=== PATIENT | female | born 1990 | race Caucasian/White ===

== ENCOUNTER 2020-12-31 12:25 | Emergency (ER) | payer MEDICAID, SELFPAY ==
[2020-12-31 12:55] VITALS: BP 130/86; BP 132/86; PULSE 120; PULSE 123; RESP 18; TEMP 36.6; O2SAT 100; O2SAT 99; BMI 26.6
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
== END 2020-12-31 13:52 | disposition home or self-care (01) ==
PROVIDERS: Emergency Provider Emergency Medicine Emergency Medical Services
DX: S01.81XA Laceration without foreign body of other part of head, initial encounter (principal); S06.0X0A Concussion without loss of consciousness, initial encounter; G44.309 Post-traumatic headache, unspecified, not intractable; X99.1XXA Assault by knife, initial encounter; Y93.9 Activity, unspecified; Y92.410 Unspecified street and highway as the place of occurrence of the external cause; Y99.9 Unspecified external cause status
CPT/HCPCS: 12011; 99283

== ENCOUNTER 2021-04-10 15:48 | Emergency (ER) | payer MEDICAID, SELFPAY ==
[2021-04-10 16:52] VITALS: BP 134/80; PULSE 78; RESP 16; TEMP 36.8; O2SAT 98; BMI 26.6
--- NOTE | 2021-04-10 22:21 | ED.SKABFB ---
HPI - Skin/Abscess/Foreign Bdy General Chief complaint: Skin/Abscess/Foreign Body Stated complaint: Right hand cellulitis Time Seen by Provider: 04/10/21 22:16 History of Present Illness HPI narrative: Patient is a 30-year-old female with a drug. Developed redness over her dominant hand and the dorsum. Positive redness positive discharge. Patient vaccinated for COVID no cough no congestion upper respiratory symptoms. No chest pain or shortness of breath no systemic complaints Related Data Previous Rx's Medication Instructions Recorded clindamycin HCl 300 mg capsule 300 mg PO Q6H #40 cap 04/10/21 Allergies Allergy/AdvReac Type Severity Reaction Status Date / Time No Known Allergies Allergy Verified 04/10/21 16:52 [No Known Allergies*] Review of Systems Review of Systems: No fever no chills no chest pain or shortness breath no nausea no vomiting Yes all other systems are reviewed and are negative [facility] Past Medical History Attestation statement: The following information was validated with the patient. Medical History Asthma Hypothyroid Polysubstance (including opioids) dependence with physiol dependence Social History Social History Use of substances other than those prescribed or required for medical reasons: Yes Substance Use Type: Opiates Advance Directives: No Advance Directives Information Provided: No Patient : No Physical Exam Vital Signs: Vital Signs: Last Vital Signs Temp 97.2 F 04/10/21 22:29 Pulse 78 04/10/21 22:29 Resp 19 04/10/21 22:29 BP 116/72 04/10/21 22:29 Pulse Ox 98 04/10/21 22:29 BMI result Body Mass Index 26.6 Appearance: Alert. Oriented X3. No acute distress. Eyes: Pupils equal, round and reactive to light. ENT: Pharynx normal. Neck: Normal inspection. Neck supple. No lymph nodes noted. No crepitus CVS: Normal heart rate and rhythm. Pulses normal. Normal S1 and S2 Respiratory: No respiratory distress. Breath sounds normal. No Wheezing. No rales Abdomen: Soft and nontender. No rigidity. No distention. good BS x4 Skin: Positive abscess noted over the dorsum of right hand. Obvious pus oozing out from the wound. The wound is proximally 5 cm x 5 cm in size. Multiple rings noted in the finger. Extremities: No lower extremity edema. Neurovascular intact to all extremities. No Lacerations. No Rash Neuro: Oriented X 3. No motor deficit. No sensory deficit. Moving all extermities. No slurred speech MDM - Skin/Abscess/Foreign Bdy MDM Narrative Medical decision making narrative: Will have the rings removed. There is a large abscess noted over the dorsum of right hand. Patient's dominant hand. The wound was IND. Large amount of pus was expressed. Antibiotic was started. Explained to patient the need for close follow-up. Patient referred to Hand for further management. Currently in stable condition. Narcan also given. Care team involving giving patient additional tips on rehab. Post I&D patient neurovascularly intact Differential Diagnosis Differential diagnosis: Likely abscess of skin or subcutaneous tissue Medical Records Attestation: I reviewed the patient's medical records. Lab Data Attestation: I reviewed the patient's lab results. Procedures Abscess I/D Site: hand Side (if applicable): right Local Anesthetic: lidocaine 1% Amount of anesthesia used (mL): 5 Technique: incised with blade Amount of fluid expressed (mL): 10 Sent for culture/gram staining?: Yes Irrigation: Yes Packing used?: iodoform Discharge Plan Discharge Clinical Impression: Cellulitis, Abscess Patient Disposition: Home, Self-Care Instructions: Abscess (ED), Abscess Incision and Drainage (DC) Prescriptions: New clindamycin HCl 300 mg capsule 300 mg PO Q6H Qty: 40 0RF Referrals: Ameena Alatorre MD [Physician] - 2 days (Please make sure you go to rehab. Using heroin can kill you. Please go to a hand surgeon for follow-up.)
[2021-04-10] MEDS: Clindamycin HCL 300 MG CAPSULE PO (22:24)
[2021-04-10 22:29] VITALS: BP 116/72; PULSE 78; RESP 19; TEMP 36.2; O2SAT 98
--- NOTE | 2021-04-10 23:11 | MHC.CARE ---
Pt was requesting information about detox so CARE Team provided her with the list of detoxes and their contact information.
[2021-04-10] MEDS: Naloxone HCl Nasal TAKE HOME 4 MG SPRAY NOSTRILALT (23:12)
== END 2021-04-10 23:39 | disposition home or self-care (01) ==
PROVIDERS: Emergency Provider Emergency Medicine Emergency Medical Services; PCP Family Medicine
DX: L02.511 Cutaneous abscess of right hand (principal); L03.113 Cellulitis of right upper limb; F11.20 Opioid dependence, uncomplicated; F19.20 Other psychoactive substance dependence, uncomplicated
CPT/HCPCS: 10060; 87071; 87205; 99284

== ENCOUNTER 2021-07-20 20:55 | Emergency (ER) | payer MEDICAID, SELFPAY ==
[2021-07-20 21:13] VITALS: BP 110/77; BP 118/76; PULSE 104; PULSE 91; RESP 15; TEMP 36.7; O2SAT 98; O2SAT 99; BMI 25.0
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
[2021-07-20 21:29] VITALS: BP 105/75; PULSE 84; RESP 14; O2SAT 97
[2021-07-20 22:16] VITALS: BP 110/74; PULSE 84; RESP 15; O2SAT 96
--- NOTE | 2021-07-20 23:42 | HO.SUDE ---
Pt declined SUDE
[2021-07-20] MEDS: Naloxone HCl Nasal TAKE HOME 4 MG SPRAY NOSTRILALT (23:58)
== END 2021-07-20 23:58 | disposition home or self-care (01) ==
PROVIDERS: Emergency Provider Emergency Medicine Emergency Medical Services
DX: R53.83 Other fatigue (principal); T50.911A Poisoning by multiple unspecified drugs, medicaments and biological substances, accidental (unintentional), initial encounter; F11.20 Opioid dependence, uncomplicated; F19.20 Other psychoactive substance dependence, uncomplicated; Y92.480 Sidewalk as the place of occurrence of the external cause
CPT/HCPCS: 99283

== ENCOUNTER 2021-08-26 21:52 | Emergency (ER) | payer MEDICAID, SELFPAY ==
--- NOTE | ~2021-08-26 | CT_ITS ---
EXAMINATION: NONCONTRAST HEAD CT NONCONTRAST CERVICAL SPINE CT INDICATION INFORMATION: Unresponsive, head trauma COMPARISON: None TECHNIQUE: Separate noncontrast CT examinations of the head and cervical spine were performed. Coronal head CT images and coronal and sagittal cervical spine images were created at the technologist workstation. DLP: 1133 mGy-cm DOSE LOWERING TECHNIQUES: This CT examination was performed using dose optimization techniques as appropriate, variously including the following: - Automated exposure control - Adjustment of mA and/or kV according to patient size (this includes techniques or standardized protocols for targeted exams were dose is matched to indication/reason for exam; i.e. extremities or head) - Use of iterative reconstruction technique FINDINGS: Head: Limited assessment in some regions due to motion artifact. There is no evidence of acute intracranial hemorrhage or territorial infarction. No abnormal mass-effect or midline shift is seen. [place] to white matter differentiation is well preserved. No extra-axial fluid collections are identified. The ventricles are normal in size. There is no abnormal attenuation within the brain parenchyma. No acute fracture is seen. There is anterior inferior frontal scalp soft tissue swelling. Mucous retention cyst noted in the left maxillary sinus. The mastoid air cells are well-aerated. Cervical spine: Limited evaluation in some regions due to motion artifact. There is anatomic alignment of the vertebral bodies and posterior elements. Vertebral body heights are maintained. Intervertebral disc spaces are preserved. No appreciable acute fracture. No prevertebral soft tissue swelling. Visualized portions of the lung apices are unremarkable. The thyroid gland is unremarkable. CT/CT cervical spine wo con IMPRESSION: Limited evaluation of the head and cervical spine due to motion artifact. Grossly, no acute findings identified.
--- NOTE | 2021-08-26 21:54 | ECG_ITS ---
Test Reason : OVERDOSED Blood Pressure : / mmHG Vent. Rate : 046 BPM Atrial Rate : 046 BPM P-R Int : 122 ms QRS Dur : 094 ms QT Int : 434 ms P-R-T Axes : -25 071 065 degrees QTc Int : 379 ms Poor data quality, interpretation may be adversely affected Sinus bradycardia Otherwise normal ECG When compared with ECG of 04-OCT-2018 21:31, Vent. rate has decreased BY 38 BPM Non-specific change in ST segment in Inferior leads Non-specific change in ST segment in Anterior leads T wave inversion no longer evident in Inferior leads T wave inversion less evident in Anterolateral leads QT has shortened Referred By: David Roberts Electronically Signed By:KAMAR ROJAS MD
[2021-08-26 22:14] VITALS: BP 125/83; PULSE 53; RESP 17; TEMP 36.7; O2SAT 99
--- NOTE | 2021-08-26 22:34 | ED_ITS ---
HPI - General Adult General Chief complaint: ETOH/Substance Use Stated complaint: od/ altered mental/fall Time Seen by Provider: 08/26/21 22:13 Source: EMS and old records reviewed Mode of arrival: EMS Limitations: altered mental status History of Present Illness HPI narrative: 31-year-old female found by a bystander unresponsive on the backyard of in- house, reviewing old record of the patient patient had a history of drug abuse, patient was given Narcan by EMS with slight responsiveness, patient was sleeping outside in the rain, patient response to painful stimuli and sternal rub, history is not obtainable from the patient at the moment, patient has a dry blood on her right side of the face. Concern by EMS that the patient was bradycardic. Related Data Previous Rx's Medication Instructions Recorded clindamycin HCl 300 mg capsule 300 mg PO Q6H #40 caps 04/10/21 Allergies Allergy/AdvReac Type Severity Reaction Status Date / Time No Known Allergies Allergy Verified 04/10/21 16:52 [No Known Allergies*] Review of Systems Review of Systems: Yes Unobtainable due to mental status PMFSH Past Medical History Medical History Asthma Hypothyroid Polysubstance (including opioids) dependence with physiol dependence Social History Social History Substance Use Type: Opiates Advance Directives: No Advance Directives Information Provided: No Physical Exam ED Vital Signs: Vital Signs - 24 hr 08/26/21 22:14 08/26/21 23:42 08/27/21 00:25 Temperature 98.0 F 97.9 F 98.2 F Pulse Rate 53 67 59 Respiratory Rate 17 15 18 Blood Pressure 125/83 112/73 124/68 Pulse Oximetry 99 99 98 Oxygen Delivery Method Room Air Room Air 08/27/21 01:39 08/27/21 02:47 08/27/21 04:08 Temperature 98.1 F 98.4 F 97.1 F Pulse Rate 59 82 58 Respiratory Rate 13 11 L 13 Blood Pressure 106/66 107/75 111/73 Pulse Oximetry 97 100 98 Oxygen Delivery Method Room Air Room Air Room Air BMI result Body Mass Index 26.4 Vital signs have been reviewed as appeared to be correct. Blood pressure yareli l. Heart rate normal. Respiration rate normal. Temperature normal. Oxygen saturation normal. Appearance: Unresponsive Head: Normal external exam. Normocephalic. Dry blood on the right eyelid was small superficial laceration on the eyelid about 0.8 cm with no active blee ding.. No Campbell signs noted. No raccoon eyes noted Eyes: PERRLA. EOMI. Conjunctiva and sclera normal. Eyelids normal. ENT: TM's Normal. Pharynx normal. Uvula midline. Moist mucous membranes. No trismus noted. No drooling noted. No muffled voice noted. Neck: Normal inspection. Neck supple. FROM. No adenopathy. Thyroid Normal. No meningeal signs. No neck mass noted. CVS: Normal heart rate and rhythm. Heart sound normal. No murmurs noted. Pulses normal throughout. Respiratory: No respiratory distress. Painless inspiration. Breath sounds normal. No wheezes/rales/rhonchi noted. Chest nontender. No accessory muscle usage noted or decreased air movement noted. Abdomen: Soft and nontender. Bowel sounds normal in all 4 quadrants. No distention noted. No organomegaly noted. No visible injury noted. Back: No CVA tenderness. Full range of motion noted. Skin: Skin warm and dry. Normal skin color. Normal skin turgor. No rashes/lesions/lacerations noted. Extremities: No lower extremity edema. Extremities exhibit normal range of motion. Extremities nontender. Neuro: Fully responsive to painful stimuli and sternal rubbing.. Cranial nerve exam: II-XII are grossly intact No motor deficit. No sensory deficit. Reflexes normal. Course Course Course Narrative: 31 years old female was found last night by bystander on the backyard, patient initially was on conscious, patient was observed overnight in the ED had a negative CT head and C-spine, patient was positive for polysubstance in the urine, patient now is waking up more awake and oriented, patient admitted that she is homeless she live in [facility], patient be discharged after breakfast. Medical Decision Making Lab Data Lab results reviewed: Yes I reviewed the patient's lab results. Result diagrams: 08/26/21 22:45 08/26/21 22:45 Labs: Lab Results 08/26/21 08/26/21 08/26/21 Range/Units 22:45 22:45 22:45 WBC 7.7 (4.8-10.8) X10*3/uL RBC 4.55 (4.20-5.50) X10*6/uL Hgb 13.4 (12.0-16.0) g/dl Hct 39.5 (37.0-47.0) % MCV 86.8 (80.0-98.0) fL MCH 29.5 (27.0-33.0) pg MCHC 33.9 (31.0-35.0) g/dl RDW 13.4 (11.0-16.0) % Plt Count 356 (160-400) X10*3/uL MPV 8.7 L (9.4-12.3) fL Immature Gran % (Auto) 0.1 (0.0-0.4) % Neut % (Auto) 51.7 (45-73) % Lymph % (Auto) 39.0 (20-40) % [place] % (Auto) 6.9 (2-11) % Eos % (Auto) 1.4 (0-4) % Baso % (Auto) 0.9 (0-2) % Lymph # (Auto) 3.0 (1.2-4.9) X10*3/uL [place] # (Auto) 0.5 (0.1-1.2) X10*3/uL Eos # (Auto) 0.1 (0.0-0.4) X10*3/uL Baso # (Auto) 0.1 (0.0-0.2) X10*3/uL Abs Immat Gran (auto) 0.01 (0.00-0.03) X10*3/uL Absolute Neuts (auto) 4.0 (2.0-8.3) x10*3/uL Absolute Nucleated RBC 0.000 (0.0-0.012) X10*3/uL Nucleated RBC % (auto) 0.0 (0.0-0.2) /100WBC Sodium 143 (135-145) mmol/L Potassium 3.7 (3.3-5.1) mmol/L Chloride 109 H (96-108) mmol/L Carbon Dioxide 22 (22-29) mmol/L Anion Gap 16 (12-20) BUN 12 (9-16) mg/dL Creatinine 0.79 (0.5-1.4) mg/dL Estim Creat Clear Calc TNP Estimated GFR > 60 Random Glucose 97 (60-115) mg/dL Calcium 8.9 (8.4-10.2) mg/dL Total Bilirubin 0.5 (0.0-1.0) mg/dL Direct Bilirubin 0.2 (0.0-0.5) mg/dL AST 25 (5-31) U/L ALT 16 (0-31) U/L Alkaline Phosphatase 71 (39-117) U/L Troponin I High Sens < 3.5 (<3.5-17.0) ng/L Total Protein 7.1 (6.5-8.0) g/dL Albumin 4.3 (3.5-5.0) g/dL Lipase 16 (8-78) U/L Urine Color Urine Appearance Urine pH (5.0-8.0) Ur Specific [place] (1.005-1.025) Urine Protein (NEG-TRACE) MG/DL Urine Glucose (UA) (NEG) MG/DL Urine Ketones (NEG) MG/DL Urine Blood (NEG) Urine Nitrite (NEG) Ur Leukocyte Esterase (NEG) Urine Test (NEGATIVE) Salicylates < 5.0 L (15-30) mg/dL Urine Opiates Screen (Not Detect) Urine Fentanyl Screen (Not Detect) Acetaminophen < 1 (<30) mcg/mL Ur Barbiturates Screen (Not Detect) Ur Phencyclidine Scrn (Not Detect) Ur Amphetamines Screen (Not Detect) U Benzodiazepines Scrn (Not Detect) Urine Cocaine Screen (Not Detect) U Marijuana (THC) Screen (Not Detect) Ethyl Alcohol < 10 mg/dL COVID-19 ([facility]) (Negative) COVID-19 Clin Com 08/26/21 08/27/21 08/27/21 Range/Units 22:45 02:15 02:15 WBC (4.8-10.8) X10*3/uL RBC (4.20-5.50) X10*6/uL Hgb (12.0-16.0) g/dl Hct (37.0-47.0) % MCV (80.0-98.0) fL MCH (27.0-33.0) pg MCHC (31.0-35.0) g/dl RDW (11.0-16.0) % Plt Count (160-400) X10*3/uL MPV (9.4-12.3) fL Immature Gran % (Auto) (0.0-0.4) % Neut % (Auto) (45-73) % Lymph % (Auto) (20-40) % [place] % (Auto) (2-11) % Eos % (Auto) (0-4) % Baso % (Auto) (0-2) % Lymph # (Auto) (1.2-4.9) X10*3/uL [place] # (Auto) (0.1-1.2) X10*3/uL Eos # (Auto) (0.0-0.4) X10*3/uL Baso # (Auto) (0.0-0.2) X10*3/uL Abs Immat Gran (auto) (0.00-0.03) X10*3/uL Absolute Neuts (auto) (2.0-8.3) x10*3/uL Absolute Nucleated RBC (0.0-0.012) X10*3/uL Nucleated RBC % (auto) (0.0-0.2) /100WBC Sodium (135-145) mmol/L Potassium (3.3-5.1) mmol/L Chloride (96-108) mmol/L Carbon Dioxide (22-29) mmol/L Anion Gap (12-20) BUN (9-16) mg/dL Creatinine (0.5-1.4) mg/dL Estim Creat Clear Calc Estimated GFR Random Glucose (60-115) mg/dL Calcium (8.4-10.2) mg/dL Total Bilirubin (0.0-1.0) mg/dL Direct Bilirubin (0.0-0.5) mg/dL AST (5-31) U/L ALT (0-31) U/L Alkaline Phosphatase (39-117) U/L Troponin I High Sens (<3.5-17.0) ng/L Total Protein (6.5-8.0) g/dL Albumin (3.5-5.0) g/dL Lipase (8-78) U/L Urine Color YELLOW Urine Appearance CLEAR Urine pH 6.0 (5.0-8.0) Ur Specific [place] 1.025 (1.005-1.025) Urine Protein NEG (NEG-TRACE) MG/DL Urine Glucose (UA) NEG (NEG) MG/DL Urine Ketones 15 (NEG) MG/DL Urine Blood NEG (NEG) Urine Nitrite NEG (NEG) Ur Leukocyte Esterase NEG (NEG) Urine Test NEGATIVE (NEGATIVE) Salicylates (15-30) mg/dL Urine Opiates Screen (Not Detect) Urine Fentanyl Screen (Not Detect) Acetaminophen (<30) mcg/mL Ur Barbiturates Screen (Not Detect) Ur Phencyclidine Scrn (Not Detect) Ur Amphetamines Screen (Not Detect) U Benzodiazepines Scrn (Not Detect) Urine Cocaine Screen (Not Detect) U Marijuana (THC) Screen (Not Detect) Ethyl Alcohol mg/dL COVID-19 ([facility]TE) Negative (Negative) COVID-19 Clin Com See Note 08/27/21 Range/Units 02:15 WBC (4.8-10.8) X10*3/uL RBC (4.20-5.50) X10*6/uL Hgb (12.0-16.0) g/dl Hct (37.0-47.0) % MCV (80.0-98.0) fL MCH (27.0-33.0) pg MCHC (31.0-35.0) g/dl RDW (11.0-16.0) % Plt Count (160-400) X10*3/uL MPV (9.4-12.3) fL Immature Gran % (Auto) (0.0-0.4) % Neut % (Auto) (45-73) % Lymph % (Auto) (20-40) % [place] % (Auto) (2-11) % Eos % (Auto) (0-4) % Baso % (Auto) (0-2) % Lymph # (Auto) (1.2-4.9) X10*3/uL [place] # (Auto) (0.1-1.2) X10*3/uL Eos # (Auto) (0.0-0.4) X10*3/uL Baso # (Auto) (0.0-0.2) X10*3/uL Abs Immat Gran (auto) (0.00-0.03) X10*3/uL Absolute Neuts (auto) (2.0-8.3) x10*3/uL Absolute Nucleated RBC (0.0-0.012) X10*3/uL Nucleated RBC % (auto) (0.0-0.2) /100WBC Sodium (135-145) mmol/L Potassium (3.3-5.1) mmol/L Chloride (96-108) mmol/L Carbon Dioxide (22-29) mmol/L Anion Gap (12-20) BUN (9-16) mg/dL Creatinine (0.5-1.4) mg/dL Estim Creat Clear Calc Estimated GFR Random Glucose (60-115) mg/dL Calcium (8.4-10.2) mg/dL Total Bilirubin (0.0-1.0) mg/dL Direct Bilirubin (0.0-0.5) mg/dL AST (5-31) U/L ALT (0-31) U/L Alkaline Phosphatase (39-117) U/L Troponin I High Sens (<3.5-17.0) ng/L Total Protein (6.5-8.0) g/dL Albumin (3.5-5.0) g/dL Lipase (8-78) U/L Urine Color Urine Appearance Urine pH (5.0-8.0) Ur Specific [place] (1.005-1.025) Urine Protein (NEG-TRACE) MG/DL Urine Glucose (UA) (NEG) MG/DL Urine Ketones (NEG) MG/DL Urine Blood (NEG) Urine Nitrite (NEG) Ur Leukocyte Esterase (NEG) Urine Test (NEGATIVE) Salicylates (15-30) mg/dL Urine Opiates Screen POSITIVE H (Not Detect) Urine Fentanyl Screen POSITIVE H (Not Detect) Acetaminophen (<30) mcg/mL Ur Barbiturates Screen Not Detected (Not Detect) Ur Phencyclidine Scrn Not Detected (Not Detect) Ur Amphetamines Screen Not Detected (Not Detect) U Benzodiazepines Scrn Not Detected (Not Detect) Urine Cocaine Screen POSITIVE H (Not Detect) U Marijuana (THC) Screen Not Detected (Not Detect) Ethyl Alcohol mg/dL COVID-19 ([facility]TE) (Negative) COVID-19 Clin Com Imaging Data Head and cervical spine CT: Attestation: I personally reviewed and interpreted this imaging study as follows: Radiologist's impression: Limited evaluation of the head and cervical spine due to motion artifact. Grossly, no acute findings identified. Discharge Plan Discharge Clinical Impression: Polysubstance abuse Patient Disposition: Home, Self-Care Instructions: Polysubstance Abuse (ED) Prescriptions: No Action clindamycin HCl 300 mg capsule 300 mg PO Q6H Qty: 40 0RF Referrals: Physician,Unknown J [Primary Care Provider] -
[2021-08-26 22:51] LABS: MANUAL DIFF FLAG NO
[2021-08-26 22:58] LABS: Basophils Absolute Auto 0.1 X10*3/uL (0.0-0.2); Basophils Percent Auto 0.9 % (0-2); Eosinophils Absolute Auto 0.1 X10*3/uL (0.0-0.4); Eosinophils Percent Auto 1.4 % (0-4); Hematocrit 39.5 % (37.0-47.0); Hemoglobin 13.4 g/dl (12.0-16.0); Imm Gran Abs Auto 0.01 X10*3/uL (0.00-0.03); Imm Gran Pct Auto 0.1 % (0.0-0.4); Mean Corpuscular HGB Conc 33.9 g/dl (31.0-35.0); Mean Corpuscular Hemoglobin 29.5 pg (27.0-33.0); Mean Corpuscular Volume 86.8 fL (80.0-98.0); Mean Platelet Volume 8.7 fL (9.4-12.3); Monocytes Absolute Auto 0.5 X10*3/uL (0.1-1.2); Monocytes Percent Auto 6.9 % (2-11); Neutrophils Percent Auto 51.7 % (45-73); Platelet Count 356 X10*3/uL (160-400); Red Blood Count 4.55 X10*6/uL (4.20-5.50); Red Cell Distribution Width 13.4 % (11.0-16.0); White Blood Count 7.7 X10*3/uL (4.8-10.8)
[2021-08-26 23:16] LABS: COVID-19 Test Negative (Negative); IDNOW Serial# 16C4AD1C
[2021-08-26 23:20] LABS: Alanine Aminotransferase 16 U/L (0-31); Albumin Level 4.3 g/dL (3.5-5.0); Alkaline Phosphatase 71 U/L (39-117); Anion Gap 16 (12-20); Aspartate Amino Transferase 25 U/L (5-31); Bilirubin Direct 0.2 mg/dL (0.0-0.5); Bilirubin Total 0.5 mg/dL (0.0-1.0); Blood Urea Nitrogen 12 mg/dL (9-16); Calcium 8.9 mg/dL (8.4-10.2); Carbon Dioxide 22 mmol/L (22-29); Chloride 109 mmol/L (96-108); Estimated Glomerular Filt Rate > 60; Ethanol < 10 mg/dL; Glucose Random 97 mg/dL (60-115); Lipase 16 U/L (8-78); Potassium 3.7 mmol/L (3.3-5.1); Sodium 143 mmol/L (135-145); Total Protein 7.1 g/dL (6.5-8.0)
[2021-08-26 23:25] LABS: Troponin-I High Sensitivity < 3.5 ng/L (<3.5-17.0)
[2021-08-26 23:42] VITALS: BP 112/73; PULSE 67; RESP 15; TEMP 36.6; O2SAT 99
[2021-08-27] VITALS (7 sets, daily range): BP systolic 106–154; BP diastolic 66–90; PULSE 50–85; RESP 11–18; TEMP 36.2–36.9; O2SAT 95–100; BMI 26.4
--- NOTE | 2021-08-27 00:21 | PC.NURSE ---
Multiple attempts to insert IV line by multiple staff members-no success-pt is a difficult stick-provider Dr. Roberts notified-no new orders at this time.
[2021-08-27 01:33] LABS: Acetaminophen LAB < 1 mcg/mL (<30); Salicylate < 5.0 mg/dL (15-30)
[2021-08-27 02:26] LABS: Appearance Urine CLEAR; Color Urine YELLOW; Glucose Urine UA NEG (NEG); Leukocyte Esterase Urine NEG (NEG); Nitrite Urine NEG (NEG); Specific Gravity - Urine 1.025 (1.005-1.025); Urine Blood NEG (NEG); Urine Ketones 15 MG/DL (NEG); Urine Protein NEG (NEG-TRACE)
[2021-08-27 02:27] LABS: UPreg QC Valid YES; Urine Pregnancy NEGATIVE (NEGATIVE)
[2021-08-27 02:37] LABS: Amphetamine Screen Urine Not Detected (Not Detect); Barbiturates, Urine Not Detected (Not Detect); Benzodiazepines Screen Urine Not Detected (Not Detect); Cannabinoid Screen Urine Not Detected (Not Detect); Cocaine Screen Urine POSITIVE (Not Detect); Fentanyl, urine POSITIVE (Not Detect); Opiate Screen Urine POSITIVE (Not Detect); Phencyclidine Screen Urine Not Detected (Not Detect)
== END 2021-08-27 07:23 | disposition home or self-care (01) ==
PROVIDERS: Emergency Provider Emergency Medicine
DX: R41.82 Altered mental status, unspecified (principal); R00.1 Bradycardia, unspecified; M54.2 Cervicalgia; Z20.822 Contact with and (suspected) exposure to COVID-19; Z79.899 Other long term (current) drug therapy
CPT/HCPCS: 70450; 72125; 80048; 80076; 80143; 80179; 80307; 81003; 81025; 82077; 83690; 84484; 85025; 87635; 93005; 96360; 99284; 99285

== ENCOUNTER 2021-09-25 18:38 | Emergency (ER) | payer MEDICAID, SELFPAY ==
[2021-09-25 18:46] VITALS: BP 129/88; PULSE 112; RESP 18; TEMP 37.1; O2SAT 98; BMI 23.3
== END 2021-09-26 02:02 | disposition left against medical advice (07) ==
PROVIDERS: Emergency Provider Emergency Medicine
DX: L03.116 Cellulitis of left lower limb (principal); F19.10 Other psychoactive substance abuse, uncomplicated; F11.20 Opioid dependence, uncomplicated
CPT/HCPCS: 99281

== ENCOUNTER 2022-01-06 18:40 | Emergency (ER) | payer OTHER, SELFPAY ==
--- NOTE | ~2022-01-06 | CT_ITS ---
EXAMINATION: CT ABDOMEN AND PELVIS WITH CONTRAST CLINICAL INFORMATION: Bilateral flank pain with question of pyelonephritis COMPARISON: None TECHNIQUE: Multidetector volumetric images were obtained from the superior aspect of the liver through the pubic symphysis following administration 85 mL of Omnipaque 350 intravenous contrast. Sagittal and coronal reformatted images were obtained on the technologist's workstation. Oral contrast: No This CT examination was performed using dose optimization techniques as appropriate, variously including the following: *Automated exposure control *Adjustment of mA and/or kV according to patient size (this includes techniques or standardized protocols for targeted exams where dose is matched to indication/reason for exam; i.e. extremities or head) *Use of iterative reconstruction technique DLP: 737 mGy-cm FINDINGS: LUNG BASES: The visualized lung bases are unremarkable. LIVER, GALLBLADDER, AND BILIARY TREE: The liver is mildly enlarged measuring 18.9 cm in cephalocaudad dimension. No focal hepatic lesion or significant biliary ductal dilatation is present. There is some minimal prominence of central bile ducts. The common bile duct measures 0.5 cm. The gallbladder is unremarkable with no evidence of radiopaque gallstones, gallbladder wall thickening, or obvious pericholecystic inflammatory changes. PANCREAS: Unremarkable. SPLEEN: Unremarkable. ADRENAL GLANDS: Unremarkable. KIDNEYS AND URETERS: The kidneys are normal in size, shape, and attenuation. No striated nephrogram is seen. No focal hypodensities are seen. No hydronephrosis, hydroureter, or calculi seen. No perinephric stranding. BLADDER: Unremarkable. GASTROINTESTINAL TRACT: The small and large bowel are unremarkable. There is a moderate stool burden in the colon The appendix is unremarkable. ABDOMINAL WALL: No significant hernia is appreciated. LYMPH NODES: No retroperitoneal lymphadenopathy. VASCULAR: Unremarkable. PELVIC VISCERA: An anteverted uterus is present with an IUD in good position. An abnormal adnexal mass is not seen. Trace fluid present in the cul-de-sac. OSSEOUS STRUCTURES: Unremarkable. CT/CT abdomen pelvis w IV con IMPRESSION: A cause for the patient's flank pain has not been found. No renal abnormalities are seen and there is no CT evidence to suggest pyelonephritis. Incidental note made of mild hepatomegaly and a moderate stool burden in the colon and other findings described above. Fleischner guidelines were followed.
[2022-01-06 18:57] VITALS: BP 157/87; PULSE 94; RESP 18; TEMP 36.2; O2SAT 97; BMI 27.1
--- NOTE | 2022-01-06 19:12 | ED_ITS ---
HPI - Abdominal Pain General Chief Complaint: Abdominal Pain <Glenn Fields MD - Last Filed: 01/06/22 19:13> Stated Complaint: Kidney Pain <Glenn Fields MD - Last Filed: 01/06/22 19:13> Time Seen by Provider: 01/06/22 21:17 <Glenn Fields MD - Last Filed: 01/06/22 19:13> Source: patient <MARIA ESTHER Walters - Last Filed: 01/07/22 01:09> Mode of arrival: ambulatory <MARIA ESTHER Walters - Last Filed: 01/07/22 01:09> Limitations: no limitations <MARIA ESTHER Walters - Last Filed: 01/07/22 01:09> History of Present Illness HPI narrative: 31 year old female history of polysubstance, hypothyroid, asthma, and pyelonephritis 1 year ago presents today with 3 days history of dysuria and lower right flank pain. Associated symptoms include chills, dysuria, increased frequency of urination. Pain is described as a stabbing right lower flank pain that comes and goes. Rates the pain a 8/10. Did not take any medications at home. Admits to daily drug use including fentanyl and heroin, last usage was this morning, 1 bag. Denies shortness of breath, chest pain, nausea, vomiting, diarrhea, hematuria, abnormal vaginal discharge. Does does not get a menstrual due to having an IUD. Denies chance of or STD. Patient also presents with a with a bump on the posterior aspect of head, associated erythema and pain. Denies any purulent discharge from the area. Denies any trauma to the area, no head trauma. Patient is homeless. <MARIA ESTHER Walters - Last Filed: 01/07/22 01:09> Related Data Home Medications: Previous Rx's Medication Instructions Recorded clindamycin HCl 300 mg capsule 300 mg PO Q6H #40 caps 04/10/21 levofloxacin 750 mg tablet 750 mg PO DAILY 7 days #7 tabs 01/07/22 <Glenn Fields MD - Last Filed: 01/06/22 19:13> Allergies/Adverse Reactions: Allergies Allergy/AdvReac Type Severity Reaction Status Date / Time No Known Allergies Allergy Verified 04/10/21 16:52 [No Known Allergies*] <Glenn Fields MD - Last Filed: 01/06/22 19:13> Review of Systems Review of Systems Constitutional : No Weight loss, No Fever, + Chills, No Fatigue, No Malaise HEENT/Mouth : Bump on head, No sore throat, No Rhinorrhea Eyes: No Eye Pain, No Swelling, No Redness Cardiovascular : No Chest Pain, No SOB, No Dyspnea on Exertion, No Orthopnea, No Edema, No Palpitations Respiratory : No Cough, No Sputum, No Wheezing Gastrointestinal : No Nausea, No Vomiting, No Diarrhea, No Constipation, + abdominal Pain, No Hematochezia, No Melena Genitourinary : + Dysuria, + Urinary Frequency, No Hematuria, + right lower flank pain Musculoskeletal : No joint pain, No Myalgias, No Joint Swelling Skin : No Skin Lesions, No rash Neuro : No Weakness, No Numbness, No Dizziness, No Headache Psych : No Anxiety/Panic, No Depression All other systems reviewed and are negative <MARIA ESTHER Walters - Last Filed: 01/07/22 01:09> Yes all other systems are reviewed and are negative <MARIA ESTHER Walters - Last Filed: 01/07/22 01:09> [facility] Past Medical History Attestation statement: The following information was validated with the patient. <MARIA ESTHER Walters - Last Filed: 01/07/22 01:09> Source: old records reviewed and nursing notes reviewed <MARIA ESTHER Walters - Last Filed: 01/07/22 01:09> Medical History: Medical History Asthma Hypothyroid Polysubstance (including opioids) dependence with physiol dependence <Glenn Fields MD - Last Filed: 01/06/22 19:13> Social History Social History: Social History Alcohol intake: current Alcohol intake frequency: a few times a week Smoked in Last 30 Days: Yes Substance Use Type: Crack/Cocaine, Heroin and Opiates Advance Directives: No Patient : No <Glenn Fields MD - Last Filed: 01/06/22 19:13> Physical Exam ED Vital Signs: Vital Signs - 24 hr 01/06/22 18:57 01/06/22 22:00 Temperature 97.2 F 97.7 F Pulse Rate 94 60 Respiratory Rate 18 Blood Pressure 157/87 H 110/76 Pulse Oximetry 97 95 Oxygen Delivery Method Room Air Room Air BMI result Body Mass Index 27.1 <Glenn Fields MD - Last Filed: 01/06/22 19:13> Vital Signs - 24 hr 01/06/22 18:57 01/06/22 22:00 Temperature 97.2 F 97.7 F Pulse Rate 94 60 Respiratory Rate 18 Blood Pressure 157/87 H 110/76 Pulse Oximetry 97 95 Oxygen Delivery Method Room Air Room Air BMI result Body Mass Index 27.1 vss <MARIA ESTHER Walters - Last Filed: 01/07/22 01:09> Appearance: Alert.? Oriented X3.? No acute distress.? Head: Normocephalic, atraumatic, no step-offs or deformities. Moderate size lump/indurated area to the posterior apex of the head, no fluctuance, or overlying warmth. Eyes: Pupils equal, round and reactive to light.? ENT: Pharynx normal.? Neck: Normal inspection.? Neck supple.? CVS: Normal heart rate and rhythm.? Pulses normal.? Respiratory: No respiratory distress.? Breath sounds normal.? Abdomen: Soft and nontender.?Bladder mildly distended, tender to palpation. Skin: Skin warm and dry.? Normal skin color.? Normal skin turgor.? Extremities: No lower extremity edema.? No calf ttp. 5/5 strength to bilateral upper and lower extremities Back: No midline tenderness, no C-spine tenderness, full range of motion, + CVA tenderness to right flank area Neuro: Oriented X 3.? No motor deficit.? No sensory deficit. CN 2-12 intact . Ambulating with steady gait normal coordination. Normal [id number]. Normal rapid alternating movements. NIH stroke scale 0 <MARIA ESTHER Walters - Last Filed: 01/07/22 01:09> Course Reevaluation(s) Reevaluation #1: 31 yo female presents to the ED with lower abdominal pain, dysuria and foul smelling urine for a few days. No fevers, chills or other complaints. No nausea, vomiting or diarrhea. Urine labs sent. <Glenn Fields MD - Last Filed: 01/06/22 19:13> 31 yo female presents to the ED with lower abdominal pain, dysuria, chills, abd foul smelling urine for a few days. No fevers, nausea, vomiting or diarrhea. Urine labs sent. Will order CT abdomen with contrast to rule out/in pyelo. <MARIA ESTHER Walters - Last Filed: 01/07/22 01:09> Time: 19:12 <Glenn Fields MD - Last Filed: 01/06/22 19:13> Reevaluation #2: UA reveals urine nitrates and urine leukocyte esterase consistent with UTI. . CBC unremarkable. Chem w/o electrolyte abnormalities on exam. Pending lactic, cultures and ct abd and pelvis. <MARIA ESTHER Walters - Last Filed: 01/07/22 01:09> Time: 21:51 <MARIA ESTHER Walters - Last Filed: 01/07/22 01:09> Reevaluation #3: Lactic him normal limits. CT of the abdomen pelvis unable to identify cause for patient's flank pain, no renal abnormalities noted. No signs of pyelo on imaging. However based off patient's physical exam was CVA tenderness and positive urine will treat with Levaquin to cover for pyelonephritis. Will have her follow-up with Urology. Educated to return with any new or worsening symptoms, educated on worrisome signs and symptoms and when to return. Comfortable discharge <MARIA ESTHER Walters - Last Filed: 01/07/22 01:09> Time: 01:06 <MARIA ESTHER Walters - Last Filed: 01/07/22 01:09> Medications Administered Discontinued Medications Generic Name Dose Route Start Last Admin Trade Name Freq PRN Reason Stop Dose Admin Ceftriaxone Sodium 1 gm/ 50 mls @ 100 mls/hr 01/06/22 21:49 01/07/22 00:48 Sodium Chloride IV 01/06/22 22:18 100 mls/hr ONCE ONE Administration Iohexol 85 ml 01/07/22 00:31 01/07/22 00:32 Iohexol 350 Mg/Ml 100 Ml Infus..Btl IV 01/07/22 00:32 85 ml ONCE ONE Administration <Glenn Fields MD - Last Filed: 01/06/22 19:13> Medications Administered Discontinued Medications Generic Name Dose Route Start Last Admin Trade Name Edgar PRN Reason Stop Dose Admin Ceftriaxone Sodium 1 gm/ 50 mls @ 100 mls/hr 01/06/22 21:49 01/07/22 00:48 Sodium Chloride IV 01/06/22 22:18 100 mls/hr ONCE ONE Administration Iohexol 85 ml 01/07/22 00:31 01/07/22 00:32 Iohexol 350 Mg/Ml 100 Ml Infus..Btl IV 01/07/22 00:32 85 ml ONCE ONE Administration <MARIA ESTHER Walters - Last Filed: 01/07/22 01:09> MDM - Abdominal Pain MDM Narrative Medical decision making narrative: 2103 31-year-old female with a past pertinent medical history of substance abuse and pyelonephritis presents today to the emergency department with 3 days of dysuria, foul smelling urine, increased urination, right lower flank pain, and unrelated mass on posterior head. PE remarkable for right lower flank pain as well as a indurated mass on the posterior head with associated erythema. Concers for UTI vs cystitis vs pylo. No sign of acute abdomen. Unlikley appendicitis, diverticulits, kidney stone, obstructive uropathy. Will obtain CT abdomen with contrast to r/o pyelo. Indurated area on head unlikely hematoma or abscess as it is not fluctuant. No head trauma. Unlikely stroke, posterior stroke, cerebellar stroke. Likely nodule as it is hard. Advised to follow-up with PCP to monitor this. Nothing to do about it in an acute setting. Plan- labs, urine, imaging <MARIA ESTHER Walters - Last Filed: 01/07/22 01:09> Medical Records Attestation: I reviewed the patient's medical records. <MARIA ESTHER Walters - Last Filed: 01/07/22 01:09> Lab Data Attestation: I reviewed the patient's lab results. <MARIA ESTHER Walters - Last Filed: 01/07/22 01:09> Result diagrams: : 01/06/22 19:17 01/06/22 19:17 <Glenn Fields MD - Last Filed: 01/06/22 19:13> Labs: Lab Results 01/06/22 01/06/22 01/06/22 Range/Units 19:17 19:17 19:17 WBC 7.3 (4.8-10.8) X10*3/uL RBC 4.44 (4.20-5.50) X10*6/uL Hgb 13.3 (12.0-16.0) g/dl Hct 39.2 (37.0-47.0) % MCV 88.3 (80.0-98.0) fL MCH 30.0 (27.0-33.0) pg MCHC 33.9 (31.0-35.0) g/dl RDW 13.1 (11.0-16.0) % Plt Count 362 (160-400) X10*3/uL MPV 8.6 L (9.4-12.3) fL Absolute Nucleated RBC 0.000 (0.0-0.012) X10*3/uL Nucleated RBC % (auto) 0.0 (0.0-0.2) /100WBC Sodium 141 (135-145) mmol/L Potassium 3.8 (3.3-5.1) mmol/L Chloride 105 (96-108) mmol/L Carbon Dioxide 27 (22-29) mmol/L Anion Gap 13 (12-20) BUN 9 (9-16) mg/dL Creatinine 0.74 (0.5-1.4) mg/dL Estim Creat Clear Calc 108.9 Estimated GFR > 60 Random Glucose 106 (60-115) mg/dL Lactic Acid (0.5-2.0) mmol/L Calcium 9.3 (8.4-10.2) mg/dL Total Bilirubin 0.3 (0.0-1.0) mg/dL AST 19 (5-31) U/L ALT 12 (0-31) U/L Alkaline Phosphatase 73 (39-117) U/L Total Protein 7.1 (6.5-8.0) g/dL Albumin 4.4 (3.5-5.0) g/dL Beta HCG, Quant < 2 mIU/mL Urine Color Dark Yellow Urine Appearance Cloudy Urine pH 6.5 (5.0-9.0) Ur Specific [place] 1.020 (1.005-1.025) Urine Protein 30 (1+) H (Neg-Trace) mg/dL Urine Glucose (UA) Negative (Negative) mg/dL Urine Ketones Trace (Negative) mg/dL Urine Blood Small (1+) H (Negative) Urine Nitrite Positive H (Negative) Ur Leukocyte Esterase Moderate (2+) H (Negative) Urine RBC 3-5 H (0-2) /HPF Urine WBC 11-20 H (0-5) /HPF Ur Squamous Epith Cells 3-5 (0-2) /HPF Urine Bacteria 4+ (None Seen) Hyaline Casts 0-2 (0-2) /LPF 01/06/22 Range/Units 22:48 WBC (4.8-10.8) X10*3/uL RBC (4.20-5.50) X10*6/uL Hgb (12.0-16.0) g/dl Hct (37.0-47.0) % MCV (80.0-98.0) fL MCH (27.0-33.0) pg MCHC (31.0-35.0) g/dl RDW (11.0-16.0) % Plt Count (160-400) X10*3/uL MPV (9.4-12.3) fL Absolute Nucleated RBC (0.0-0.012) X10*3/uL Nucleated RBC % (auto) (0.0-0.2) /100WBC Sodium (135-145) mmol/L Potassium (3.3-5.1) mmol/L Chloride (96-108) mmol/L Carbon Dioxide (22-29) mmol/L Anion Gap (12-20) BUN (9-16) mg/dL Creatinine (0.5-1.4) mg/dL Estim Creat Clear Calc Estimated GFR Random Glucose (60-115) mg/dL Lactic Acid 0.7 (0.5-2.0) mmol/L Calcium (8.4-10.2) mg/dL Total Bilirubin (0.0-1.0) mg/dL AST (5-31) U/L ALT (0-31) U/L Alkaline Phosphatase (39-117) U/L Total Protein (6.5-8.0) g/dL Albumin (3.5-5.0) g/dL Beta HCG, Quant mIU/mL Urine Color Urine Appearance Urine pH (5.0-9.0) Ur Specific [place] (1.005-1.025) Urine Protein (Neg-Trace) mg/dL Urine Glucose (UA) (Negative) mg/dL Urine Ketones (Negative) mg/dL Urine Blood (Negative) Urine Nitrite (Negative) Ur Leukocyte Esterase (Negative) Urine RBC (0-2) /HPF Urine WBC (0-5) /HPF Ur Squamous Epith Cells (0-2) /HPF Urine Bacteria (None Seen) Hyaline Casts (0-2) /LPF <Glenn Fields MD - Last Filed: 01/06/22 19:13> Lab Results 01/06/22 01/06/22 01/06/22 Range/Units 19:17 19:17 19:17 WBC 7.3 (4.8-10.8) X10*3/uL RBC 4.44 (4.20-5.50) X10*6/uL Hgb 13.3 (12.0-16.0) g/dl Hct 39.2 (37.0-47.0) % MCV 88.3 (80.0-98.0) fL MCH 30.0 (27.0-33.0) pg MCHC 33.9 (31.0-35.0) g/dl RDW 13.1 (11.0-16.0) % Plt Count 362 (160-400) X10*3/uL MPV 8.6 L (9.4-12.3) fL Absolute Nucleated RBC 0.000 (0.0-0.012) X10*3/uL Nucleated RBC % (auto) 0.0 (0.0-0.2) /100WBC Sodium 141 (135-145) mmol/L Potassium 3.8 (3.3-5.1) mmol/L Chloride 105 (96-108) mmol/L Carbon Dioxide 27 (22-29) mmol/L Anion Gap 13 (12-20) BUN 9 (9-16) mg/dL Creatinine 0.74 (0.5-1.4) mg/dL Estim Creat Clear Calc 108.9 Estimated GFR > 60 Random Glucose 106 (60-115) mg/dL Lactic Acid (0.5-2.0) mmol/L Calcium 9.3 (8.4-10.2) mg/dL Total Bilirubin 0.3 (0.0-1.0) mg/dL AST 19 (5-31) U/L ALT 12 (0-31) U/L Alkaline Phosphatase 73 (39-117) U/L Total Protein 7.1 (6.5-8.0) g/dL Albumin 4.4 (3.5-5.0) g/dL Beta HCG, Quant < 2 mIU/mL Urine Color Dark Yellow Urine Appearance Cloudy Urine pH 6.5 (5.0-9.0) Ur Specific [place] 1.020 (1.005-1.025) Urine Protein 30 (1+) H (Neg-Trace) mg/dL Urine Glucose (UA) Negative (Negative) mg/dL Urine Ketones Trace (Negative) mg/dL Urine Blood Small (1+) H (Negative) Urine Nitrite Positive H (Negative) Ur Leukocyte Esterase Moderate (2+) H (Negative) Urine RBC 3-5 H (0-2) /HPF Urine WBC 11-20 H (0-5) /HPF Ur Squamous Epith Cells 3-5 (0-2) /HPF Urine Bacteria 4+ (None Seen) Hyaline Casts 0-2 (0-2) /LPF 01/06/22 Range/Units 22:48 WBC (4.8-10.8) X10*3/uL RBC (4.20-5.50) X10*6/uL Hgb (12.0-16.0) g/dl Hct (37.0-47.0) % MCV (80.0-98.0) fL MCH (27.0-33.0) pg MCHC (31.0-35.0) g/dl RDW (11.0-16.0) % Plt Count (160-400) X10*3/uL MPV (9.4-12.3) fL Absolute Nucleated RBC (0.0-0.012) X10*3/uL Nucleated RBC % (auto) (0.0-0.2) /100WBC Sodium (135-145) mmol/L Potassium (3.3-5.1) mmol/L Chloride (96-108) mmol/L Carbon Dioxide (22-29) mmol/L Anion Gap (12-20) BUN (9-16) mg/dL Creatinine (0.5-1.4) mg/dL Estim Creat Clear Calc Estimated GFR Random Glucose (60-115) mg/dL Lactic Acid 0.7 (0.5-2.0) mmol/L Calcium (8.4-10.2) mg/dL Total Bilirubin (0.0-1.0) mg/dL AST (5-31) U/L ALT (0-31) U/L Alkaline Phosphatase (39-117) U/L Total Protein (6.5-8.0) g/dL Albumin (3.5-5.0) g/dL Beta HCG, Quant mIU/mL Urine Color Urine Appearance Urine pH (5.0-9.0) Ur Specific [place] (1.005-1.025) Urine Protein (Neg-Trace) mg/dL Urine Glucose (UA) (Negative) mg/dL Urine Ketones (Negative) mg/dL Urine Blood (Negative) Urine Nitrite (Negative) Ur Leukocyte Esterase (Negative) Urine RBC (0-2) /HPF Urine WBC (0-5) /HPF Ur Squamous Epith Cells (0-2) /HPF Urine Bacteria (None Seen) Hyaline Casts (0-2) /LPF <MARIA ESTHER Walters - Last Filed: 01/07/22 01:09> Critical Care Time Critical Care Time Critical Care Time: No <MARIA ESTHER Walters - Last Filed: 01/07/22 01:09> Discharge Plan Discharge Clinical Impression: UTI (urinary tract infection), Acute flank pain, Head lump <Glenn Fields MD - Last Filed: 01/06/22 19:13> Patient Disposition: Home, Self-Care <Glenn Fields MD - Last Filed: 01/06/22 19:13> Instructions: Urinary Tract Infection in Women (ED), Flank Pain (ED) <Glenn Fields MD - Last Filed: 01/06/22 19:13> Additional Instructions: Take your medications as prescribed. If you were prescribed antibiotics today, it is important that you take your medication to their entirety, do not skip any doses, do not finish them early. Follow-up with your primary care provider this week. Follow-up with Nephrology a pain worsens. Return to the emergency department with new or worsening symptoms. Such as fevers, chills, chest pain, shortness of breath, nausea, vomiting, dizziness, headache, vision changes, lethargy In case of emergency call 911 Levofloxacin has been sent to her pharmacy, this antibiotic belongs to the fluoroquinolone family 1 of the warnings on this antibiotic is tendon rupture abuse experience any joint pain or pain around any tendons please seek medical attention. Please to not participate in any physical activity for 2-3 weeks or until medically cleared. If lump on head changes in size, it starts hurting or you notice it is squishy, please return to the emergency department CT/CT abdomen pelvis w IV con IMPRESSION: A cause for the patient's flank pain has not been found. No renal abnormalities are seen and there is no CT evidence to suggest pyelonephritis. Incidental note made of mild hepatomegaly and a moderate stool burden in the colon and other findings described above. ? Fleischner guidelines were followed. <Glenn Fields MD - Last Filed: 01/06/22 19:13> Prescriptions: New levofloxacin 750 mg tablet 750 mg PO DAILY 7 Days Qty: 7 0RF No Action clindamycin HCl 300 mg capsule 300 mg PO Q6H Qty: 40 0RF <Glenn Fields MD - Last Filed: 01/06/22 19:13> Referrals: Physician,Nonstaff [Primary Care Provider] - [address] [facility] [Provider Group] - 2 days <Glenn Fields MD - Last Filed: 01/06/22 19:13> Stand Alone Forms: Work/School Release <Glenn Fields MD - Last Filed: 01/06/22 19:13>
[2022-01-06 19:23] LABS: Appearance Urine Cloudy; Color Urine Dark Yellow; Glucose Urine UA Negative (Negative); Leukocyte Esterase Urine Moderate (2+) (Negative); Nitrite Urine Positive (Negative); PH 6.5 (5.0-9.0); UMIC TRIGGER UA YES; Urine Blood Small (1+) (Negative); Urine Ketones Trace mg/dL (Negative); Urine Protein 30 (1+) mg/dL (Neg-Trace)
[2022-01-06 19:27] LABS: Hematocrit 39.2 % (37.0-47.0); Hemoglobin 13.3 g/dl (12.0-16.0); Mean Corpuscular HGB Conc 33.9 g/dl (31.0-35.0); Mean Corpuscular Volume 88.3 fL (80.0-98.0); Mean Platelet Volume 8.6 fL (9.4-12.3); Platelet Count 362 X10*3/uL (160-400); Red Blood Count 4.44 X10*6/uL (4.20-5.50); Red Cell Distribution Width 13.1 % (11.0-16.0); White Blood Count 7.3 X10*3/uL (4.8-10.8)
[2022-01-06 19:40] LABS: Bacteria Urine 4+ (None Seen); Hyaline Casts Urine 0-2 /LPF (0-2)
[2022-01-06 19:47] LABS: Alanine Aminotransferase 12 U/L (0-31); Albumin Level 4.4 g/dL (3.5-5.0); Alkaline Phosphatase 73 U/L (39-117); Anion Gap 13 (12-20); Aspartate Amino Transferase 19 U/L (5-31); Bilirubin Total 0.3 mg/dL (0.0-1.0); Blood Urea Nitrogen 9 mg/dL (9-16); Calcium 9.3 mg/dL (8.4-10.2); Carbon Dioxide 27 mmol/L (22-29); Chloride 105 mmol/L (96-108); Creatinine Clr Calc Pharmacy 108.9; Estimated Glomerular Filt Rate > 60; Glucose Random 106 mg/dL (60-115); Potassium 3.8 mmol/L (3.3-5.1); Sodium 141 mmol/L (135-145); Total Protein 7.1 g/dL (6.5-8.0)
[2022-01-06 21:45] LABS: HCG Quantitative < 2 mIU/mL
[2022-01-06 22:00] VITALS: BP 110/76; PULSE 60; TEMP 36.5; O2SAT 95
--- NOTE | 2022-01-06 22:55 | PC.NURSE ---
Pt stated to staff, I am usually a hard stick . This RN attempt to feel for a vein but did not attempt IV. This RN then attempted to gain IV access with US guidance. Able to draw labs from the line inserted with US guidance but the IV infiltrated after flushing the line. This RN will ask charge nurse to attempt an IV and then refer to provider if necessary.
[2022-01-06 23:03] LABS: Lactic Acid 0.7 mmol/L (0.5-2.0)
[2022-01-07] MEDS: iohexoL 350 MG/ML 100 ML INFUS..BTL 85 ML IV (00:32)
[2022-01-07] MEDS: cefTRIAXone sodium 1 GM in 0.9 % Sodium Chloride 50 ML IV (00:48)
== END 2022-01-07 02:35 | disposition home or self-care (01) ==
PROVIDERS: Physician Assistant; Emergency Provider Emergency Medicine
DX: R10.31 Right lower quadrant pain (principal); R30.0 Dysuria; Z79.899 Other long term (current) drug therapy
CPT/HCPCS: 36415; 74177; 80053; 81001; 83605; 84702; 85027; 87040; 96374; 99284; J0696; Q9967

== ENCOUNTER 2022-03-09 11:15 | Emergency (ER) | payer OTHER, SELFPAY ==
[2022-03-09 11:21] VITALS: BP 129/97; PULSE 125; RESP 16; TEMP 37.1; O2SAT 98; BMI 25.8
--- NOTE | 2022-03-09 11:24 | ED_ITS ---
HPI - General Adult General Chief complaint: Skin/Abscess/Foreign Body Stated complaint: Abscess on neck Time Seen by Provider: 03/09/22 11:36 Related Data Previous Rx's Medication Instructions Recorded clindamycin HCl 300 mg capsule 300 mg PO Q6H #40 caps 04/10/21 levofloxacin 750 mg tablet 750 mg PO DAILY 7 days #7 tabs 01/07/22 Allergies Allergy/AdvReac Type Severity Reaction Status Date / Time No Known Allergies Allergy Verified 04/10/21 16:52 [No Known Allergies*] [facility] Past Medical History Medical History Asthma Hypothyroid Polysubstance (including opioids) dependence with physiol dependence Social History Social History Alcohol intake: current Alcohol intake frequency: a few times a week Substance Use Type: Crack/Cocaine, Heroin and Opiates Advance Directives: No Advance Directives Information Provided: Yes Physical Exam ED Vital Signs: Vital Signs - 24 hr 03/09/22 11:21 Temperature 98.7 F Pulse Rate 125 H Respiratory Rate 16 Blood Pressure 129/97 H Pulse Oximetry 98 Oxygen Delivery Method Room Air BMI result Body Mass Index 25.8 Course Course Course Narrative: Rapid medical exam - 31 yo female with history of IVDA (currently using 2-3 bundles per day) presenting with a large abscess on the front midline area of her neck that 1st started 2 weeks ago but acutely got worse about 3 days ago. Swollen to the point she feels SOB and has a hard time swallowing. Needs to go to main ER now - Labs and CT with contrast ordered. Last used intranasal heroin this morning. Stopped injecting 3 weeks ago but did inject in the neck. Reevaluation(s) Reevaluation #1: Patient went outside to smoke a cigarette and said she would come right back. She was seen by security walking off hospital campus. I called the patient directly on her cell phone and explained the importance that she come back for further evaluation and treatment of a potentially life threatening infection in her neck. She said she is taking care of some things and then will be back as soon as she can. Discharge Plan Discharge Clinical Impression: Abscess of neck Patient Disposition: Elopement Prescriptions: No Action levofloxacin 750 mg tablet 750 mg PO DAILY 7 Days Qty: 7 0RF clindamycin HCl 300 mg capsule 300 mg PO Q6H Qty: 40 0RF Interventions: ED Discharge Assessment Last Done: 03/09/22 12:08 Discharge Date/Time: 03/09/22 12:08
== END 2022-03-09 12:08 | disposition left against medical advice (07) ==
PROVIDERS: Emergency Provider Emergency Medicine; PCP Family Medicine
DX: L02.11 Cutaneous abscess of neck (principal); F11.20 Opioid dependence, uncomplicated; F19.20 Other psychoactive substance dependence, uncomplicated; F17.210 Nicotine dependence, cigarettes, uncomplicated
CPT/HCPCS: 99282

== ENCOUNTER 2022-03-10 11:25 | Emergency (ER) | payer OTHER, SELFPAY ==
--- NOTE | ~2022-03-10 | XR_ITS ---
EXAMINATION: XR CHEST CLINICAL INFORMATION: Cough. COMPARISON: None TECHNIQUE: Frontal view of the chest was obtained. FINDINGS: No significant abnormality is noted involving the heart, lungs, mediastinum, bony thorax or soft tissues. XR/XR chest 1V IMPRESSION: No acute cardiopulmonary process.
--- NOTE | ~2022-03-10 | CT_ITS ---
CT SOFT TISSUE NECK WITH IV CONTRAST CLINICAL INFORMATION: Central neck abscess COMPARISON: Cervical spine CT 08/27/2021. TECHNIQUE: Following the intravenous administration of 60 mL of Omnipaque 350 intravenous contrast, helical imaging was performed in the axial plane with generation of coronal and sagittal reformatted images. This CT examination was performed using dose optimization techniques as appropriate, variously including the following: *Automated exposure control *Adjustment of mA and/or kV according to patient size (this includes techniques or standardized protocols for targeted exams where dose is matched to indication/reason for exam; i.e. extremities or head) *Use of iterative reconstruction technique FINDINGS: There is a large peripherally enhancing fluid collection within the central infrahyoid neck measuring up to 7.5 cm AP by 5.3 cm TV by 6 cm CC that is most suggestive of an abscess with surrounding cellulitis. The abscess extends from the ventral midline subcutaneous soft tissues deep to the thyroid strap musculature along the anterior margin of the lower right and left thyroid lobe extending inferiorly towards the thoracic inlet. There is stranding and edema within the upper mediastinum concerning for adjacent mediastinitis. Orbital soft tissues, the parotid glands, and the submandibular glands are unremarkable. There are some enlarged lymph nodes along the right jugular chain, most likely reactive. No retropharyngeal fluid collections. Cervical arterial vasculature remains patent and the internal jugular veins remain patent. No acute nor suspicious osseous findings are appreciated. No bony erosive changes. There is mild mucosal thickening within the maxillary sinuses bilaterally. Mastoid air cells remain well-aerated. TMJs are unremarkable. Imaged upper lungs are clear. Partially imaged intracranial compartment is unremarkable. CT/CT soft tissue neck w IV con IMPRESSION: - There is a large peripherally enhancing fluid collection within the central infrahyoid neck measuring up to 7.5 cm AP by 5.3 cm TV by 6 cm CC that is most suggestive of an abscess with surrounding cellulitis. The abscess extends from the ventral midline subcutaneous soft tissues deep to the thyroid strap musculature along the anterior margin of the lower right and left thyroid lobe extending inferiorly towards the thoracic inlet. The abscess results in dorsal mass effect on the trachea within the infrahyoid neck. - There is stranding and edema within the upper mediastinum concerning for adjacent mediastinitis.
[2022-03-10 11:38] VITALS: BP 155/96; PULSE 118; RESP 14; TEMP 36.8; O2SAT 96; BMI 25.6
--- NOTE | 2022-03-10 11:45 | ED_ITS ---
HPI - General Adult General Chief complaint: Skin/Abscess/Foreign Body <MARIA ESTHER Tenorio - Last Filed: 03/10/22 16:56> Stated complaint: Throat abscess <MARIA ESTHER Tenorio - Last Filed: 03/10/22 16:56> Time Seen by Provider: 03/10/22 12:03 <MARIA ESTHER Tenorio - Last Filed: 03/10/22 16:56> Source: patient <Karoaristeo Garcia CARLOZ Ruiz - Last Filed: 03/10/22 18:38> Mode of arrival: ambulatory <Karo Radha Ruiz CNP - Last Filed: 03/10/22 18:38> Limitations: no limitations <Karo Ruiz CNP - Last Filed: 03/10/22 18:38> History of Present Illness HPI narrative: Patient is a 31-year-old female who presents to emergency department for evaluation of an abscess to the front of her neck. She states about 2 weeks ago she was having stiffness to this area of the neck. Five days ago she began developing redness and swelling. Has associated shortness of breath, difficulty swallowing. She came to the emergency department yesterday for evaluation, but ultimately eloped from triage. She does state that approximately 3 weeks ago she injected cocaine into this area of her neck. She states she has not used IV fentanyl for approximately 1 month. Denies any IV drug usage over the past couple of weeks. Intranasal heroin earlier today. <Karo Lovee CARLOZ Ruiz - Last Filed: 03/10/22 18:38> Related Data Home medications: Previous Rx's Medication Instructions Recorded clindamycin HCl 300 mg capsule 300 mg PO Q6H #40 caps 04/10/21 levofloxacin 750 mg tablet 750 mg PO DAILY 7 days #7 tabs 01/07/22 <MARIA ESTHER Tenorio - Last Filed: 03/10/22 16:56> Allergies/adverse reactions: Allergies Allergy/AdvReac Type Severity Reaction Status Date / Time No Known Allergies Allergy Verified 04/10/21 16:52 [No Known Allergies*] <MARIA ESTHER Tenorio Last Filed: 03/10/22 16:56> Review of Systems Review of Systems: Constitutional: No weight loss. No fever. Positive chills. No weakness. No fatigue. Eye: No swelling. No redness. ENT: Positive sore throat. No rhinorrhea. No nasal congestion. No sore throat. Positive difficulty swallowing. Skin: No rash. No itching. Cardiovascular: No chest pain. No chest pressure. No palpitations. No pedal edema. Respiratory: Positive shortness of breath. No cough. No sputum production. Gastrointestinal: No anorexia. No nausea. No vomiting. No diarrhea. No abdominal pain. No blood in stool. Genitourinary: No burning micturition. No urinary frequency. No incontinence. Neurologic: No headache. No dizziness. No pre-syncope/ syncope. No unilateral w eakness. Musculoskeletal: No muscle pain. No back pain. No joint pain. No stiffness. Hematologic: No bleeding. No bruising. Lymphatics: No enlarged lymph nodes. Psychiatric:No depression. No anxiety. <Karo Ruiz CNP - Last Filed: 03/10/22 18:38> Yes all other systems are reviewed and are negative <Karo Ruiz CNP - Last Filed: 03/10/22 18:38> [facility] Past Medical History Attestation statement: The following information was validated with the patient. <Karo Ruiz CNP - Last Filed: 03/10/22 18:38> Source: old records reviewed <Karo Ruiz CNP - Last Filed: 03/10/22 18:38> Medical History: Medical History Asthma Hypothyroid Polysubstance (including opioids) dependence with physiol dependence <MARIA ESTHER Tenorio - Last Filed: 03/10/22 16:56> Social History Social History: Social History Alcohol intake: current Alcohol intake frequency: a few times a week Smoked in Last 30 Days: Yes Use of substances other than those prescribed or required for medical reasons: Yes Substance Use Type: Crack/Cocaine, Heroin and Opiates Advance Directives: No Advance Directives Information Provided: Yes <MARIA ESTHER Tenorio - Last Filed: 03/10/22 16:56> Physical Exam ED Vital Signs: Vital Signs - 24 hr 03/10/22 11:38 03/10/22 14:38 Temperature 98.2 F 98.4 F Pulse Rate 118 H 86 Respiratory Rate 14 12 Blood Pressure 155/96 H 104/73 Pulse Oximetry 96 98 Oxygen Delivery Method Room Air Room Air BMI result Body Mass Index 25.6 <MARIA ESTHER Tenorio - Last Filed: 03/10/22 16:56> Vital Signs - 24 hr 03/10/22 11:38 03/10/22 14:38 Temperature 98.2 F 98.4 F Pulse Rate 118 H 86 Respiratory Rate 14 12 Blood Pressure 155/96 H 104/73 Pulse Oximetry 96 98 Oxygen Delivery Method Room Air Room Air BMI result Body Mass Index 25.6 <Karo Ruiz CNP - Last Filed: 03/10/22 18:38> Vital Signs - 24 hr 03/10/22 11:38 03/10/22 14:38 Temperature 98.2 F 98.4 F Pulse Rate 118 H 86 Respiratory Rate 14 12 Blood Pressure 155/96 H 104/73 Pulse Oximetry 96 98 Oxygen Delivery Method Room Air Room Air BMI result Body Mass Index 25.6 <MARIA ESTHER Alexander - Last Filed: 03/11/22 14:54> Appearance: Alert.?Oriented to person, place and time. No acute distress.?Normal affect. Eyes: Pupils equal, round and reactive to light.? ENT: Pharynx normal.?? Neck: ?? CVS: Heart sounds normal. Normal heart rate and rhythm.? Pulses normal.?? Respiratory: No respiratory distress.? Lung sounds clear to auscultation bilaterally?? Abdomen: Soft and non-tender. Normoactive bowel sounds. Skin: Skin warm and dry.? Normal skin color.? Extremities: No lower extremity edema.? Neuro: Moves all extremities spontaneously. Sensation intact bilaterally. CN II- XII intact. No focal neuro deficits. Ambulates with normal steady gait. <Karo Ruiz CNP - Last Filed: 03/10/22 18:38> Course Course Course Narrative: RME - 31 yo female with history of polystustance abuse, using 2-3 bundles per day and injecting into the neck presents with worsening midline neck abscess for the last several days. Seen here yesterday and ended up leaving AMA. Exam today with worsening central abscess, limited ROM of the neck. Airway patent at this time. Brought back to treatment room - labs, CT, IV abx ordered. aware <MARIA ESTHER Tenorio - Last Filed: 03/10/22 16:56> Reevaluation(s) Reevaluation #1: CBC reveals leukocytosis 13.7 with left shift, no anemia. CMP is unremarkable. CRP elevated 6.38/ ESR elevated at 49. Toxicology is positive for opiates, fentanyl, benzodiazepines, and cocaine. Urinalysis with 1+ leukocyte esterase, wbc's, 4+ urine bacteria, there is also squamous epithelial cells present. <Karo Ruiz CNP - Last Filed: 03/10/22 18:38> Time: 13:57 <Karo Ruiz CNP - Last Filed: 03/10/22 18:38> Reevaluation #2: Received call from Radiology regarding 8 cm abscess with surrounding cellulitis, extends deep into the soft tissues and thyroid musculature, stranding edema within the upper mediastinum concerning for adjacent mediastinitis. Will consult with thoracic surgery <Karo Ruiz CNP - Last Filed: 03/10/22 18:38> Time: 14:45 <Karo Ruiz CNP - Last Filed: 03/10/22 18:38> Reevaluation #3: Consult of with thoracic surgery transformation lead; Franklin De La Garza/ Dr. Snow, recommendation for transfer to [facility] for further management and treatment were ENT coverage is available. At this time [facility] is closed to non-emergent transfer. <Karo Ruiz CNP - Last Filed: 03/10/22 18:38> Time: 15:29 <Karo Ruiz CNP - Last Filed: 03/10/22 18:38> Additional Reevaluation(s): 16:15 - patient was accepted for transfer to [place]. I had at length discussion with patient about this. At first she was agreeable. However at this time she states that she cannot be transferred to [place]. Patient with multiple reasons as to why she declines transfer. We discussed that this is lif e-threatening, highly encouraged transfer to have IV antibiotics/ appropriate drainage she continues to decline transfer in a advised that she would be leaving against medical advice, she is conscious alert and oriented x4, able to make decisions, new distress at this time. The she states that she will return when she is able. <Karo Ruiz CNP - Last Filed: 03/10/22 18:38> 16:15 - patient was accepted for transfer to [place]. I had at length discussion with patient about this. At first she was agreeable. However at this time she states that she cannot be transferred to [place]. Patient with multiple reasons as to why she declines transfer. We discussed that this is life-threatening, highly encouraged transfer to have IV antibiotics/ appropriate drainage she continues to decline transfer in a advised that she would be leaving against medical advice, she is conscious alert and oriented x4, able to make decisions, new distress at this time. The she states that she will return when she is able. 03/11/22--1451-- blood cultures 1 of 2 sets grew Gram-positive cocci in clusters. Urine culture grew Gram-negative rods greater than 100,000. Called and spoke with patient, states she is currently at [facility] about to be admitted to their facility. Made aware of results, recommended they have [facility] request our records. Results were discussed with patient including severity and need for IV antibiotics <MARIA ESTHER Alexander - Last Filed: 03/11/22 14:54> Medications Administered Discontinued Medications Generic Name Dose Route Start Last Admin Trade Name Freq PRN Reason Stop Dose Admin Piperacillin Sod/Tazobactam 100 mls @ 200 mls/hr 03/10/22 11:41 03/10/22 14:11 Sod 4.5 gm/ Sodium Chloride IV 03/10/22 12:10 Infused ONCE ONE Infusion Vancomycin HCl 1,000 mg/ 535 mls @ 267.5 mls/hr 03/10/22 11:50 03/10/22 14:10 Vancomycin HCl 750 mg/ Sodium IV 03/10/22 13:49 267.5 mls/hr Chloride ONCE ONE Administration Iohexol 100 ml 03/10/22 14:07 03/10/22 14:08 Iohexol 350 Mg/Ml 100 Ml Infus..Btl IV 03/10/22 14:08 60 ml ONCE ONE Administration <MARIA ESTHER Tenorio - Last Filed: 03/10/22 16:56> Medications Administered Discontinued Medications Generic Name Dose Route Start Last Admin Trade Name Freq PRN Reason Stop Dose Admin Piperacillin Sod/Tazobactam 100 mls @ 200 mls/hr 03/10/22 11:41 03/10/22 14:11 Sod 4.5 gm/ Sodium Chloride IV 03/10/22 12:10 Infused ONCE ONE Infusion Vancomycin HCl 1,000 mg/ 535 mls @ 267.5 mls/hr 03/10/22 11:50 03/10/22 14:10 Vancomycin HCl 750 mg/ Sodium IV 03/10/22 13:49 267.5 mls/hr Chloride ONCE ONE Administration Iohexol 100 ml 03/10/22 14:07 03/10/22 14:08 Iohexol 350 Mg/Ml 100 Ml Infus..Btl IV 03/10/22 14:08 60 ml ONCE ONE Administration <Karo Ruiz CNP - Last Filed: 03/10/22 18:38> Medications Administered Discontinued Medications Generic Name Dose Route Start Last Admin Trade Name Freq PRN Reason Stop Dose Admin Piperacillin Sod/Tazobactam 100 mls @ 200 mls/hr 03/10/22 11:41 03/10/22 14:11 Sod 4.5 gm/ Sodium Chloride IV 03/10/22 12:10 Infused ONCE ONE Infusion Vancomycin HCl 1,000 mg/ 535 mls @ 267.5 mls/hr 03/10/22 11:50 03/10/22 14:10 Vancomycin HCl 750 mg/ Sodium IV 03/10/22 13:49 267.5 mls/hr Chloride ONCE ONE Administration Iohexol 100 ml 03/10/22 14:07 03/10/22 14:08 Iohexol 350 Mg/Ml 100 Ml Infus..Btl IV 03/10/22 14:08 60 ml ONCE ONE Administration <MARIA ESTHER Alexander - Last Filed: 03/11/22 14:54> Medical Decision Making Medical Decision Making MDM Narrative: Patient is a 31-year-old female with past medical history of asthma, hypothyroidism, polysubstance abuse who presents emergency department for evaluation of an abscess to the left anterior neck. She presents afebrile, without tachypnea or hypoxia, no apparent respiratory distress. She is tachycardic and hypertensive. With history of IV drug usage, concern at this time for bacteremia/sepsis. Will obtain CBC, see, drug abuse screen, ethanol level, ESR, CRP, lactic acid, blood cultures. Ordered IV vancomycin and Zosyn. Will obtain CT imaging of soft tissue neck for further evaluation. <Karo Garcia CARLOZ Ruiz - Last Filed: 03/10/22 18:38> Differential Diagnosis Differential Diagnoses: The differential diagnosis associated with the presentation includes <Karo Loveenrique Ruiz CNP - Last Filed: 03/10/22 18:38> Lab Data MDM Lab Attestation statement: I reviewed the patient's lab results. <Karoaristeo Ruiz CNP - Last Filed: 03/10/22 18:38> Result Diagrams: 03/10/22 12:52 03/10/22 12:52 <MARIA ESTHER Tenorio - Last Filed: 03/10/22 16:56> Labs: Lab Results 03/10/22 03/10/22 03/10/22 Range/Units 12:52 12:52 12:52 WBC 13.7 H (4.8-10.8) X10*3/uL RBC 4.41 (4.20-5.50) X10*6/uL Hgb 13.0 (12.0-16.0) g/dl Hct 39.4 (37.0-47.0) % MCV 89.3 (80.0-98.0) fL MCH 29.5 (27.0-33.0) pg MCHC 33.0 (31.0-35.0) g/dl RDW 13.2 (11.0-16.0) % Plt Count 448 H (160-400) X10*3/uL MPV 8.4 L (9.4-12.3) fL Immature Gran % (Auto) 0.4 (0.0-0.4) % Neut % (Auto) 81.0 H (45-73) % Lymph % (Auto) 14.0 L (20-40) % [place] % (Auto) 2.9 (2-11) % Eos % (Auto) 1.3 (0-4) % Baso % (Auto) 0.4 (0-2) % Lymph # (Auto) 1.9 (1.2-4.9) X10*3/uL [place] # (Auto) 0.4 (0.1-1.2) X10*3/uL Eos # (Auto) 0.2 (0.0-0.4) X10*3/uL Baso # (Auto) 0.1 (0.0-0.2) X10*3/uL Abs Immat Gran (auto) 0.06 H (0.00-0.03) X10*3/uL Absolute Neuts (auto) 11.1 H (2.0-8.3) x10*3/uL Absolute Nucleated RBC 0.000 (0.0-0.012) X10*3/uL Nucleated RBC % (auto) 0.0 (0.0-0.2) /100WBC ESR (0-20) MM/HR PT 13.2 H (10.0-13.1) SEC INR 1.1 (0.9-1.1) APTT 39.4 H (26.0-36.4) SEC Sodium 141 (135-145) mmol/L Potassium 3.9 (3.3-5.1) mmol/L Chloride 102 (96-108) mmol/L Carbon Dioxide 28 (22-29) mmol/L Anion Gap 15 (12-20) BUN 10 (9-16) mg/dL Creatinine 0.79 (0.5-1.4) mg/dL Estim Creat Clear Calc 99.3 Estimated GFR > 60 Random Glucose 94 (60-115) mg/dL Lactic Acid (0.5-2.0) mmol/L Calcium 9.0 (8.4-10.2) mg/dL Magnesium 1.9 (1.6-2.6) mg/dL Total Bilirubin 0.3 (0.0-1.0) mg/dL Direct Bilirubin < 0.2 (0.0-0.5) mg/dL AST 12 (5-31) U/L ALT 9 (0-31) U/L Alkaline Phosphatase 84 (39-117) U/L C-Reactive Protein 6.38 H (< or = 0.50) mg/dL Total Protein 6.8 (6.5-8.0) g/dL Albumin 3.7 (3.5-5.0) g/dL Urine Color Urine Appearance Urine pH (5.0-9.0) Ur Specific [place] (1.005-1.025) Urine Protein (Neg-Trace) mg/dL Urine Glucose (UA) (Negative) mg/dL Urine Ketones (Negative) mg/dL Urine Blood (Negative) Urine Nitrite (Negative) Ur Leukocyte Esterase (Negative) Urine RBC (0-2) /HPF Urine WBC (0-5) /HPF Ur Squamous Epith Cells (0-2) /HPF Urine Bacteria (None Seen) Hyaline Casts (0-2) /LPF Urine Test (NEGATIVE) Urine Opiates Screen (Not Detect) Urine Fentanyl Screen (Not Detect) Ur Barbiturates Screen (Not Detect) Ur Phencyclidine Scrn (Not Detect) Ur Amphetamines Screen (Not Detect) U Benzodiazepines Scrn (Not Detect) Urine Cocaine Screen (Not Detect) U Marijuana (THC) Screen (Not Detect) Ethyl Alcohol mg/dL COVID-19 ([facility]TE) (Negative) COVID-19 Clin Com 03/10/22 03/10/22 03/10/22 Range/Units 12:52 12:52 12:52 WBC (4.8-10.8) X10*3/uL RBC (4.20-5.50) X10*6/uL Hgb (12.0-16.0) g/dl Hct (37.0-47.0) % MCV (80.0-98.0) fL MCH (27.0-33.0) pg MCHC (31.0-35.0) g/dl RDW (11.0-16.0) % Plt Count (160-400) X10*3/uL MPV (9.4-12.3) fL Immature Gran % (Auto) (0.0-0.4) % Neut % (Auto) (45-73) % Lymph % (Auto) (20-40) % [place] % (Auto) (2-11) % Eos % (Auto) (0-4) % Baso % (Auto) (0-2) % Lymph # (Auto) (1.2-4.9) X10*3/uL [place] # (Auto) (0.1-1.2) X10*3/uL Eos # (Auto) (0.0-0.4) X10*3/uL Baso # (Auto) (0.0-0.2) X10*3/uL Abs Immat Gran (auto) (0.00-0.03) X10*3/uL Absolute Neuts (auto) (2.0-8.3) x10*3/uL Absolute Nucleated RBC (0.0-0.012) X10*3/uL Nucleated RBC % (auto) (0.0-0.2) /100WBC ESR 49 H (0-20) MM/HR PT (10.0-13.1) SEC INR (0.9-1.1) APTT (26.0-36.4) SEC Sodium (135-145) mmol/L Potassium (3.3-5.1) mmol/L Chloride (96-108) mmol/L Carbon Dioxide (22-29) mmol/L Anion Gap (12-20) BUN (9-16) mg/dL Creatinine (0.5-1.4) mg/dL Estim Creat Clear Calc Estimated GFR Random Glucose (60-115) mg/dL Lactic Acid 0.8 (0.5-2.0) mmol/L Calcium (8.4-10.2) mg/dL Magnesium (1.6-2.6) mg/dL Total Bilirubin (0.0-1.0) mg/dL Direct Bilirubin (0.0-0.5) mg/dL AST (5-31) U/L ALT (0-31) U/L Alkaline Phosphatase (39-117) U/L C-Reactive Protein (< or = 0.50) mg/dL Total Protein (6.5-8.0) g/dL Albumin (3.5-5.0) g/dL Urine Color Urine Appearance Urine pH (5.0-9.0) Ur Specific [place] (1.005-1.025) Urine Protein (Neg-Trace) mg/dL Urine Glucose (UA) (Negative) mg/dL Urine Ketones (Negative) mg/dL Urine Blood (Negative) Urine Nitrite (Negative) Ur Leukocyte Esterase (Negative) Urine RBC (0-2) /HPF Urine WBC (0-5) /HPF Ur Squamous Epith Cells (0-2) /HPF Urine Bacteria (None Seen) Hyaline Casts (0-2) /LPF Urine Test (NEGATIVE) Urine Opiates Screen (Not Detect) Urine Fentanyl Screen (Not Detect) Ur Barbiturates Screen (Not Detect) Ur Phencyclidine Scrn (Not Detect) Ur Amphetamines Screen (Not Detect) U Benzodiazepines Scrn (Not Detect) Urine Cocaine Screen (Not Detect) U Marijuana (THC) Screen (Not Detect) Ethyl Alcohol mg/dL COVID-19 ([facility]) Negative (Negative) COVID-19 Clin Com See Note 03/10/22 03/10/22 03/10/22 Range/Units 12:55 13:00 13:00 WBC (4.8-10.8) X10*3/uL RBC (4.20-5.50) X10*6/uL Hgb (12.0-16.0) g/dl Hct (37.0-47.0) % MCV (80.0-98.0) fL MCH (27.0-33.0) pg MCHC (31.0-35.0) g/dl RDW (11.0-16.0) % Plt Count (160-400) X10*3/uL MPV (9.4-12.3) fL Immature Gran % (Auto) (0.0-0.4) % Neut % (Auto) (45-73) % Lymph % (Auto) (20-40) % [place] % (Auto) (2-11) % Eos % (Auto) (0-4) % Baso % (Auto) (0-2) % Lymph # (Auto) (1.2-4.9) X10*3/uL [place] # (Auto) (0.1-1.2) X10*3/uL Eos # (Auto) (0.0-0.4) X10*3/uL Baso # (Auto) (0.0-0.2) X10*3/uL Abs Immat Gran (auto) (0.00-0.03) X10*3/uL Absolute Neuts (auto) (2.0-8.3) x10*3/uL Absolute Nucleated RBC (0.0-0.012) X10*3/uL Nucleated RBC % (auto) (0.0-0.2) /100WBC ESR (0-20) MM/HR PT (10.0-13.1) SEC INR (0.9-1.1) APTT (26.0-36.4) SEC Sodium (135-145) mmol/L Potassium (3.3-5.1) mmol/L Chloride (96-108) mmol/L Carbon Dioxide (22-29) mmol/L Anion Gap (12-20) BUN (9-16) mg/dL Creatinine (0.5-1.4) mg/dL Estim Creat Clear Calc Estimated GFR Random Glucose (60-115) mg/dL Lactic Acid (0.5-2.0) mmol/L Calcium (8.4-10.2) mg/dL Magnesium (1.6-2.6) mg/dL Total Bilirubin (0.0-1.0) mg/dL Direct Bilirubin (0.0-0.5) mg/dL AST (5-31) U/L ALT (0-31) U/L Alkaline Phosphatase (39-117) U/L C-Reactive Protein (< or = 0.50) mg/dL Total Protein (6.5-8.0) g/dL Albumin (3.5-5.0) g/dL Urine Color Yellow Urine Appearance Cloudy Urine pH 7.0 (5.0-9.0) Ur Specific [place] 1.020 (1.005-1.025) Urine Protein Negative (Neg-Trace) mg/dL Urine Glucose (UA) Negative (Negative) mg/dL Urine Ketones Negative (Negative) mg/dL Urine Blood Negative (Negative) Urine Nitrite Negative (Negative) Ur Leukocyte Esterase Small (1+) H (Negative) Urine RBC 0-2 (0-2) /HPF Urine WBC 6-10 H (0-5) /HPF Ur Squamous Epith Cells 3-5 (0-2) /HPF Urine Bacteria 4+ (None Seen) Hyaline Casts 0-2 (0-2) /LPF Urine Test NEGATIVE (NEGATIVE) Urine Opiates Screen (Not Detect) Urine Fentanyl Screen (Not Detect) Ur Barbiturates Screen (Not Detect) Ur Phencyclidine Scrn (Not Detect) Ur Amphetamines Screen (Not Detect) U Benzodiazepines Scrn (Not Detect) Urine Cocaine Screen (Not Detect) U Marijuana (THC) Screen (Not Detect) Ethyl Alcohol < 10 mg/dL COVID-19 ([facility]TE) (Negative) COVID-19 Clin Com 03/10/22 Range/Units 13:00 WBC (4.8-10.8) X10*3/uL RBC (4.20-5.50) X10*6/uL Hgb (12.0-16.0) g/dl Hct (37.0-47.0) % MCV (80.0-98.0) fL MCH (27.0-33.0) pg MCHC (31.0-35.0) g/dl RDW (11.0-16.0) % Plt Count (160-400) X10*3/uL MPV (9.4-12.3) fL Immature Gran % (Auto) (0.0-0.4) % Neut % (Auto) (45-73) % Lymph % (Auto) (20-40) % [place] % (Auto) (2-11) % Eos % (Auto) (0-4) % Baso % (Auto) (0-2) % Lymph # (Auto) (1.2-4.9) X10*3/uL [place] # (Auto) (0.1-1.2) X10*3/uL Eos # (Auto) (0.0-0.4) X10*3/uL Baso # (Auto) (0.0-0.2) X10*3/uL Abs Immat Gran (auto) (0.00-0.03) X10*3/uL Absolute Neuts (auto) (2.0-8.3) x10*3/uL Absolute Nucleated RBC (0.0-0.012) X10*3/uL Nucleated RBC % (auto) (0.0-0.2) /100WBC ESR (0-20) MM/HR PT (10.0-13.1) SEC INR (0.9-1.1) APTT (26.0-36.4) SEC Sodium (135-145) mmol/L Potassium (3.3-5.1) mmol/L Chloride (96-108) mmol/L Carbon Dioxide (22-29) mmol/L Anion Gap (12-20) BUN (9-16) mg/dL Creatinine (0.5-1.4) mg/dL Estim Creat Clear Calc Estimated GFR Random Glucose (60-115) mg/dL Lactic Acid (0.5-2.0) mmol/L Calcium (8.4-10.2) mg/dL Magnesium (1.6-2.6) mg/dL Total Bilirubin (0.0-1.0) mg/dL Direct Bilirubin (0.0-0.5) mg/dL AST (5-31) U/L ALT (0-31) U/L Alkaline Phosphatase (39-117) U/L C-Reactive Protein (< or = 0.50) mg/dL Total Protein (6.5-8.0) g/dL Albumin (3.5-5.0) g/dL Urine Color Urine Appearance Urine pH (5.0-9.0) Ur Specific [place] (1.005-1.025) Urine Protein (Neg-Trace) mg/dL Urine Glucose (UA) (Negative) mg/dL Urine Ketones (Negative) mg/dL Urine Blood (Negative) Urine Nitrite (Negative) Ur Leukocyte Esterase (Negative) Urine RBC (0-2) /HPF Urine WBC (0-5) /HPF Ur Squamous Epith Cells (0-2) /HPF Urine Bacteria (None Seen) Hyaline Casts (0-2) /LPF Urine Test (NEGATIVE) Urine Opiates Screen POSITIVE H (Not Detect) Urine Fentanyl Screen POSITIVE H (Not Detect) Ur Barbiturates Screen Not Detected (Not Detect) Ur Phencyclidine Scrn Not Detected (Not Detect) Ur Amphetamines Screen Not Detected (Not Detect) U Benzodiazepines Scrn POSITIVE H (Not Detect) Urine Cocaine Screen POSITIVE H (Not Detect) U Marijuana (THC) Screen Not Detected (Not Detect) Ethyl Alcohol mg/dL COVID-19 ([facility]TE) (Negative) COVID-19 Clin Com <MARIA ESTHER Tenorio - Last Filed: 03/10/22 16:56> Lab Results 03/10/22 03/10/22 03/10/22 Range/Units 12:52 12:52 12:52 WBC 13.7 H (4.8-10.8) X10*3/uL RBC 4.41 (4.20-5.50) X10*6/uL Hgb 13.0 (12.0-16.0) g/dl Hct 39.4 (37.0-47.0) % MCV 89.3 (80.0-98.0) fL MCH 29.5 (27.0-33.0) pg MCHC 33.0 (31.0-35.0) g/dl RDW 13.2 (11.0-16.0) % Plt Count 448 H (160-400) X10*3/uL MPV 8.4 L (9.4-12.3) fL Immature Gran % (Auto) 0.4 (0.0-0.4) % Neut % (Auto) 81.0 H (45-73) % Lymph % (Auto) 14.0 L (20-40) % [place] % (Auto) 2.9 (2-11) % Eos % (Auto) 1.3 (0-4) % Baso % (Auto) 0.4 (0-2) % Lymph # (Auto) 1.9 (1.2-4.9) X10*3/uL [place] # (Auto) 0.4 (0.1-1.2) X10*3/uL Eos # (Auto) 0.2 (0.0-0.4) X10*3/uL Baso # (Auto) 0.1 (0.0-0.2) X10*3/uL Abs Immat Gran (auto) 0.06 H (0.00-0.03) X10*3/uL Absolute Neuts (auto) 11.1 H (2.0-8.3) x10*3/uL Absolute Nucleated RBC 0.000 (0.0-0.012) X10*3/uL Nucleated RBC % (auto) 0.0 (0.0-0.2) /100WBC ESR (0-20) MM/HR PT 13.2 H (10.0-13.1) SEC INR 1.1 (0.9-1.1) APTT 39.4 H (26.0-36.4) SEC Sodium 141 (135-145) mmol/L Potassium 3.9 (3.3-5.1) mmol/L Chloride 102 (96-108) mmol/L Carbon Dioxide 28 (22-29) mmol/L Anion Gap 15 (12-20) BUN 10 (9-16) mg/dL Creatinine 0.79 (0.5-1.4) mg/dL Estim Creat Clear Calc 99.3 Estimated GFR > 60 Random Glucose 94 (60-115) mg/dL Lactic Acid (0.5-2.0) mmol/L Calcium 9.0 (8.4-10.2) mg/dL Magnesium 1.9 (1.6-2.6) mg/dL Total Bilirubin 0.3 (0.0-1.0) mg/dL Direct Bilirubin < 0.2 (0.0-0.5) mg/dL AST 12 (5-31) U/L ALT 9 (0-31) U/L Alkaline Phosphatase 84 (39-117) U/L C-Reactive Protein 6.38 H (< or = 0.50) mg/dL Total Protein 6.8 (6.5-8.0) g/dL Albumin 3.7 (3.5-5.0) g/dL Urine Color Urine Appearance Urine pH (5.0-9.0) Ur Specific [place] (1.005-1.025) Urine Protein (Neg-Trace) mg/dL Urine Glucose (UA) (Negative) mg/dL Urine Ketones (Negative) mg/dL Urine Blood (Negative) Urine Nitrite (Negative) Ur Leukocyte Esterase (Negative) Urine RBC (0-2) /HPF Urine WBC (0-5) /HPF Ur Squamous Epith Cells (0-2) /HPF Urine Bacteria (None Seen) Hyaline Casts (0-2) /LPF Urine Test (NEGATIVE) Urine Opiates Screen (Not Detect) Urine Fentanyl Screen (Not Detect) Ur Barbiturates Screen (Not Detect) Ur Phencyclidine Scrn (Not Detect) Ur Amphetamines Screen (Not Detect) U Benzodiazepines Scrn (Not Detect) Urine Cocaine Screen (Not Detect) U Marijuana (THC) Screen (Not Detect) Ethyl Alcohol mg/dL COVID-19 ([facility]TE) (Negative) COVID-19 Clin Com 03/10/22 03/10/22 03/10/22 Range/Units 12:52 12:52 12:52 WBC (4.8-10.8) X10*3/uL RBC (4.20-5.50) X10*6/uL Hgb (12.0-16.0) g/dl Hct (37.0-47.0) % MCV (80.0-98.0) fL MCH (27.0-33.0) pg MCHC (31.0-35.0) g/dl RDW (11.0-16.0) % Plt Count (160-400) X10*3/uL MPV (9.4-12.3) fL Immature Gran % (Auto) (0.0-0.4) % Neut % (Auto) (45-73) % Lymph % (Auto) (20-40) % [place] % (Auto) (2-11) % Eos % (Auto) (0-4) % Baso % (Auto) (0-2) % Lymph # (Auto) (1.2-4.9) X10*3/uL [place] # (Auto) (0.1-1.2) X10*3/uL Eos # (Auto) (0.0-0.4) X10*3/uL Baso # (Auto) (0.0-0.2) X10*3/uL Abs Immat Gran (auto) (0.00-0.03) X10*3/uL Absolute Neuts (auto) (2.0-8.3) x10*3/uL Absolute Nucleated RBC (0.0-0.012) X10*3/uL Nucleated RBC % (auto) (0.0-0.2) /100WBC ESR 49 H (0-20) MM/HR PT (10.0-13.1) SEC INR (0.9-1.1) APTT (26.0-36.4) SEC Sodium (135-145) mmol/L Potassium (3.3-5.1) mmol/L Chloride (96-108) mmol/L Carbon Dioxide (22-29) mmol/L Anion Gap (12-20) BUN (9-16) mg/dL Creatinine (0.5-1.4) mg/dL Estim Creat Clear Calc Estimated GFR Random Glucose (60-115) mg/dL Lactic Acid 0.8 (0.5-2.0) mmol/L Calcium (8.4-10.2) mg/dL Magnesium (1.6-2.6) mg/dL Total Bilirubin (0.0-1.0) mg/dL Direct Bilirubin (0.0-0.5) mg/dL AST (5-31) U/L ALT (0-31) U/L Alkaline Phosphatase (39-117) U/L C-Reactive Protein (< or = 0.50) mg/dL Total Protein (6.5-8.0) g/dL Albumin (3.5-5.0) g/dL Urine Color Urine Appearance Urine pH (5.0-9.0) Ur Specific [place] (1.005-1.025) Urine Protein (Neg-Trace) mg/dL Urine Glucose (UA) (Negative) mg/dL Urine Ketones (Negative) mg/dL Urine Blood (Negative) Urine Nitrite (Negative) Ur Leukocyte Esterase (Negative) Urine RBC (0-2) /HPF Urine WBC (0-5) /HPF Ur Squamous Epith Cells (0-2) /HPF Urine Bacteria (None Seen) Hyaline Casts (0-2) /LPF Urine Test (NEGATIVE) Urine Opiates Screen (Not Detect) Urine Fentanyl Screen (Not Detect) Ur Barbiturates Screen (Not Detect) Ur Phencyclidine Scrn (Not Detect) Ur Amphetamines Screen (Not Detect) U Benzodiazepines Scrn (Not Detect) Urine Cocaine Screen (Not Detect) U Marijuana (THC) Screen (Not Detect) Ethyl Alcohol mg/dL COVID-19 ([facility]) Negative (Negative) COVID-19 Clin Com See Note 03/10/22 03/10/22 03/10/22 Range/Units 12:55 13:00 13:00 WBC (4.8-10.8) X10*3/uL RBC (4.20-5.50) X10*6/uL Hgb (12.0-16.0) g/dl Hct (37.0-47.0) % MCV (80.0-98.0) fL MCH (27.0-33.0) pg MCHC (31.0-35.0) g/dl RDW (11.0-16.0) % Plt Count (160-400) X10*3/uL MPV (9.4-12.3) fL Immature Gran % (Auto) (0.0-0.4) % Neut % (Auto) (45-73) % Lymph % (Auto) (20-40) % [place] % (Auto) (2-11) % Eos % (Auto) (0-4) % Baso % (Auto) (0-2) % Lymph # (Auto) (1.2-4.9) X10*3/uL [place] # (Auto) (0.1-1.2) X10*3/uL Eos # (Auto) (0.0-0.4) X10*3/uL Baso # (Auto) (0.0-0.2) X10*3/uL Abs Immat Gran (auto) (0.00-0.03) X10*3/uL Absolute Neuts (auto) (2.0-8.3) x10*3/uL Absolute Nucleated RBC (0.0-0.012) X10*3/uL Nucleated RBC % (auto) (0.0-0.2) /100WBC ESR (0-20) MM/HR PT (10.0-13.1) SEC INR (0.9-1.1) APTT (26.0-36.4) SEC Sodium (135-145) mmol/L Potassium (3.3-5.1) mmol/L Chloride (96-108) mmol/L Carbon Dioxide (22-29) mmol/L Anion Gap (12-20) BUN (9-16) mg/dL Creatinine (0.5-1.4) mg/dL Estim Creat Clear Calc Estimated GFR Random Glucose (60-115) mg/dL Lactic Acid (0.5-2.0) mmol/L Calcium (8.4-10.2) mg/dL Magnesium (1.6-2.6) mg/dL Total Bilirubin (0.0-1.0) mg/dL Direct Bilirubin (0.0-0.5) mg/dL AST (5-31) U/L ALT (0-31) U/L Alkaline Phosphatase (39-117) U/L C-Reactive Protein (< or = 0.50) mg/dL Total Protein (6.5-8.0) g/dL Albumin (3.5-5.0) g/dL Urine Color Yellow Urine Appearance Cloudy Urine pH 7.0 (5.0-9.0) Ur Specific [place] 1.020 (1.005-1.025) Urine Protein Negative (Neg-Trace) mg/dL Urine Glucose (UA) Negative (Negative) mg/dL Urine Ketones Negative (Negative) mg/dL Urine Blood Negative (Negative) Urine Nitrite Negative (Negative) Ur Leukocyte Esterase Small (1+) H (Negative) Urine RBC 0-2 (0-2) /HPF Urine WBC 6-10 H (0-5) /HPF Ur Squamous Epith Cells 3-5 (0-2) /HPF Urine Bacteria 4+ (None Seen) Hyaline Casts 0-2 (0-2) /LPF Urine Test NEGATIVE (NEGATIVE) Urine Opiates Screen (Not Detect) Urine Fentanyl Screen (Not Detect) Ur Barbiturates Screen (Not Detect) Ur Phencyclidine Scrn (Not Detect) Ur Amphetamines Screen (Not Detect) U Benzodiazepines Scrn (Not Detect) Urine Cocaine Screen (Not Detect) U Marijuana (THC) Screen (Not Detect) Ethyl Alcohol < 10 mg/dL COVID-19 ([facility]) (Negative) COVID-19 Clin Com 03/10/22 Range/Units 13:00 WBC (4.8-10.8) X10*3/uL RBC (4.20-5.50) X10*6/uL Hgb (12.0-16.0) g/dl Hct (37.0-47.0) % MCV (80.0-98.0) fL MCH (27.0-33.0) pg MCHC (31.0-35.0) g/dl RDW (11.0-16.0) % Plt Count (160-400) X10*3/uL MPV (9.4-12.3) fL Immature Gran % (Auto) (0.0-0.4) % Neut % (Auto) (45-73) % Lymph % (Auto) (20-40) % [place] % (Auto) (2-11) % Eos % (Auto) (0-4) % Baso % (Auto) (0-2) % Lymph # (Auto) (1.2-4.9) X10*3/uL [place] # (Auto) (0.1-1.2) X10*3/uL Eos # (Auto) (0.0-0.4) X10*3/uL Baso # (Auto) (0.0-0.2) X10*3/uL Abs Immat Gran (auto) (0.00-0.03) X10*3/uL Absolute Neuts (auto) (2.0-8.3) x10*3/uL Absolute Nucleated RBC (0.0-0.012) X10*3/uL Nucleated RBC % (auto) (0.0-0.2) /100WBC ESR (0-20) MM/HR PT (10.0-13.1) SEC INR (0.9-1.1) APTT (26.0-36.4) SEC Sodium (135-145) mmol/L Potassium (3.3-5.1) mmol/L Chloride (96-108) mmol/L Carbon Dioxide (22-29) mmol/L Anion Gap (12-20) BUN (9-16) mg/dL Creatinine (0.5-1.4) mg/dL Estim Creat Clear Calc Estimated GFR Random Glucose (60-115) mg/dL Lactic Acid (0.5-2.0) mmol/L Calcium (8.4-10.2) mg/dL Magnesium (1.6-2.6) mg/dL Total Bilirubin (0.0-1.0) mg/dL Direct Bilirubin (0.0-0.5) mg/dL AST (5-31) U/L ALT (0-31) U/L Alkaline Phosphatase (39-117) U/L C-Reactive Protein (< or = 0.50) mg/dL Total Protein (6.5-8.0) g/dL Albumin (3.5-5.0) g/dL Urine Color Urine Appearance Urine pH (5.0-9.0) Ur Specific [place] (1.005-1.025) Urine Protein (Neg-Trace) mg/dL Urine Glucose (UA) (Negative) mg/dL Urine Ketones (Negative) mg/dL Urine Blood (Negative) Urine Nitrite (Negative) Ur Leukocyte Esterase (Negative) Urine RBC (0-2) /HPF Urine WBC (0-5) /HPF Ur Squamous Epith Cells (0-2) /HPF Urine Bacteria (None Seen) Hyaline Casts (0-2) /LPF Urine Test (NEGATIVE) Urine Opiates Screen POSITIVE H (Not Detect) Urine Fentanyl Screen POSITIVE H (Not Detect) Ur Barbiturates Screen Not Detected (Not Detect) Ur Phencyclidine Scrn Not Detected (Not Detect) Ur Amphetamines Screen Not Detected (Not Detect) U Benzodiazepines Scrn POSITIVE H (Not Detect) Urine Cocaine Screen POSITIVE H (Not Detect) U Marijuana (THC) Screen Not Detected (Not Detect) Ethyl Alcohol mg/dL COVID-19 ([facility]) (Negative) COVID-19 Clin Com <Karo Ruiz, FISCAL ACCOUNTANT - Last Filed: 03/10/22 18:38> Lab Results 03/10/22 03/10/22 03/10/22 Range/Units 12:52 12:52 12:52 WBC 13.7 H (4.8-10.8) X10*3/uL RBC 4.41 (4.20-5.50) X10*6/uL Hgb 13.0 (12.0-16.0) g/dl Hct 39.4 (37.0-47.0) % MCV 89.3 (80.0-98.0) fL MCH 29.5 (27.0-33.0) pg MCHC 33.0 (31.0-35.0) g/dl RDW 13.2 (11.0-16.0) % Plt Count 448 H (160-400) X10*3/uL MPV 8.4 L (9.4-12.3) fL Immature Gran % (Auto) 0.4 (0.0-0.4) % Neut % (Auto) 81.0 H (45-73) % Lymph % (Auto) 14.0 L (20-40) % [place] % (Auto) 2.9 (2-11) % Eos % (Auto) 1.3 (0-4) % Baso % (Auto) 0.4 (0-2) % Lymph # (Auto) 1.9 (1.2-4.9) X10*3/uL [place] # (Auto) 0.4 (0.1-1.2) X10*3/uL Eos # (Auto) 0.2 (0.0-0.4) X10*3/uL Baso # (Auto) 0.1 (0.0-0.2) X10*3/uL Abs Immat Gran (auto) 0.06 H (0.00-0.03) X10*3/uL Absolute Neuts (auto) 11.1 H (2.0-8.3) x10*3/uL Absolute Nucleated RBC 0.000 (0.0-0.012) X10*3/uL Nucleated RBC % (auto) 0.0 (0.0-0.2) /100WBC ESR (0-20) MM/HR PT 13.2 H (10.0-13.1) SEC INR 1.1 (0.9-1.1) APTT 39.4 H (26.0-36.4) SEC Sodium 141 (135-145) mmol/L Potassium 3.9 (3.3-5.1) mmol/L Chloride 102 (96-108) mmol/L Carbon Dioxide 28 (22-29) mmol/L Anion Gap 15 (12-20) BUN 10 (9-16) mg/dL Creatinine 0.79 (0.5-1.4) mg/dL Estim Creat Clear Calc 99.3 Estimated GFR > 60 Random Glucose 94 (60-115) mg/dL Lactic Acid (0.5-2.0) mmol/L Calcium 9.0 (8.4-10.2) mg/dL Magnesium 1.9 (1.6-2.6) mg/dL Total Bilirubin 0.3 (0.0-1.0) mg/dL Direct Bilirubin < 0.2 (0.0-0.5) mg/dL AST 12 (5-31) U/L ALT 9 (0-31) U/L Alkaline Phosphatase 84 (39-117) U/L C-Reactive Protein 6.38 H (< or = 0.50) mg/dL Total Protein 6.8 (6.5-8.0) g/dL Albumin 3.7 (3.5-5.0) g/dL Urine Color Urine Appearance Urine pH (5.0-9.0) Ur Specific [place] (1.005-1.025) Urine Protein (Neg-Trace) mg/dL Urine Glucose (UA) (Negative) mg/dL Urine Ketones (Negative) mg/dL Urine Blood (Negative) Urine Nitrite (Negative) Ur Leukocyte Esterase (Negative) Urine RBC (0-2) /HPF Urine WBC (0-5) /HPF Ur Squamous Epith Cells (0-2) /HPF Urine Bacteria (None Seen) Hyaline Casts (0-2) /LPF Urine Test (NEGATIVE) Urine Opiates Screen (Not Detect) Urine Fentanyl Screen (Not Detect) Ur Barbiturates Screen (Not Detect) Ur Phencyclidine Scrn (Not Detect) Ur Amphetamines Screen (Not Detect) U Benzodiazepines Scrn (Not Detect) Urine Cocaine Screen (Not Detect) U Marijuana (THC) Screen (Not Detect) Ethyl Alcohol mg/dL COVID-19 ([facility]) (Negative) COVID-19 Clin Com 03/10/22 03/10/22 03/10/22 Range/Units 12:52 12:52 12:52 WBC (4.8-10.8) X10*3/uL RBC (4.20-5.50) X10*6/uL Hgb (12.0-16.0) g/dl Hct (37.0-47.0) % MCV (80.0-98.0) fL MCH (27.0-33.0) pg MCHC (31.0-35.0) g/dl RDW (11.0-16.0) % Plt Count (160-400) X10*3/uL MPV (9.4-12.3) fL Immature Gran % (Auto) (0.0-0.4) % Neut % (Auto) (45-73) % Lymph % (Auto) (20-40) % [place] % (Auto) (2-11) % Eos % (Auto) (0-4) % Baso % (Auto) (0-2) % Lymph # (Auto) (1.2-4.9) X10*3/uL [place] # (Auto) (0.1-1.2) X10*3/uL Eos # (Auto) (0.0-0.4) X10*3/uL Baso # (Auto) (0.0-0.2) X10*3/uL Abs Immat Gran (auto) (0.00-0.03) X10*3/uL Absolute Neuts (auto) (2.0-8.3) x10*3/uL Absolute Nucleated RBC (0.0-0.012) X10*3/uL Nucleated RBC % (auto) (0.0-0.2) /100WBC ESR 49 H (0-20) MM/HR PT (10.0-13.1) SEC INR (0.9-1.1) APTT (26.0-36.4) SEC Sodium (135-145) mmol/L Potassium (3.3-5.1) mmol/L Chloride (96-108) mmol/L Carbon Dioxide (22-29) mmol/L Anion Gap (12-20) BUN (9-16) mg/dL Creatinine (0.5-1.4) mg/dL Estim Creat Clear Calc Estimated GFR Random Glucose (60-115) mg/dL Lactic Acid 0.8 (0.5-2.0) mmol/L Calcium (8.4-10.2) mg/dL Magnesium (1.6-2.6) mg/dL Total Bilirubin (0.0-1.0) mg/dL Direct Bilirubin (0.0-0.5) mg/dL AST (5-31) U/L ALT (0-31) U/L Alkaline Phosphatase (39-117) U/L C-Reactive Protein (< or = 0.50) mg/dL Total Protein (6.5-8.0) g/dL Albumin (3.5-5.0) g/dL Urine Color Urine Appearance Urine pH (5.0-9.0) Ur Specific [place] (1.005-1.025) Urine Protein (Neg-Trace) mg/dL Urine Glucose (UA) (Negative) mg/dL Urine Ketones (Negative) mg/dL Urine Blood (Negative) Urine Nitrite (Negative) Ur Leukocyte Esterase (Negative) Urine RBC (0-2) /HPF Urine WBC (0-5) /HPF Ur Squamous Epith Cells (0-2) /HPF Urine Bacteria (None Seen) Hyaline Casts (0-2) /LPF Urine Test (NEGATIVE) Urine Opiates Screen (Not Detect) Urine Fentanyl Screen (Not Detect) Ur Barbiturates Screen (Not Detect) Ur Phencyclidine Scrn (Not Detect) Ur Amphetamines Screen (Not Detect) U Benzodiazepines Scrn (Not Detect) Urine Cocaine Screen (Not Detect) U Marijuana (THC) Screen (Not Detect) Ethyl Alcohol mg/dL COVID-19 ([facility]) Negative (Negative) COVID-19 Clin Com See Note 03/10/22 03/10/22 03/10/22 Range/Units 12:55 13:00 13:00 WBC (4.8-10.8) X10*3/uL RBC (4.20-5.50) X10*6/uL Hgb (12.0-16.0) g/dl Hct (37.0-47.0) % MCV (80.0-98.0) fL MCH (27.0-33.0) pg MCHC (31.0-35.0) g/dl RDW (11.0-16.0) % Plt Count (160-400) X10*3/uL MPV (9.4-12.3) fL Immature Gran % (Auto) (0.0-0.4) % Neut % (Auto) (45-73) % Lymph % (Auto) (20-40) % [place] % (Auto) (2-11) % Eos % (Auto) (0-4) % Baso % (Auto) (0-2) % Lymph # (Auto) (1.2-4.9) X10*3/uL [place] # (Auto) (0.1-1.2) X10*3/uL Eos # (Auto) (0.0-0.4) X10*3/uL Baso # (Auto) (0.0-0.2) X10*3/uL Abs Immat Gran (auto) (0.00-0.03) X10*3/uL Absolute Neuts (auto) (2.0-8.3) x10*3/uL Absolute Nucleated RBC (0.0-0.012) X10*3/uL Nucleated RBC % (auto) (0.0-0.2) /100WBC ESR (0-20) MM/HR PT (10.0-13.1) SEC INR (0.9-1.1) APTT (26.0-36.4) SEC Sodium (135-145) mmol/L Potassium (3.3-5.1) mmol/L Chloride (96-108) mmol/L Carbon Dioxide (22-29) mmol/L Anion Gap (12-20) BUN (9-16) mg/dL Creatinine (0.5-1.4) mg/dL Estim Creat Clear Calc Estimated GFR Random Glucose (60-115) mg/dL Lactic Acid (0.5-2.0) mmol/L Calcium (8.4-10.2) mg/dL Magnesium (1.6-2.6) mg/dL Total Bilirubin (0.0-1.0) mg/dL Direct Bilirubin (0.0-0.5) mg/dL AST (5-31) U/L ALT (0-31) U/L Alkaline Phosphatase (39-117) U/L C-Reactive Protein (< or = 0.50) mg/dL Total Protein (6.5-8.0) g/dL Albumin (3.5-5.0) g/dL Urine Color Yellow Urine Appearance Cloudy Urine pH 7.0 (5.0-9.0) Ur Specific [place] 1.020 (1.005-1.025) Urine Protein Negative (Neg-Trace) mg/dL Urine Glucose (UA) Negative (Negative) mg/dL Urine Ketones Negative (Negative) mg/dL Urine Blood Negative (Negative) Urine Nitrite Negative (Negative) Ur Leukocyte Esterase Small (1+) H (Negative) Urine RBC 0-2 (0-2) /HPF Urine WBC 6-10 H (0-5) /HPF Ur Squamous Epith Cells 3-5 (0-2) /HPF Urine Bacteria 4+ (None Seen) Hyaline Casts 0-2 (0-2) /LPF Urine Test NEGATIVE (NEGATIVE) Urine Opiates Screen (Not Detect) Urine Fentanyl Screen (Not Detect) Ur Barbiturates Screen (Not Detect) Ur Phencyclidine Scrn (Not Detect) Ur Amphetamines Screen (Not Detect) U Benzodiazepines Scrn (Not Detect) Urine Cocaine Screen (Not Detect) U Marijuana (THC) Screen (Not Detect) Ethyl Alcohol < 10 mg/dL COVID-19 ([facility]) (Negative) COVID-19 Clin Com 03/10/22 Range/Units 13:00 WBC (4.8-10.8) X10*3/uL RBC (4.20-5.50) X10*6/uL Hgb (12.0-16.0) g/dl Hct (37.0-47.0) % MCV (80.0-98.0) fL MCH (27.0-33.0) pg MCHC (31.0-35.0) g/dl RDW (11.0-16.0) % Plt Count (160-400) X10*3/uL MPV (9.4-12.3) fL Immature Gran % (Auto) (0.0-0.4) % Neut % (Auto) (45-73) % Lymph % (Auto) (20-40) % [place] % (Auto) (2-11) % Eos % (Auto) (0-4) % Baso % (Auto) (0-2) % Lymph # (Auto) (1.2-4.9) X10*3/uL [place] # (Auto) (0.1-1.2) X10*3/uL Eos # (Auto) (0.0-0.4) X10*3/uL Baso # (Auto) (0.0-0.2) X10*3/uL Abs Immat Gran (auto) (0.00-0.03) X10*3/uL Absolute Neuts (auto) (2.0-8.3) x10*3/uL Absolute Nucleated RBC (0.0-0.012) X10*3/uL Nucleated RBC % (auto) (0.0-0.2) /100WBC ESR (0-20) MM/HR PT (10.0-13.1) SEC INR (0.9-1.1) APTT (26.0-36.4) SEC Sodium (135-145) mmol/L Potassium (3.3-5.1) mmol/L Chloride (96-108) mmol/L Carbon Dioxide (22-29) mmol/L Anion Gap (12-20) BUN (9-16) mg/dL Creatinine (0.5-1.4) mg/dL Estim Creat Clear Calc Estimated GFR Random Glucose (60-115) mg/dL Lactic Acid (0.5-2.0) mmol/L Calcium (8.4-10.2) mg/dL Magnesium (1.6-2.6) mg/dL Total Bilirubin (0.0-1.0) mg/dL Direct Bilirubin (0.0-0.5) mg/dL AST (5-31) U/L ALT (0-31) U/L Alkaline Phosphatase (39-117) U/L C-Reactive Protein (< or = 0.50) mg/dL Total Protein (6.5-8.0) g/dL Albumin (3.5-5.0) g/dL Urine Color Urine Appearance Urine pH (5.0-9.0) Ur Specific [place] (1.005-1.025) Urine Protein (Neg-Trace) mg/dL Urine Glucose (UA) (Negative) mg/dL Urine Ketones (Negative) mg/dL Urine Blood (Negative) Urine Nitrite (Negative) Ur Leukocyte Esterase (Negative) Urine RBC (0-2) /HPF Urine WBC (0-5) /HPF Ur Squamous Epith Cells (0-2) /HPF Urine Bacteria (None Seen) Hyaline Casts (0-2) /LPF Urine Test (NEGATIVE) Urine Opiates Screen POSITIVE H (Not Detect) Urine Fentanyl Screen POSITIVE H (Not Detect) Ur Barbiturates Screen Not Detected (Not Detect) Ur Phencyclidine Scrn Not Detected (Not Detect) Ur Amphetamines Screen Not Detected (Not Detect) U Benzodiazepines Scrn POSITIVE H (Not Detect) Urine Cocaine Screen POSITIVE H (Not Detect) U Marijuana (THC) Screen Not Detected (Not Detect) Ethyl Alcohol mg/dL COVID-19 ([facility]) (Negative) COVID-19 Clin Com <MARIA ESTHER Alexander - Last Filed: 03/11/22 14:54> Independent Interpretation I performed an independent interpretation of an: Plain X-Ray (Personally interpreted chest x-ray and agree with radiologist impression) <Karo Ruiz CNP - Last Filed: 03/10/22 18:38> Radiology Impression Discussion of test interpretation with radiology: I have reviewed the radiologist's reading. <Karo Ruiz CNP - Last Filed: 03/10/22 18:38> Radiologist Impression: XR/XR chest 1V IMPRESSION: No acute cardiopulmonary process. CT/CT soft tissue neck w IV con IMPRESSION: - There is a large peripherally enhancing fluid collection within the central infrahyoid neck measuring up to 7.5 cm AP by 5.3 cm TV by 6 cm CC that is most suggestive of an abscess with surrounding cellulitis. The abscess extends from the ventral midline subcutaneous soft tissues deep to the thyroid strap musculature along the anterior margin of the lower right and left thyroid lobe extending inferiorly towards the thoracic inlet. The abscess results in dorsal mass effect on the trachea within the infrahyoid neck. ? - There is stranding and edema within the upper mediastinum concerning for adjacent mediastinitis. <Karo Ruiz CNP - Last Filed: 03/10/22 18:38> Prescription Management I considered prescription management with: Antibiotic <Karo Radhaenrique Ruiz CNP - Last Filed: 03/10/22 18:38> Critical Care Time Critical Care Time Critical Care Time: Yes <Karo Radhaenrique Ruiz CNP - Last Filed: 03/10/22 18:38> Total Critical Care Time: 45 <Karo Radhaenrique Ruiz CNP - Last Filed: 03/10/22 18:38> Attestation: I personally attest to this critical care time spent taking care of the patient exclusive of all other billable procedures was approximately 45 minutes including initial evaluation of patient, ordering tests, x-ray interpretation, EKG interpretation, medical consultation, documentation, re-evaluation. <Karo Ruiz CNP - Last Filed: 03/10/22 18:38> Discharge Plan Discharge Clinical Impression: Abscess of skin or subcutaneous tissue, Acute mediastinitis <MARIA ESTHER Tenorio - Last Filed: 03/10/22 16:56> Patient Disposition: Left Against Medical Advice <MARIA ESTHER Tenorio - Last Filed: 03/10/22 16:56> Instructions: Abscess (ED) <MARIA ESTHER Tenorio - Last Filed: 03/10/22 16:56> Prescriptions: No Action levofloxacin 750 mg tablet 750 mg PO DAILY 7 Days Qty: 7 0RF clindamycin HCl 300 mg capsule 300 mg PO Q6H Qty: 40 0RF <MARIA ESTHER Tenorio - Last Filed: 03/10/22 16:56> Stand Alone Forms: Against Medical Advice <MARIA ESTHER Tenorio - Last Filed: 03/10/22 16:56> Interventions: ED Discharge Assessment Last Done: 03/10/22 17:09 <MARIA ESTHER Tenorio Last Filed: 03/10/22 16:56> Discharge Date/Time: 03/10/22 17:12 <MARIA ESTHER Tenorio - Last Filed: 03/10/22 16:56>
[2022-03-10 13:07] LABS: MANUAL DIFF FLAG NO
[2022-03-10 13:09] LABS: Basophils Absolute Auto 0.1 X10*3/uL (0.0-0.2); Basophils Percent Auto 0.4 % (0-2); Eosinophils Absolute Auto 0.2 X10*3/uL (0.0-0.4); Eosinophils Percent Auto 1.3 % (0-4); Hematocrit 39.4 % (37.0-47.0); Imm Gran Abs Auto 0.06 X10*3/uL (0.00-0.03); Imm Gran Pct Auto 0.4 % (0.0-0.4); Lymphocytes Absolute Auto 1.9 X10*3/uL (1.2-4.9); Mean Corpuscular Hemoglobin 29.5 pg (27.0-33.0); Mean Corpuscular Volume 89.3 fL (80.0-98.0); Mean Platelet Volume 8.4 fL (9.4-12.3); Monocytes Absolute Auto 0.4 X10*3/uL (0.1-1.2); Monocytes Percent Auto 2.9 % (2-11); Neutrophils Absolute Auto 11.1 x10*3/uL (2.0-8.3); Platelet Count 448 X10*3/uL (160-400); Red Blood Count 4.41 X10*6/uL (4.20-5.50); Red Cell Distribution Width 13.2 % (11.0-16.0); White Blood Count 13.7 X10*3/uL (4.8-10.8)
[2022-03-10 13:16] LABS: Appearance Urine Cloudy; Color Urine Yellow; Glucose Urine UA Negative (Negative); Leukocyte Esterase Urine Small (1+) (Negative); Nitrite Urine Negative (Negative); UMIC TRIGGER UACC YES; Urine Blood Negative (Negative); Urine Ketones Negative (Negative); Urine Protein Negative (Neg-Trace)
[2022-03-10 13:17] LABS: UPreg QC Valid YES; Urine Pregnancy NEGATIVE (NEGATIVE)
[2022-03-10 13:20] LABS: INTERNATIONAL NORM RATIO 1.1 (0.9-1.1); Prothrombin Time 13.2 SEC (10.0-13.1)
[2022-03-10] MEDS: Piperacillin Sodium/Tazobactam 4.5 GM in 0.9 % Sodium Chloride 100 ML IV (13:20)
[2022-03-10 13:21] LABS: Bacteria Urine 4+ (None Seen); Hyaline Casts Urine 0-2 /LPF (0-2); RBC Urine 0-2 /HPF (0-2); UACC Culture Trigger YES
[2022-03-10 13:22] LABS: Amphetamine Screen Urine Not Detected (Not Detect); Barbiturates, Urine Not Detected (Not Detect); Benzodiazepines Screen Urine POSITIVE (Not Detect); Cannabinoid Screen Urine Not Detected (Not Detect); Cocaine Screen Urine POSITIVE (Not Detect); Fentanyl, urine POSITIVE (Not Detect); Opiate Screen Urine POSITIVE (Not Detect); Phencyclidine Screen Urine Not Detected (Not Detect)
[2022-03-10 13:23] LABS: Partial Thromboplastin Time 39.4 SEC (26.0-36.4)
[2022-03-10 13:24] LABS: Lactic Acid 0.8 mmol/L (0.5-2.0)
[2022-03-10 13:29] LABS: Alanine Aminotransferase 9 U/L (0-31); Albumin Level 3.7 g/dL (3.5-5.0); Alkaline Phosphatase 84 U/L (39-117); Anion Gap 15 (12-20); Aspartate Amino Transferase 12 U/L (5-31); Bilirubin Direct < 0.2 mg/dL (0.0-0.5); Bilirubin Total 0.3 mg/dL (0.0-1.0); Blood Urea Nitrogen 10 mg/dL (9-16); C Reactive Protein 6.38 mg/dL (< or = 0.50); Carbon Dioxide 28 mmol/L (22-29); Chloride 102 mmol/L (96-108); Creatinine Clr Calc Pharmacy 99.3; Estimated Glomerular Filt Rate > 60; Glucose Random 94 mg/dL (60-115); Magnesium 1.9 mg/dL (1.6-2.6); Potassium 3.9 mmol/L (3.3-5.1); Sodium 141 mmol/L (135-145); Total Protein 6.8 g/dL (6.5-8.0)
[2022-03-10 13:32] LABS: Ethanol < 10 mg/dL
[2022-03-10 13:53] LABS: COVID-19 Test Negative (Negative); IDNOW Serial# 16C4AD1C
[2022-03-10 13:55] LABS: Erythrocyte Sedimentation Rate 49 MM/HR (0-20)
[2022-03-10] MEDS: iohexoL 350 MG/ML 100 ML INFUS..BTL IV (14:08)
[2022-03-10] MEDS: vancomycin HCL 1,000 MG, vancomycin HCL 750 MG in 0.9 % Sodium Chloride 500 ML 267.5 MG IV (14:10)
[2022-03-10 14:38] VITALS: BP 104/73; PULSE 86; RESP 12; TEMP 36.9; O2SAT 98
--- NOTE | 2022-03-10 15:23 | MHC.EDTECH ---
@ [phone] CALL PLACED TO [facility] PT TX LINE @ THE REQUEST OF MERE WALSH FOR POSSIBLE TX OF THIS PT MARIAN ANSWERS AND STATES THEY ARE OPEN FOR TRANSFERS OF STEMI, STROKE, OB, TRAUMA AND PEDI ONLY FLAKO MADE AWARE
--- NOTE | 2022-03-10 15:47 | MHC.EDTECH ---
@[phone] CALL PLACED TO [facility] @ [employer] ATTENDANT JULISSA WALSH REQUEST FOR POSSIBLE TX OF THIS PT MAURI ANSWERS AND ASKS IF ANY [facility] WERE CALLED FIRST, MADE HER AWARE THAT [facility] WAS. SHE SAID TO TRY A COUPLE OTHER [facility] TO SEE IF THEY WILL TAKE THIS PT, IF NO ONE IN [facility] WILL,TO PLEASE CALL THEM BACK FOR THIS PT. @[phone] CALL PLACED TO [facility] @ [employer] ATTENDANT JULISSA REQUEST FOR THIS PT RAYMON ANSWERS AND ASKS TO SPEAK WITH JULISSA COSTA TAKES OVER CALL RIGHT AWAY.
--- NOTE | 2022-03-10 15:59 | MHC.EDTECH ---
@[phone] CALL PLACED TO [facility] @ SERVER ASSISTANT FLAKO WALSH REQUEST AFTER BOTH [facility] AND [facility] DECLINED TRANSFER DUE TO [employer] ANSWERS, TAKES PT INFO THEN ASKS TO SPEAK WITH JULISSA COSTA TAKES OVER CALL RIGHT AWAY
--- NOTE | 2022-03-10 16:14 | MHC.EDTECH ---
@[phone] CALL RECEIVED FROM [place] OF THE [facility] LINE ASKING TO SPEAK WITH RADIATOR SPECIALIST FLAKO ARRIOLA TAKES OVER CALL RIGHT AWAY
--- NOTE | 2022-03-10 16:39 | P.CONGS_ITS ---
History of Present Illness Consult details Consult date: 03/10/22 Narrative: 31-year-old female here in the ER because of a painful mass on the anterior neck. She has a known IV drug abuse history. She apparently has had this swelling on her anterior neck for about 2 weeks but this has been worsening for the past few days. She was in the ER yesterday because of the same problem but had eloped. She came back today for the same complaints. She denies any fever or chills. She does admit to having used this area for IV drug abuse although I am uncertain if this is for skin popping. She denies any respiratory distress. She does state that she seems to have a little bit of discomfort with swallowing. Review of Systems Constitutional: Constitutional: Denies chills and Denies fever(s) Cardiovascular: Cardiovascular: Denies chest pain Respiratory: Respiratory: Denies no additional respiratory complaints and Denies cough Gastrointestinal: Gastrointestinal: Denies abdominal pain Genitourinary: Genitourinary: Reports no additional female genitourinary com plaints PMFSH Past Medical History Medical History Asthma Hypothyroid Polysubstance (including opioids) dependence with physiol dependence Social History Social History Alcohol intake: current Alcohol intake frequency: a few times a week Smoked in Last 30 Days: Yes Use of substances other than those prescribed or required for medical reasons: Yes Substance Use Type: Crack/Cocaine, Heroin and Opiates Advance Directives: No Advance Directives Information Provided: Yes Meds Allergies Allergy/AdvReac Type Severity Reaction Status Date / Time No Known Allergies Allergy Verified 04/10/21 16:52 [No Known Allergies*] Active Medications: Current Medications Pharmacy Consult (Consult Rx Vancomycin Dosing) 1 each MISCELLANE DAILY PRN PRN Reason: Consult order Physical Exam Vital Signs: Vital Signs: Last Vital Signs Temp 98.4 F 03/10/22 14:38 Pulse 86 03/10/22 14:38 Resp 12 03/10/22 14:38 BP 104/73 03/10/22 14:38 Pulse Ox 98 03/10/22 14:38 O2 Del Method 03/10/22 14:38 BMI result Body Mass Index 25.6 Const: Other: Drowsy after getting medications earlier General: no acute distress Neck: Other: Large tender mass on the anterior neck, with central fluctuance, some redness over there overlying skin, no discharge Resp: Effort & Inspection: normal respiratory effort Cardio: Rate: regular rate GI: Palpation (GI): Soft to palpation Results Labs 03/10/22 12:52 03/10/22 12:52 Labs: Abnormal lab results 03/10/22 03/10/22 03/10/22 Range/Units 12:52 12:52 12:52 WBC 13.7 H (4.8-10.8) X10*3/uL Plt Count 448 H (160-400) X10*3/uL MPV 8.4 L (9.4-12.3) fL Neut % (Auto) 81.0 H (45-73) % Lymph % (Auto) 14.0 L (20-40) % Abs Immat Gran (auto) 0.06 H (0.00-0.03) X10*3/uL Absolute Neuts (auto) 11.1 H (2.0-8.3) x10*3/uL ESR (0-20) MM/HR PT 13.2 H (10.0-13.1) SEC APTT 39.4 H (26.0-36.4) SEC C-Reactive Protein 6.38 H (< or = 0.50) mg/dL Ur Leukocyte Esterase (Negative) Urine WBC (0-5) /HPF Urine Opiates Screen (Not Detect) Urine Fentanyl Screen (Not Detect) U Benzodiazepines Scrn (Not Detect) Urine Cocaine Screen (Not Detect) 03/10/22 03/10/22 03/10/22 Range/Units 12:52 13:00 13:00 WBC (4.8-10.8) X10*3/uL Plt Count (160-400) X10*3/uL MPV (9.4-12.3) fL Neut % (Auto) (45-73) % Lymph % (Auto) (20-40) % Abs Immat Gran (auto) (0.00-0.03) X10*3/uL Absolute Neuts (auto) (2.0-8.3) x10*3/uL ESR 49 H (0-20) MM/HR PT (10.0-13.1) SEC APTT (26.0-36.4) SEC C-Reactive Protein (< or = 0.50) mg/dL Ur Leukocyte Esterase Small (1+) H (Negative) Urine WBC 6-10 H (0-5) /HPF Urine Opiates Screen POSITIVE H (Not Detect) Urine Fentanyl Screen POSITIVE H (Not Detect) U Benzodiazepines Scrn POSITIVE H (Not Detect) Urine Cocaine Screen POSITIVE H (Not Detect) Short CBC 03/10/22 Range/Units 12:52 WBC 13.7 H (4.8-10.8) X10*3/uL Hgb 13.0 (12.0-16.0) g/dl Hct 39.4 (37.0-47.0) % Plt Count 448 H (160-400) X10*3/uL BMP 03/10/22 12:52 Sodium 141 Potassium 3.9 Chloride 102 Carbon Dioxide 28 BUN 10 Creatinine 0.79 Calcium 9.0 Liver Function 03/10/22 Range/Units 12:52 Total Bilirubin 0.3 (0.0-1.0) mg/dL Direct Bilirubin < 0.2 (0.0-0.5) mg/dL AST 12 (5-31) U/L ALT 9 (0-31) U/L Alkaline Phosphatase 84 (39-117) U/L Albumin 3.7 (3.5-5.0) g/dL Urine 03/10/22 03/10/22 Range/Units 13:00 13:00 Urine Color Yellow Urine Appearance Cloudy Urine pH 7.0 (5.0-9.0) Ur Specific [place] 1.020 (1.005-1.025) Urine Protein Negative (Neg-Trace) mg/dL Urine Glucose (UA) Negative (Negative) mg/dL Urine Test NEGATIVE (NEGATIVE) All other labs normal. Imaging Additional studies: Laboratory Results WBC 13.7 X10*3/uL (4.8-10.8) H 03/10/22 12:52 RBC 4.41 X10*6/uL (4.20-5.50) 03/10/22 12:52 Hgb 13.0 g/dl (12.0-16.0) 03/10/22 12:52 Hct 39.4 % (37.0-47.0) 03/10/22 12:52 MCV 89.3 fL (80.0-98.0) 03/10/22 12:52 MCH 29.5 pg (27.0-33.0) 03/10/22 12:52 MCHC 33.0 g/dl (31.0-35.0) 03/10/22 12:52 RDW 13.2 % (11.0-16.0) 03/10/22 12:52 Plt Count 448 X10*3/uL (160-400) H 03/10/22 12:52 MPV 8.4 fL (9.4-12.3) L 03/10/22 12:52 Immature Gran % (Auto) 0.4 % (0.0-0.4) 03/10/22 12:52 Neut % (Auto) 81.0 % (45-73) H 03/10/22 12:52 Lymph % (Auto) 14.0 % (20-40) L 03/10/22 12:52 [place] % (Auto) 2.9 % (2-11) 03/10/22 12:52 Eos % (Auto) 1.3 % (0-4) 03/10/22 12:52 Baso % (Auto) 0.4 % (0-2) 03/10/22 12:52 Lymph # (Auto) 1.9 X10*3/uL (1.2-4.9) 03/10/22 12:52 [place] # (Auto) 0.4 X10*3/uL (0.1-1.2) 03/10/22 12:52 Eos # (Auto) 0.2 X10*3/uL (0.0-0.4) 03/10/22 12:52 Baso # (Auto) 0.1 X10*3/uL (0.0-0.2) 03/10/22 12:52 Abs Immat Gran (auto) 0.06 X10*3/uL (0.00-0.03) H 03/10/22 12:52 Absolute Neuts (auto) 11.1 x10*3/uL (2.0-8.3) H 03/10/22 12:52 Absolute Nucleated RBC 0.000 X10*3/uL (0.0-0.012) 03/10/22 12:52 Nucleated RBC % (auto) 0.0 /100WBC (0.0-0.2) 03/10/22 12:52 ESR 49 MM/HR (0-20) H 03/10/22 12:52 PT 13.2 SEC (10.0-13.1) H 03/10/22 12:52 INR 1.1 (0.9-1.1) 03/10/22 12:52 APTT 39.4 SEC (26.0-36.4) H 03/10/22 12:52 Sodium 141 mmol/L (135-145) 03/10/22 12:52 Potassium 3.9 mmol/L (3.3-5.1) 03/10/22 12:52 Chloride 102 mmol/L (96-108) 03/10/22 12:52 Carbon Dioxide 28 mmol/L (22-29) 03/10/22 12:52 Anion Gap 15 (12-20) 03/10/22 12:52 BUN 10 mg/dL (9-16) 03/10/22 12:52 Creatinine 0.79 mg/dL (0.5-1.4) 03/10/22 12:52 Estim Creat Clear Calc 99.3 03/10/22 12:52 Estimated GFR > 60 03/10/22 12:52 Random Glucose 94 mg/dL (60-115) 03/10/22 12:52 Lactic Acid 0.8 mmol/L (0.5-2.0) 03/10/22 12:52 Calcium 9.0 mg/dL (8.4-10.2) 03/10/22 12:52 Magnesium 1.9 mg/dL (1.6-2.6) 03/10/22 12:52 Total Bilirubin 0.3 mg/dL (0.0-1.0) 03/10/22 12:52 Direct Bilirubin < 0.2 mg/dL (0.0-0.5) 03/10/22 12:52 AST 12 U/L (5-31) 03/10/22 12:52 ALT 9 U/L (0-31) 03/10/22 12:52 Alkaline Phosphatase 84 U/L (39-117) 03/10/22 12:52 C-Reactive Protein 6.38 mg/dL (< or = 0.50) H 03/10/22 12:52 Total Protein 6.8 g/dL (6.5-8.0) 03/10/22 12:52 Albumin 3.7 g/dL (3.5-5.0) 03/10/22 12:52 Urine Color Yellow 03/10/22 13:00 Urine Appearance Cloudy 03/10/22 13:00 Urine pH 7.0 (5.0-9.0) 03/10/22 13:00 Ur Specific [place] 1.020 (1.005-1.025) 03/10/22 13:00 Urine Protein Negative mg/dL (Neg-Trace) 03/10/22 13:00 Urine Glucose (UA) Negative mg/dL (Negative) 03/10/22 13:00 Urine Ketones Negative mg/dL (Negative) 03/10/22 13:00 Urine Blood Negative (Negative) 03/10/22 13:00 Urine Nitrite Negative (Negative) 03/10/22 13:00 Ur Leukocyte Esterase Small (1+) (Negative) H 03/10/22 13:00 Urine RBC 0-2 /HPF (0-2) 03/10/22 13:00 Urine WBC 6-10 /HPF (0-5) H 03/10/22 13:00 Ur Squamous Epith Cells 3-5 /HPF (0-2) 03/10/22 13:00 Urine Bacteria 4+ (None Seen) 03/10/22 13:00 Hyaline Casts 0-2 /LPF (0-2) 03/10/22 13:00 Urine Test NEGATIVE (NEGATIVE) 03/10/22 13:00 Urine Opiates Screen POSITIVE (Not Detect) H 03/10/22 13:00 Urine Fentanyl Screen POSITIVE (Not Detect) H 03/10/22 13:00 Ur Barbiturates Screen Not Detected (Not Detect) 03/10/22 13:00 Ur Phencyclidine Scrn Not Detected (Not Detect) 03/10/22 13:00 Ur Amphetamines Screen Not Detected (Not Detect) 03/10/22 13:00 U Benzodiazepines Scrn POSITIVE (Not Detect) H 03/10/22 13:00 Urine Cocaine Screen POSITIVE (Not Detect) H 03/10/22 13:00 U Marijuana (THC) Screen Not Detected (Not Detect) 03/10/22 13:00 Ethyl Alcohol < 10 mg/dL 03/10/22 12:55 COVID-19 ([facility]) Negative (Negative) 03/10/22 12:52 COVID-19 Clin Com See Note 03/10/22 12:52 Impressions Chest X-Ray 03/10/22 12:10 IMPRESSION: No acute cardiopulmonary process. Soft Tissue Neck CT 03/10/22 14:06 IMPRESSION: - There is a large peripherally enhancing fluid collection within the central infrahyoid neck measuring up to 7.5 cm AP by 5.3 cm TV by 6 cm CC that is most suggestive of an abscess with surrounding cellulitis. The abscess extends from the ventral midline subcutaneous soft tissues deep to the thyroid strap musculature along the anterior margin of the lower right and left thyroid lobe extending inferiorly towards the thoracic inlet. The abscess results in dorsal mass effect on the trachea within the infrahyoid neck. - There is stranding and edema within the upper mediastinum concerning for adjacent mediastinitis. Assessment and Plan (1) Abscess of skin or subcutaneous tissue: Status: Inactive I have reviewed her CAT scan and this does show a large abscess on the anterior neck that extends towards the thoracic inlet with noted inflammatory changes suggestive of mediastinitis. The abscess fluid seems to also extend towards the lateral aspect of the trachea. Although the abscess itself appears to be superficial, it will appear that she will require more than just an I and D and may need to have a drains placed as well because of the inflammatory changes. If she did have acute respiratory compromise at this time from pressure effect, I can do of make I&D to drain some of the fluid as this appears to be superficial. However, the this may not be ad equate as treatment because of the corresponding inflammatory changes in the mediastinum. I have discussed the above with the thoracic surgery service and they have recommended transferring the patient to the tertiary care center for definitive treatment. She is otherwise hemodynamically stable. (2) Acute mediastinitis: Status: Inactive Time Spent With Patient Time: Total time managing care of this patient today ____ minutes. Procedures Date of Service Date of Service: 03/10/22
== END 2022-03-10 17:12 | disposition left against medical advice (07) ==
PROVIDERS: Physician Assistant; Emergency Provider Emergency Medicine; PCP Family Medicine
DX: L02.11 Cutaneous abscess of neck (principal); J98.51 Mediastinitis; F14.90 Cocaine use, unspecified, uncomplicated; F11.90 Opioid use, unspecified, uncomplicated; Z20.822 Contact with and (suspected) exposure to COVID-19; Z20.828 Contact with and (suspected) exposure to other viral communicable diseases; Z79.899 Other long term (current) drug therapy
CPT/HCPCS: 36415; 70491; 71045; 80048; 80076; 80307; 81001; 81025; 82077; 83605; 83735; 85025; 85610; 85652; 85730; 86140; 87040; 87077; 87086; 87088; 87147; 87186; 87205; 87635; 96365; 96374; 96375; 99284; J2543; J3370; Q9967

== ENCOUNTER 2022-04-30 14:46 | Emergency (ER) | payer OTHER, SELFPAY ==
--- NOTE | 2022-04-30 15:13 | ED_ITS ---
HPI - Dental/Oral General Chief complaint: Dental/Oral <MARIA ESTHER Alexander - Last Filed: 04/30/22 15:18> Stated complaint: Facial swelling <MARIA ESTHER Alexander - Last Filed: 04/30/22 15:18> Time Seen by Provider: 04/30/22 15:29 <MARIA ESTHER Alexander - Last Filed: 04/30/22 15:18> Source: patient and old records reviewed <MARIA ESTHER Tenorio - Last Filed: 04/30/22 17:25> Mode of arrival: ambulatory <MARIA ESTHER Tenorio - Last Filed: 04/30/22 17:25> Limitations: no limitations <MARIA ESTHER Tenorio Last Filed: 04/30/22 17:25> History of Present Illness HPI Narrative: 32-year-old female with history of IVDA, recent neck abscess with Staph bacteremia requiring operative intervention and washout at [facility] in February 2022 presents to the ER for evaluation left-sided upper dental pain for the last several days. She states she has several broken teeth and was referred to an oral surgeon for extraction a long time ago now but never went. She states this pain and swelling started after she was flossing one of her upper molars. She has been taking motrin at home with minimal improvement. No fevers with the motrin on board. She denies any ongoing IVDA, has been snorting heroin/fentayl. Not interested in any detox. <MARIA ESTHER Tenorio - Last Filed: 04/30/22 17:25> MD Complaint: tooth pain and tooth injury <MARIA ESTHER Tenorio Last Filed: 04/30/22 17:25> Location: Tooth # (12) <MARIA ESTHER Tenorio Last Filed: 04/30/22 17:25> Onset (ago): day(s) (12) <MARIA ESTHER Tenorio Last Filed: 04/30/22 17:25> Duration: constant <MARIA ESTHER Tenorio Last Filed: 04/30/22 17:25> Severity: severe <MARIA ESTHER Tenorio Last Filed: 04/30/22 17:25> Severity scale (1-10): 9 <MARIA ESTHER Tenorio Last Filed: 04/30/22 17:25> Relieving factors: NSAIDs <MARIA ESTHER Tenorio - Last Filed: 04/30/22 17:25> Exacerbating factors: chewing <MARIA ESTHER Tenorio - Last Filed: 04/30/22 17:25> Context: history of dental caries and poor dental care <MARIA ESTHER Tenorio - Last Filed: 04/30/22 17:25> Associated symptoms: gum swelling <MARIA ESTHER Tenorio - Last Filed: 04/30/22 17:25> Treatment prior to arrival: oral analgesic <MARIA ESTHER Tenorio Last Filed: 04/30/22 17:25> Related Data Home medications: Previous Rx's Medication Instructions Recorded clindamycin HCl 300 mg capsule 300 mg PO Q6H #40 caps 04/10/21 levofloxacin 750 mg tablet 750 mg PO DAILY 7 days #7 tabs 01/07/22 chlorhexidine gluconate 0.12 % 15 ml buccal BID #473 mL 04/30/22 mouthwash (Peridex) clindamycin HCl 300 mg capsule 300 mg PO Q6H 7 days #28 caps 04/30/22 ibuprofen 600 mg tablet 600 mg PO Q8H PRN fever or pain 04/30/22 #30 tabs valacyclovir 1 gram tablet 1,000 mg PO BID #14 tabs 04/30/22 (Valtrex) <MARIA ESTHER Alexander - Last Filed: 04/30/22 15:18> Allergies/adverse reactions: Allergies Allergy/AdvReac Type Severity Reaction Status Date / Time No Known Allergies Allergy Verified 04/10/21 16:52 [No Known Allergies*] <MARIA ESTHER Alexander - Last Filed: 04/30/22 15:18> Review of Systems Review of Systems: Yes all other systems are reviewed and are negative <MARIA ESTHER Tenorio - Last Filed: 04/30/22 17:25> PMFSH Past Medical History Medical History: Medical History Asthma Hypothyroid Polysubstance (including opioids) dependence with physiol dependence <MARIA ESTHER Alexander Last Filed: 04/30/22 15:18> Social History Social History: Social History Alcohol intake: current Alcohol intake frequency: a few times a week Substance Use Type: Crack/Cocaine, Heroin and Opiates Advance Directives: No Advance Directives Information Provided: No <MARIA ESTHER Alexander - Last Filed: 04/30/22 15:18> Physical Exam Vital Signs: Vital Signs: Last Vital Signs Temp 97.9 F 04/30/22 15:14 Pulse 109 H 04/30/22 15:14 Resp 18 04/30/22 15:14 BP 172/114 H 04/30/22 15:14 Pulse Ox 98 04/30/22 15:14 O2 Del Method 04/30/22 15:14 BMI result Body Mass Index 25.7 <MARIA ESTHER Alexander - Last Filed: 04/30/22 15:18> Vital Signs: Last Vital Signs Temp 97.9 F 04/30/22 15:14 Pulse 109 H 04/30/22 15:14 Resp 18 04/30/22 15:14 BP 172/114 H 04/30/22 15:14 Pulse Ox 98 04/30/22 15:14 O2 Del Method 04/30/22 15:14 BMI result Body Mass Index 25.7 <MARIA ESTHER Tenorio - Last Filed: 04/30/22 17:25> Appearance: Alert. Oriented X3. No acute distress. HEENT: swelling of the left maxiallary area. no trismus. moist mucus membranes. poor dentition. several broken and rotting teeth. tooth #12 broken to the root with associated gingival swelling and fluctuance. CVS: Normal heart rate and rhythm. Pulses normal. No murmur. Respiratory: No respiratory distress. Lungs CTAB Skin: Skin warm and dry. Normal skin color. Normal skin turgor. No rashes. Extremities: no evidence of new track gonsales on her UP Neuro: Oriented X 3. No motor deficit. No sensory deficit. <MARIA ESTHER Tenorio - Last Filed: 04/30/22 17:25> Course Course Course Narrative: RME--32yo F w/PMHx substance abuse, neck abscess s/p surgery at [facility] c/o L sided dental pain and facial swelling x few days. HTNsive & tachycardic in triage likely from pain. +L facial swelling noted with Upper incisor area of fluctuance and ttp Low suspicion for sepsis at this time <MARIA ESTHER Alexander - Last Filed: 04/30/22 15:18> Medical Decision Making Medical Decision Making [facility] Narrative: 32-year-old female with history of drug use, recent neck infection requiring surgical intervention, washout, drainage and ICU level of care at [facility] all month and a half ago presenting to the ER with left upper dental pain and facial swelling for the last 4 days. She has no trismus on exa mination. No drainage from the area. There was an area with some fluctuance, attempted drainage made however no purulent material was able to be expressed. Lab work showing no leukocytosis which is reassuring. Will start her on clindamycin for dental abscess, have her follow up with the [facility] dentist where she was just recently seen. She will also call the oral surgeons in [place] to see if she can get her referral read deemed and seen by an oral surgeon. She needs several extractions. She was given strict return precautions. <MARIA ESTHER Tenorio - Last Filed: 04/30/22 17:25> Differential Diagnosis Differential Diagnoses: The differential diagnosis associated with the presentation includes <MARIA ESTHER Tenorio Last Filed: 04/30/22 17:25> Dental abscess, dental caries, no evidence of sepsis, no Lj's angina <MARIA ESTHER Tenorio - Last Filed: 04/30/22 17:25> Lab Data [facility] Lab Attestation statement: I reviewed the patient's lab results. <MARIA ESTHER Tenorio - Last Filed: 04/30/22 17:25> Result Diagrams: 04/30/22 16:37 04/30/22 16:37 <MARIA ESTHER Alexander - Last Filed: 04/30/22 15:18> Labs: Lab Results 04/30/22 Range/Units 16:37 WBC 8.9 (4.8-10.8) X10*3/uL RBC 4.61 (4.20-5.50) X10*6/uL Hgb 13.9 (12.0-16.0) g/dl Hct 42.0 (37.0-47.0) % MCV 91.1 (80.0-98.0) fL MCH 30.2 (27.0-33.0) pg MCHC 33.1 (31.0-35.0) g/dl RDW 13.8 (11.0-16.0) % Plt Count 357 (160-400) X10*3/uL MPV 8.7 L (9.4-12.3) fL Immature Gran % (Auto) 0.2 (0.0-0.4) % Neut % (Auto) 71.9 (45-73) % Lymph % (Auto) 20.7 (20-40) % [place] % (Auto) 5.7 (2-11) % Eos % (Auto) 0.8 (0-4) % Baso % (Auto) 0.7 (0-2) % Lymph # (Auto) 1.8 (1.2-4.9) X10*3/uL [place] # (Auto) 0.5 (0.1-1.2) X10*3/uL Eos # (Auto) 0.1 (0.0-0.4) X10*3/uL Baso # (Auto) 0.1 (0.0-0.2) X10*3/uL Abs Immat Gran (auto) 0.02 (0.00-0.03) X10*3/uL Absolute Neuts (auto) 6.4 (2.0-8.3) x10*3/uL Absolute Nucleated RBC 0.000 (0.0-0.012) X10*3/uL Nucleated RBC % (auto) 0.0 (0.0-0.2) /100WBC <MARIA ESTHER Alexander - Last Filed: 04/30/22 15:18> Lab Results 04/30/22 Range/Units 16:37 WBC 8.9 (4.8-10.8) X10*3/uL RBC 4.61 (4.20-5.50) X10*6/uL Hgb 13.9 (12.0-16.0) g/dl Hct 42.0 (37.0-47.0) % MCV 91.1 (80.0-98.0) fL MCH 30.2 (27.0-33.0) pg MCHC 33.1 (31.0-35.0) g/dl RDW 13.8 (11.0-16.0) % Plt Count 357 (160-400) X10*3/uL MPV 8.7 L (9.4-12.3) fL Immature Gran % (Auto) 0.2 (0.0-0.4) % Neut % (Auto) 71.9 (45-73) % Lymph % (Auto) 20.7 (20-40) % [place] % (Auto) 5.7 (2-11) % Eos % (Auto) 0.8 (0-4) % Baso % (Auto) 0.7 (0-2) % Lymph # (Auto) 1.8 (1.2-4.9) X10*3/uL [place] # (Auto) 0.5 (0.1-1.2) X10*3/uL Eos # (Auto) 0.1 (0.0-0.4) X10*3/uL Baso # (Auto) 0.1 (0.0-0.2) X10*3/uL Abs Immat Gran (auto) 0.02 (0.00-0.03) X10*3/uL Absolute Neuts (auto) 6.4 (2.0-8.3) x10*3/uL Absolute Nucleated RBC 0.000 (0.0-0.012) X10*3/uL Nucleated RBC % (auto) 0.0 (0.0-0.2) /100WBC <MARIA ESTHER Tenorio - Last Filed: 04/30/22 17:25> External Record Review External record reviewed: Prior outpatient labs and Prior outpatient radiology <MARIA ESTHER Tenorio - Last Filed: 04/30/22 17:25> Tests considered The following testing was considered but not selected: CT scan of the facial bones was considered <MARIA ESTHER Tenorio Last Filed: 04/30/22 17:25> Prescription Management I considered prescription management with: Pain Medication and Antibiotic <MARIA ESTHER Tenorio Last Filed: 04/30/22 17:25> Chronic Conditions Patient?s care impacted by: Other (Ongoing chronic drug use) <MARIA ESTHER Tenorio Last Filed: 04/30/22 17:25> Procedures Abscess I/D Site: oral (Dental) <MARIA ESTHER Tenorio - Last Filed: 04/30/22 17:25> Side (if applicable): left <MARIA ESTHER Tenorio - Last Filed: 04/30/22 17:25> Local Anesthetic: other anesthetic (Topical lidocaine) <MARIA ESTHER Tenorio - Last Filed: 04/30/22 17:25> Technique: incised with blade <MARIA ESTHER Tenorio - Last Filed: 04/30/22 17:25> Sent for culture/gram staining?: No <MARIA ESTHER Tenorio - Last Filed: 04/30/22 17:25> Irrigation: Yes <MARIA ESTHER Tenorio - Last Filed: 04/30/22 17:25> Packing used?: none <MARIA ESTHER Tenorio - Last Filed: 04/30/22 17:25> Complications: pain and bleeding <MARIA ESTHER Tenorio - Last Filed: 04/30/22 17:25> Critical Care Time Critical Care Time Critical Care Time: No <MARIA ESTHER Tenorio - Last Filed: 04/30/22 17:25> Discharge Plan Discharge Clinical Impression: Dental abscess <MARIA ESTHER Alexander - Last Filed: 04/30/22 15:18> Patient Disposition: Home, Self-Care <MARIA ESTHER Alexander - Last Filed: 04/30/22 15:18> Instructions: Dental Abscess (ED) <MARIA ESTHER Alexander - Last Filed: 04/30/22 15:18> Additional Instructions: Take the prescribed antibiotic as directed. Complete the entire course. Use the prescribed antiseptic mouthwash 2 times per day Follow up with a dentist and oral surgeon as soon as possible. If you develop new or worsening symptoms call 911 or come back to the ER for further evaluation. <MARIA ESTHER Alexander - Last Filed: 04/30/22 15:18> Prescriptions: New clindamycin HCl 300 mg capsule 300 mg PO Q6H 7 Days Qty: 28 0RF chlorhexidine gluconate [Peridex] 0.12 % mouthwash 15 ml buccal BID Qty: 473 0RF valacyclovir [Valtrex] 1 gram tablet 1,000 mg PO BID Qty: 14 0RF ibuprofen 600 mg tablet 600 mg PO Q8H PRN (Reason: fever or pain) Qty: 30 0RF No Action levofloxacin 750 mg tablet 750 mg PO DAILY 7 Days Qty: 7 0RF clindamycin HCl 300 mg capsule 300 mg PO Q6H Qty: 40 0RF <MARIA ESTHER Alexander - Last Filed: 04/30/22 15:18> Referrals: Cathy Tavera MD [Primary Care Provider] - <MARIA ESTHER Alexander - Last Filed: 04/30/22 15:18>
[2022-04-30 15:14] VITALS: BP 172/114; PULSE 109; RESP 18; TEMP 36.6; O2SAT 98; BMI 25.7
[2022-04-30 16:43] LABS: MANUAL DIFF FLAG NO
[2022-04-30 16:49] LABS: Basophils Absolute Auto 0.1 X10*3/uL (0.0-0.2); Basophils Percent Auto 0.7 % (0-2); Eosinophils Absolute Auto 0.1 X10*3/uL (0.0-0.4); Eosinophils Percent Auto 0.8 % (0-4); Hemoglobin 13.9 g/dl (12.0-16.0); Imm Gran Abs Auto 0.02 X10*3/uL (0.00-0.03); Imm Gran Pct Auto 0.2 % (0.0-0.4); Lymphocytes Absolute Auto 1.8 X10*3/uL (1.2-4.9); Lymphocytes Percent Auto 20.7 % (20-40); Mean Corpuscular HGB Conc 33.1 g/dl (31.0-35.0); Mean Corpuscular Hemoglobin 30.2 pg (27.0-33.0); Mean Corpuscular Volume 91.1 fL (80.0-98.0); Mean Platelet Volume 8.7 fL (9.4-12.3); Monocytes Absolute Auto 0.5 X10*3/uL (0.1-1.2); Monocytes Percent Auto 5.7 % (2-11); Neutrophils Absolute Auto 6.4 x10*3/uL (2.0-8.3); Neutrophils Percent Auto 71.9 % (45-73); Platelet Count 357 X10*3/uL (160-400); Red Blood Count 4.61 X10*6/uL (4.20-5.50); Red Cell Distribution Width 13.8 % (11.0-16.0); White Blood Count 8.9 X10*3/uL (4.8-10.8)
== END 2022-04-30 17:27 | disposition home or self-care (01) ==
PROVIDERS: Physician Assistant; Emergency Provider Emergency Medicine; PCP Family Medicine
DX: K04.7 Periapical abscess without sinus (principal); R00.0 Tachycardia, unspecified; I10 Essential (primary) hypertension; K08.89 Other specified disorders of teeth and supporting structures; F11.20 Opioid dependence, uncomplicated; F19.20 Other psychoactive substance dependence, uncomplicated
CPT/HCPCS: 36415; 41800; 80048; 85025; 86140; 99282; 99283

== ENCOUNTER 2022-05-13 22:21 | Emergency (ER) | payer OTHER, SELFPAY ==
[2022-05-13 22:22] VITALS: BP 191/126; PULSE 119; RESP 20; TEMP 36.8; O2SAT 98; BMI 26.6
--- NOTE | 2022-05-13 22:52 | PC.NURSE ---
pt fully alert, an ambulatory to exam room. nurse did not visualize lacerations, as left arm is wrapped with super fluff and omid to control bleeding. pt sts that she was doing laundry and cut her arm on a razor. pt sts it was not self inflicted. pt calm and cooperative, resting with arm elevated, call collier within reach.
--- NOTE | 2022-05-14 00:42 | ED_ITS ---
HPI - General Adult General Chief complaint: Wound/Laceration Stated complaint: pick on arm, wont stop bleeding Time Seen by Provider: 05/13/22 23:17 Source: patient, RN notes reviewed and old records reviewed Mode of arrival: ambulatory Limitations: no limitations History of Present Illness HPI narrative: 32-year-old female presents for evaluation of multiple lacerations to her left arm. 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 She sustained several lacerations to left forearm This happened about 30 minutes prior to arrival She states the pain is minimal and she is able to move her wrist and all of her fingers on her left arm/hand She reports her tetanus is up-to-date from 5 years ago She is adamant that there was no foul play or self-inflicted wounds Related Data Previous Rx's Medication Instructions Recorded clindamycin HCl 300 mg capsule 300 mg PO Q6H #40 caps 04/10/21 levofloxacin 750 mg tablet 750 mg PO DAILY 7 days #7 tabs 01/07/22 chlorhexidine gluconate 0.12 % 15 ml buccal BID #473 mL 04/30/22 mouthwash (Peridex) clindamycin HCl 300 mg capsule 300 mg PO Q6H 7 days #28 caps 04/30/22 ibuprofen 600 mg tablet 600 mg PO Q8H PRN fever or pain 04/30/22 #30 tabs valacyclovir 1 gram tablet 1,000 mg PO BID #14 tabs 04/30/22 (Valtrex) Allergies Allergy/AdvReac Type Severity Reaction Status Date / Time No Known Allergies Allergy Verified 05/13/22 22:33 [No Known Allergies*] Review of Systems Constitutional: Constitutional: Denies fever(s) Integumentary/Breasts: Skin/Breast: Reports wounds (Lacerations to left forearm) PMFSH Past Medical History Medical History Asthma Hypothyroid Polysubstance (including opioids) dependence with physiol dependence Social History Social History Alcohol intake: current Alcohol intake frequency: a few times a week Substance Use Type: Crack/Cocaine, Heroin and Opiates Advance Directives: No Advance Directives Information Provided: Yes Physical Exam ED Vital Signs: Vital Signs - 24 hr 05/13/22 22:22 Temperature 98.3 F Pulse Rate 119 H Respiratory Rate 20 Blood Pressure 191/126 H Pulse Oximetry 98 Oxygen Delivery Method Room Air BMI result Body Mass Index 26.6 Const General: healthy appearing, comfortable, no acute distress, alert and awake Nutritional Appearance: well nourished Orientation/consciousness: patient oriented x3 Eyes Eyelids: Yes eyelids normal Conjunctivae: conjunctivae normal Sclerae: sclerae normal Corneas: corneas normal Pupils: Equal, round and reactive pupils present EOM: EOMs intact bilaterally Resp Effort & Inspection: normal respiratory effort, able to speak in complete sentences, no audible wheezes and not labored Cardio Other: Radial pulses 2+ and equal. Capillary refill intact to all digits to the left and Skin Other: Patient has 3 separate, parallel, linear lacerations to the left ventral forearm. The most proximal is approximately 6 cm. The more central wound is approximately 8 cm in the distal wound is 5 cm. There is visible subcutaneous fat in all the wounds. No evident tendons, vasculature underneath. Neuro Other: Distal sensation grossly intact to all digits of the left hand General: patient oriented x3 Cranial nerves: Yes Equal, round and reactive pupils present Extrem Other: Patient is able to flex and extend the left wrist without any difficulty. Full range of motion. She is able to flex and extend all digits the left hand with full range of motion. General: Yes full ROM Medications Administered Discontinued Medications Generic Name Dose Route Start Last Admin Trade Name Freq PRN Reason Stop Dose Admin Lidocaine/Epinephrine 10 ml 05/13/22 23:17 05/13/22 23:28 Lidocaine Hcl 2% Pf/Epi 1:200 10 Ml Vial INFILTRATI 05/13/22 23:18 10 ml ONCE ONE Administration Procedures Laceration Laceration 1: Site: upper extremity (Left forearm, proximal wound) Side (If applicable): left Size (cm): 6 Description: linear and clean Depth: simple, single layer Local Anesthetic: lidocaine 2% (With epinephrine) Amount of anesthesia used (mL): 3 Pre-repair: wound explored and irrigated extensively Skin layer closed with: nylon Size (cm): 4-0 Number of sutures: 7 Technique: simple, interrupted Laceration 2: Site: upper extremity (Left forearm, central wound) Side (If applicable): left Size (cm): 8 Description: linear and clean Depth: simple, single layer Local Anesthetic: lidocaine 2% (With epinephrine) Amount of anesthesia used (mL): 4 Pre-repair: wound explored and irrigated extensively Skin layer closed with: nylon Size (cm): 4-0 Number of sutures: 9 Technique: simple, interrupted Laceration 3: Site: upper extremity (Left forearm, distal wound) Side (If applicable): left Size (cm): 5 Description: linear and clean Depth: simple, single layer Local Anesthetic: lidocaine 2% (With epinephrine) Amount of anesthesia used (mL): 3 Pre-repair: wound explored and irrigated extensively Skin layer closed with: nylon Size (cm): 4-0 Number of sutures: 6 Medical Decision Making Medical Decision Making MDM Narrative: Multiple lacerations repaired with sutures. See procedure notes. No evident of tender, neurovascular involvement. Tetanus up-to-date. Patient reports that it was clean, previously on open box of razor blades. No indication for antibiotic coverage Differential Diagnosis Laceration Puncture wound Skin tear Tendon laceration Discharge Plan Discharge Clinical Impression: Laceration Patient Disposition: Home, Self-Care Instructions: Laceration (ED) Additional Instructions: Keep the area clean and dry. You had a total of 22 sutures placed to her left forearm in 3 different wounds. These can be removed in 10 days He can have it removed at your primary doctor's office or return to the emergency department Prescriptions: No Action levofloxacin 750 mg tablet 750 mg PO DAILY 7 Days Qty: 7 0RF clindamycin HCl 300 mg capsule 300 mg PO Q6H 7 Days Qty: 28 0RF chlorhexidine gluconate [Peridex] 0.12 % mouthwash 15 ml buccal BID Qty: 473 0RF valacyclovir [Valtrex] 1 gram tablet 1,000 mg PO BID Qty: 14 0RF ibuprofen 600 mg tablet 600 mg PO Q8H PRN (Reason: fever or pain) Qty: 30 0RF clindamycin HCl 300 mg capsule 300 mg PO Q6H Qty: 40 0RF
--- NOTE | 2022-05-14 01:11 | PC.NURSE ---
Pt. received sutures to her lacerations and was then cleaned and bandaged by this RN.
== END 2022-05-14 01:12 | disposition home or self-care (01) ==
PROVIDERS: Emergency Provider Emergency Medicine Emergency Medical Services
DX: S41.112A Laceration without foreign body of left upper arm, initial encounter (principal); W26.9XXA Contact with unspecified sharp object(s), initial encounter; Y93.9 Activity, unspecified; Y92.009 Unspecified place in unspecified non-institutional (private) residence as the place of occurrence of the external cause; Y99.9 Unspecified external cause status; Z79.899 Other long term (current) drug therapy
CPT/HCPCS: 12035; 99282; 99284

== ENCOUNTER 2022-06-12 11:46 | Emergency (ER) | payer MEDICAID, SELFPAY ==
[2022-06-12 11:57] VITALS: BP 139/82; PULSE 90; O2SAT 98
[2022-06-12 12:08] VITALS: BP 117/80; PULSE 80; RESP 12; TEMP 36.4; O2SAT 100; BMI 26.9
--- NOTE | 2022-06-12 12:33 | ED_ITS ---
HPI - Overdose General Chief Complaint: ETOH/Substance Use Stated Complaint: overdose Time Seen by Provider: 06/12/22 12:29 Source: EMS Mode of arrival: EMS History of Present Illness HPI Narrative: This is a 32 years old the female with history of substance abuse she was found lethargic in the motel a transported the in the emergency department she is lethargic but easily arousable, she took 4 oxycodone and 4 ativan,she is not SI. Pt has long hx of substance abuse she was seen here 08/26/21 unresponsive after OD. complaint: accidental overdose Onset (ago): hour(s) (1) Intent: wanted to escape Context: Accidental Overdose: wanted to get high Related Data Previous Rx's Medication Instructions Recorded clindamycin HCl 300 mg capsule 300 mg PO Q6H #40 caps 04/10/21 levofloxacin 750 mg tablet 750 mg PO DAILY 7 days #7 tabs 01/07/22 chlorhexidine gluconate 0.12 % 15 ml buccal BID #473 mL 04/30/22 mouthwash (Peridex) clindamycin HCl 300 mg capsule 300 mg PO Q6H 7 days #28 caps 04/30/22 ibuprofen 600 mg tablet 600 mg PO Q8H PRN fever or pain 04/30/22 #30 tabs valacyclovir 1 gram tablet 1,000 mg PO BID #14 tabs 04/30/22 (Valtrex) Allergies Allergy/AdvReac Type Severity Reaction Status Date / Time No Known Allergies Allergy Verified 06/12/22 12:10 [No Known Allergies*] Review of Systems Review of Systems: Yes Unobtainable due to mental condition PMFSH Past Medical History [facility] Narrative: Polysubstance abuse Medical History Asthma Hypothyroid Polysubstance (including opioids) dependence with physiol dependence Social History Social History Alcohol intake: current Alcohol intake frequency: a few times a week Use of substances other than those prescribed or required for medical reasons: Yes Substance Use Type: Opiates and Other Advance Directives: No Advance Directives Information Provided: No Physical Exam Vital Signs: Vital Signs: Last Vital Signs Temp 97.6 F 06/12/22 12:08 Pulse 80 06/12/22 12:08 Resp 12 04/28/23 12:08 BP 117/80 06/12/22 12:08 Pulse Ox 100 06/12/22 12:08 O2 Del Method Room Air 06/12/22 12:08 BMI result Body Mass Index 26.9 Const: General: no acute distress and well developed Nutritional Appearance: well nourished HEENT: Head: Yes normal to inspection Face and sinus: Yes normal facial exam Mouth: Normal oral and palatal mucosa present Throat: Yes posterior oropharynx normal Neck: Neck: Yes normal visual inspection and Yes full ROM Chest: Chest palpation & inspection: normal inspection of the chest Resp: Effort & Inspection: normal respiratory effort Auscultation: clear to auscultation bilaterally Cardio: Jugular venous distension: no JVD Rate: regular rate Rhythm: regular rhythm GI: Inspection: Yes normal to inspection Palpation (GI): Soft to palpation, not firm and nontender Skin: General skin exam: no rashes or lesions noted Neuro: Other: Patient is lethargic but arousable to voice no focal deficit Course Reevaluation(s) Reevaluation #1: Signed off to DR Singh need to be reexamined when more awake,at this time she is easily arousable to verbal stimuli Time: 16:36 Medical Decision Making Medical Decision Making MDM Narrative: Patient presented under the influence of drugs, will monitor with end-tidal CO2 O2 sat monitor cardiac nurse specialist will reassess when sober Differential Diagnosis Differential Diagnoses: The differential diagnosis associated with the presentation includes Heroin overdose the/alcohol intoxication/ Percocet Ativan he overdose Discharge Plan Discharge Clinical Impression: Polysubstance abuse Patient Disposition: Still a Patient Prescriptions: No Action levofloxacin 750 mg tablet 750 mg PO DAILY 7 Days Qty: 7 0RF clindamycin HCl 300 mg capsule 300 mg PO Q6H 7 Days Qty: 28 0RF chlorhexidine gluconate [Peridex] 0.12 % mouthwash 15 ml buccal BID Qty: 473 0RF valacyclovir [Valtrex] 1 gram tablet 1,000 mg PO BID Qty: 14 0RF ibuprofen 600 mg tablet 600 mg PO Q8H PRN (Reason: fever or pain) Qty: 30 0RF clindamycin HCl 300 mg capsule 300 mg PO Q6H Qty: 40 0RF
--- NOTE | 2022-06-12 14:32 | PC.NURSE ---
multiple attempts from multiple staff for blood draw. phleb contacted. pt able to be woken up with loud verbal stimuli. vss.
--- NOTE | 2022-06-12 16:25 | PC.NURSE ---
pct to attempt finger stick
[2022-06-12 16:37] VITALS: BP 104/73; PULSE 78; RESP 17; TEMP 36.8; O2SAT 98
[2022-06-12 17:15] LABS: Basophils Absolute Auto 0.1 X10*3/uL (0.0-0.2); Basophils Percent Auto 0.8 % (0-2); Eosinophils Absolute Auto 0.2 X10*3/uL (0.0-0.4); Eosinophils Percent Auto 3.1 % (0-4); Hematocrit 41.3 % (37.0-47.0); Hemoglobin 13.5 g/dl (12.0-16.0); Imm Gran Abs Auto 0.02 X10*3/uL (0.00-0.03); Imm Gran Pct Auto 0.3 % (0.0-0.4); Lymphocytes Percent Auto 42.3 % (20-40); MANUAL DIFF FLAG SCAN; Mean Corpuscular HGB Conc 32.7 g/dl (31.0-35.0); Mean Corpuscular Hemoglobin 30.2 pg (27.0-33.0); Mean Corpuscular Volume 92.4 fL (80.0-98.0); Mean Platelet Volume 8.8 fL (9.4-12.3); Monocytes Absolute Auto 0.5 X10*3/uL (0.1-1.2); Monocytes Percent Auto 6.7 % (2-11); Neutrophils Absolute Auto 3.4 x10*3/uL (2.0-8.3); Neutrophils Percent Auto 46.8 % (45-73); PLT CLUMP 1; Red Blood Count 4.47 X10*6/uL (4.20-5.50); Red Cell Distribution Width 13.6 % (11.0-16.0); SCAN SMEAR FLAG 1
[2022-06-12 17:22] LABS: Alanine Aminotransferase 15 U/L (0-31); Alkaline Phosphatase 72 U/L (39-117); Anion Gap 13 (12-20); Aspartate Amino Transferase 22 U/L (5-31); Bilirubin Total 0.2 mg/dL (0.0-1.0); Blood Urea Nitrogen 12 mg/dL (9-16); Calcium 8.7 mg/dL (8.4-10.2); Carbon Dioxide 22 mmol/L (22-29); Chloride 109 mmol/L (96-108); Creatinine Clr Calc Pharmacy 123.4; Estimated Glomerular Filt Rate > 60; Ethanol < 10 mg/dL; Glucose Random 90 mg/dL (60-115); Potassium 4.5 mmol/L (3.3-5.1); Sodium 139 mmol/L (135-145); Total Protein 6.9 g/dL (6.5-8.0)
[2022-06-12 17:25] LABS: White Blood Count 7.2 X10*3/uL (4.8-10.8)
[2022-06-12 17:26] LABS: Platelet Count 346 X10*3/uL (160-400); SLIDE REVIEW VERIFIED
[2022-06-12 17:56] LABS: HCG Quantitative < 2 mIU/mL
[2022-06-12 19:36] VITALS: BP 107/68; PULSE 72; RESP 14; O2SAT 99
--- NOTE | 2022-06-12 19:37 | PC.NURSE ---
report received from FERNANDO Thornton pt sleeping at this time, respirations even and unlabored, skin pwd, bed dry at this time. All VSS at this time
--- NOTE | 2022-06-12 20:27 | PC.NURSE ---
pt awake now, speaking with this RN, asking why she is in the hospital. This RN explained to patient that she was found unresponsive at a motel and was brought here, patient requesting phone to call friend, phone provided
--- NOTE | 2022-06-12 20:57 | MHC.RECOVSUP ---
? Reason for consult:OPI o? Current location:ED20? o? Identified substance use concern:? -? Overdose ? Intervention: o? Community resources provided ? Plan: o? Follow up tomorrow? ?? Additional information:[facility] met with this pt and discussed treatment with her, pt declined any services. RC provided pt with recovery resources.
[2022-06-12 22:10] VITALS: BP 121/66; PULSE 75; RESP 13; TEMP 36.8; O2SAT 98
--- NOTE | 2022-06-12 22:33 | MHC.EDTECH ---
PATIENT WAS AMBULATED.PATIENT ABLE TO AMBULATE WITH [facility] .
== END 2022-06-12 23:13 | disposition home or self-care (01) ==
PROVIDERS: Emergency Provider Emergency Medicine
DX: F19.10 Other psychoactive substance abuse, uncomplicated (principal)
CPT/HCPCS: 36415; 80053; 82077; 84702; 85025; 99284

== ENCOUNTER 2023-11-19 15:25 | Emergency (ER) | payer MEDICAID, SELFPAY ==
[2023-11-19 15:38] VITALS: BP 160/114; PULSE 110; RESP 18; TEMP 36.8; O2SAT 99; BMI 24.6
--- NOTE | 2023-11-19 15:41 | ED_ITS ---
HPI - General Adult General Chief complaint: Skin/Abscess/Foreign Body Stated complaint: abscess L arm Time Seen by Provider: 11/19/23 22:20 Source: patient Mode of arrival: ambulatory Limitations: no limitations History of Present Illness HPI narrative: Patient is a 33-year-old female who presents emergency department for evaluation of an abscess to her left axilla. Reports that has been there for approximately 3 weeks was very small with scant amount of clear drainage. A few days ago she noticed a increased in size became more painful and was having pus-like drainage. She attempted to drain it on her, reports that she removed a large amount of pus still feels swollen. She has a history of IV drug usage , denies injecting into this area. Denies associated fevers, chills, chest pain, shortness of breath, difficulty breathing, numbness or tingling of the extremity. Related Data Previous Rx's ?Medication ?Instructions ?Recorded clindamycin HCl 300 mg capsule 300 mg PO Q6H #40 caps 04/10/21 levofloxacin 750 mg tablet 750 mg PO DAILY 7 days #7 tabs 01/07/22 chlorhexidine gluconate 0.12 % 15 ml buccal BID #473 mL 04/30/22 mouthwash (Peridex) clindamycin HCl 300 mg capsule 300 mg PO Q6H 7 days #28 caps 04/30/22 ibuprofen 600 mg tablet 600 mg PO Q8H PRN fever or pain 04/30/22 #30 tabs valacyclovir 1 gram tablet 1,000 mg PO BID #14 tabs 04/30/22 (Valtrex) cephalexin 500 mg capsule 500 mg PO QID #27 caps 11/20/23 doxycycline hyclate 100 mg capsule 100 mg PO BID #13 caps 11/20/23 ibuprofen 600 mg tablet 600 mg PO Q8H PRN pain #30 tabs 11/20/23 Allergies Allergy/AdvReac Type Severity Reaction Status Date / Time No Known Allergies Allergy Verified 11/19/23 15:41 [No Known Allergies*] Review of Systems 2 Review of Systems: Yes all other systems are reviewed and are negative PMFSH Past Medical History Attestation statement: The following information was validated with the patient. Source: old records reviewed Medical History Polysubstance (including opioids) dependence with physiol dependence Asthma Hypothyroid Social History Social History Alcohol intake: current Alcohol intake frequency: a few times a week Smoked in Last 30 Days: Yes Substance Use Type: Crack/Cocaine and Other Last Used Substance: Hours (ago) Any prior treatment program specific to substance use: Yes Advance Directives: No Advance Directives Information Provided: No Do you have a plan to hurt others: No Plan Patient : No Physical Exam ED Vital Signs: Vital Signs - 24 hr 11/19/23 15:38 11/19/23 21:52 11/19/23 22:09 Temperature 98.3 F 97.6 F 97.5 F Pulse Rate 110 H 77 72 Respiratory Rate 18 15 17 Blood Pressure 160/114 H 107/71 97/62 Pulse Oximetry 99 95 95 Oxygen Delivery Method Room Air Room Air Room Air 11/20/23 01:17 Temperature 97.4 F Pulse Rate 83 Respiratory Rate 16 Blood Pressure 120/86 Pulse Oximetry 97 Oxygen Delivery Method Room Air BMI result Body Mass Index 24.6 Appearance: Alert.?Oriented to person, place and time. No acute distress.?Normal affect. Eyes: Pupils equal, round and reactive to light.? ENT: Pharynx normal.?? Neck: Normal inspection.? Neck supple.?? CVS: Heart sounds normal. Normal heart rate and rhythm.? Pulses normal.?? Respiratory: No respiratory distress.? Lung sounds clear to auscultation bilaterally?? Abdomen: Soft and non-tender. Normoactive bowel sounds. Skin: Skin warm and dry.? Normal skin color.?L axillary abscess 5cm X 2cm since surrounding erythema and axillary adenopathy Extremities: No lower extremity edema.? Neuro: Moves all extremities spontaneously. Sensation intact bilaterally. No focal neuro deficits. Ambulates with normal steady gait. Course Course Course Narrative: This is a Rapid Medical Examination (RME) performed by Lissett Vera PA-C in triage. Full HPI, ROS, assessment and treatment plan per primary provider in the Main ED. 33 yo female hx of IVDU here for eval of multiple abscess to left axilla x3 weeks with assoc subjective fevers. reports popping it last week. admits to regular IVDU, injects fentanyl. last used today. denies injecting into axilla. + afebrile, tachycardic in triage. one visible abscess w/ pointing and drainage. other abscess covered w/ bandage. Plan: labs, lactic, BC, further physical exam in main ED Medications Administered Discontinued Medications Generic Name Dose Route Start Last Admin Trade Name Edgar PRN Reason Stop Dose Admin Cephalexin HCl 500 mg 11/19/23 22:43 11/19/23 23:19 Cephalexin 500 Mg Capsule PO 11/19/23 22:44 500 mg ONCE ONE Administration Doxycycline Monohydrate 100 mg 11/19/23 22:43 11/19/23 23:19 Doxycycline Monohydrate 100 Mg Capsule PO 11/19/23 22:44 100 mg ONCE ONE Administration Lidocaine HCl 5 ml 11/19/23 22:43 11/19/23 23:20 Lidocaine Hcl 1 % Mpf 5 Ml Vial SUBCUT 11/19/23 22:44 5 ml ONCE ONE Administration Morphine Sulfate 2 mg 11/20/23 00:51 11/20/23 00:57 Morphine Sulfate 2 Mg/Ml Cartridge IM 11/20/23 00:52 2 mg ONCE ONE Administration Protocol Procedures Abscess I/D Site: other (Axillary) Side (if applicable): left Local Anesthetic: lidocaine 1% Amount of anesthesia used (mL): 5 Technique: incised with blade Irrigation: Yes Packing used?: none Complications: pain Medical Decision Making Medical Decision Making [facility] Narrative: Patient is a 33-year-old female to the emergency department for evaluation of a left axillary abscess, exam findings as per PE portion of this note, as associated lymphadenopathy and surrounding cellulitis. Incision and drainage as per procedural portion of this note. CBC is without leukocytosis, has a mild normocytic anemia that does not meet transfusion criteria, mild thrombocytosis. No lactic acidosis, blood cultures were obtained. Not consistent with sepsis at this time. HCG is negative. Incision and drainage as per procedural portion of this note, did have pain associated with this for which she received morphine 2 mg IM procedure. Instructed for return in 3 days for re-evaluation. All questions answered. Stable for discharge Differential Diagnosis Differential Diagnoses: The differential diagnosis associated with the presentation includes (See narrative above) Admission/Observation Consideration of admission/observation: Escalation of care including admission/observation considered (See narrative above) Lab Data [facility] Lab Attestation statement: I reviewed the patient's lab results. (Narrative above) 11/19/23 16:32 11/19/23 16:33 Labs: Lab Results 11/19/23 11/19/23 Range/Units 16:32 16:33 WBC 8.5 (4.8-10.8) X10*3/uL RBC 3.83 L (4.20-5.50) X10*6/uL Hgb 11.8 L (12.0-16.0) g/dl Hct 35.0 L (37.0-47.0) % MCV 91.4 (80.0-98.0) fL MCH 30.8 (27.0-33.0) pg MCHC 33.7 (31.0-35.0) g/dl RDW 13.6 (11.0-16.0) % Plt Count 430 H (160-400) X10*3/uL MPV 8.7 L (9.4-12.3) fL Immature Gran % (Auto) 0.2 (0.0-0.4) % Neut % (Auto) 77.6 H (45-73) % Lymph % (Auto) 15.1 L (20-40) % [place] % (Auto) 6.1 (2-11) % Eos % (Auto) 0.4 (0-4) % Baso % (Auto) 0.6 (0-2) % Lymph # (Auto) 1.3 (1.2-4.9) X10*3/uL [place] # (Auto) 0.5 (0.1-1.2) X10*3/uL Eos # (Auto) 0.0 (0.0-0.4) X10*3/uL Baso # (Auto) 0.1 (0.0-0.2) X10*3/uL Abs Immat Gran (auto) 0.02 (0.00-0.03) X10*3/uL Absolute Neuts (auto) 6.6 (2.0-8.3) x10*3/uL Absolute Nucleated RBC 0.000 (0.0-0.012) X10*3/uL Nucleated RBC % (auto) 0.0 (0.0-0.2) /100WBC Sodium 140 (135-145) mmol/L Potassium 3.1 L (3.3-5.1) mmol/L Chloride 103 (96-108) mmol/L Carbon Dioxide 27 (22-29) mmol/L Anion Gap 13 (12-20) BUN 8 L (9-16) mg/dL Creatinine 0.77 (0.5-1.4) mg/dL Estim Creat Clear Calc 91.7 Estimated GFR > 60 Random Glucose 116 H (60-115) mg/dL Lactic Acid 1.4 (0.5-2.0) mmol/L Calcium 8.9 (8.4-10.2) mg/dL Magnesium 2.1 (1.6-2.6) mg/dL Total Bilirubin 0.3 (0.0-1.0) mg/dL AST 16 (5-31) U/L ALT 11 (0-31) U/L Alkaline Phosphatase 80 (39-117) U/L Total Protein 7.3 (6.5-8.0) g/dL Albumin 3.9 (3.5-5.0) g/dL Beta HCG, Quant < 2 mIU/mL Independent Historian Clinical information obtained from an independent historian. History obtained from or confirmed by: Spouse External Record Review External record reviewed: Outpatient record Prescription Management I considered prescription management with: Pain Medication and Antibiotic Discharge Plan Discharge Clinical Impression: Abscess of axilla, left Patient Disposition: Home, Self-Care Instructions: Abscess Follow-up (ED), Abscess Incision and Drainage (DC) Additional Instructions: Apply warm moist compresses to the area for 10-15 minutes 3-4 times daily. Gently massage around the area to help facilitate any additional drainage Complete the entire course of antibiotics as prescribed, do not stop taking them earlier skipped any doses. There are 2 antibiotics has been sent to your pharmacy Keflex and doxycycline. On doxycycline, do not take pills immediately before going to bed and swallow pills with plenty of water. Avoid direct sunlight, iron, antacids, and Pepto Bismol. Call your provider if you develop new ringing in your ears, new problems hearing, dizziness, difficulty swallowing, rash, abdominal discomfort, nausea, or diarrhea.? Return in 3 days to have the abscess re-evaluated, you may return sooner if you develop new or worsening symptoms or concerns such as fevers, shaking chills, increase swelling pain redness. Prescriptions: New doxycycline hyclate 100 mg capsule 100 mg PO BID Qty: 13 0RF cephalexin 500 mg capsule 500 mg PO QID Qty: 27 0RF ibuprofen 600 mg tablet 600 mg PO Q8H PRN (Reason: pain) Qty: 30 0RF No Action levofloxacin 750 mg tablet 750 mg PO DAILY 7 Days Qty: 7 0RF clindamycin HCl 300 mg capsule 300 mg PO Q6H 7 Days Qty: 28 0RF chlorhexidine gluconate [Peridex] 0.12 % mouthwash 15 ml buccal BID Qty: 473 0RF valacyclovir [Valtrex] 1 gram tablet 1,000 mg PO BID Qty: 14 0RF ibuprofen 600 mg tablet 600 mg PO Q8H PRN (Reason: fever or pain) Qty: 30 0RF clindamycin HCl 300 mg capsule 300 mg PO Q6H Qty: 40 0RF Referrals: Cathy Tavera MD [Primary Care Provider] - Interventions: ED Discharge Assessment Last Done: 11/20/23 01:17 Discharge Date/Time: 11/20/23 01:20 Print Language: Malawian
[2023-11-19 16:41] LABS: MANUAL DIFF FLAG NO
[2023-11-19 16:43] LABS: Basophils Absolute Auto 0.1 X10*3/uL (0.0-0.2); Basophils Percent Auto 0.6 % (0-2); Eosinophils Percent Auto 0.4 % (0-4); Hemoglobin 11.8 g/dl (12.0-16.0); Imm Gran Abs Auto 0.02 X10*3/uL (0.00-0.03); Imm Gran Pct Auto 0.2 % (0.0-0.4); Lymphocytes Absolute Auto 1.3 X10*3/uL (1.2-4.9); Lymphocytes Percent Auto 15.1 % (20-40); Mean Corpuscular HGB Conc 33.7 g/dl (31.0-35.0); Mean Corpuscular Hemoglobin 30.8 pg (27.0-33.0); Mean Corpuscular Volume 91.4 fL (80.0-98.0); Mean Platelet Volume 8.7 fL (9.4-12.3); Monocytes Absolute Auto 0.5 X10*3/uL (0.1-1.2); Monocytes Percent Auto 6.1 % (2-11); Neutrophils Absolute Auto 6.6 x10*3/uL (2.0-8.3); Neutrophils Percent Auto 77.6 % (45-73); Platelet Count 430 X10*3/uL (160-400); Red Blood Count 3.83 X10*6/uL (4.20-5.50); Red Cell Distribution Width 13.6 % (11.0-16.0); White Blood Count 8.5 X10*3/uL (4.8-10.8)
[2023-11-19 16:59] LABS: Lactic Acid 1.4 mmol/L (0.5-2.0)
[2023-11-19 17:08] LABS: HCG Quantitative < 2 mIU/mL
[2023-11-19 17:22] LABS: Alanine Aminotransferase 11 U/L (0-31); Albumin Level 3.9 g/dL (3.5-5.0); Alkaline Phosphatase 80 U/L (39-117); Anion Gap 13 (12-20); Aspartate Amino Transferase 16 U/L (5-31); Bilirubin Total 0.3 mg/dL (0.0-1.0); Blood Urea Nitrogen 8 mg/dL (9-16); Calcium 8.9 mg/dL (8.4-10.2); Carbon Dioxide 27 mmol/L (22-29); Chloride 103 mmol/L (96-108); Creatinine Clr Calc Pharmacy 91.7; Estimated Glomerular Filt Rate > 60; Glucose Random 116 mg/dL (60-115); Magnesium 2.1 mg/dL (1.6-2.6); Potassium 3.1 mmol/L (3.3-5.1); Sodium 140 mmol/L (135-145); Total Protein 7.3 g/dL (6.5-8.0)
[2023-11-19 21:52] VITALS: BP 107/71; PULSE 77; RESP 15; TEMP 36.4; O2SAT 95
--- NOTE | 2023-11-19 21:57 | PC.NURSE ---
bandage changed in left axilla region with green purulent drainage present.
[2023-11-19 22:09] VITALS: BP 97/62; PULSE 72; RESP 17; TEMP 36.4; O2SAT 95
[2023-11-19] MEDS: cephALEXin 500 MG CAPSULE PO (23:19)
[2023-11-19] MEDS: Doxycycline Monohydrate 100 MG CAPSULE PO (23:19)
[2023-11-19] MEDS: Lidocaine HCl 1 % MPF 5 ML VIAL SUBCUT (23:20)
[2023-11-20] MEDS: Morphine Sulfate 2 MG/ML CARTRIDGE IM (00:57)
--- NOTE | 2023-11-20 01:11 | PC.NURSE ---
patient cleansed and bandages applied to open areas that are draining. Extra bandages given to patient and instructed to keep clean and dry and apply new bandage as necessary
[2023-11-20 01:17] VITALS: BP 120/86; PULSE 83; RESP 16; TEMP 36.3; O2SAT 97
== END 2023-11-20 01:20 | disposition home or self-care (01) ==
PROVIDERS: Physician Assistant Medical; Emergency Provider Emergency Medicine; PCP Family Medicine
DX: L02.412 Cutaneous abscess of left axilla (principal); R00.0 Tachycardia, unspecified; F19.20 Other psychoactive substance dependence, uncomplicated; Z79.899 Other long term (current) drug therapy
CPT/HCPCS: 10060; 36415; 80053; 83605; 83735; 84702; 85025; 87040; 96372; 99284; J2003; J2270

== ENCOUNTER 2023-11-24 20:40 | Emergency (ER) | payer MEDICAID, SELFPAY ==
[2023-11-24 20:58] VITALS: BP 138/96; PULSE 91; RESP 16; TEMP 36.2; O2SAT 97; BMI 25.0
--- NOTE | 2023-11-24 21:01 | ED.GENADULT ---
HPI - General Adult General Chief complaint: Skin/Abscess/Foreign Body Stated complaint: seen for abcess recently History of Present Illness HPI narrative: Patient left before completion of treatment can be done by ED provider. Related Data Previous Rx's ?Medication ?Instructions ?Recorded clindamycin HCl 300 mg capsule 300 mg PO Q6H #40 caps 04/10/21 levofloxacin 750 mg tablet 750 mg PO DAILY 7 days #7 tabs 01/07/22 chlorhexidine gluconate 0.12 % 15 ml buccal BID #473 mL 04/30/22 mouthwash (Peridex) clindamycin HCl 300 mg capsule 300 mg PO Q6H 7 days #28 caps 04/30/22 ibuprofen 600 mg tablet 600 mg PO Q8H PRN fever or pain 04/30/22 #30 tabs valacyclovir 1 gram tablet 1,000 mg PO BID #14 tabs 04/30/22 (Valtrex) cephalexin 500 mg capsule 500 mg PO QID #27 caps 11/20/23 doxycycline hyclate 100 mg capsule 100 mg PO BID #13 caps 11/20/23 ibuprofen 600 mg tablet 600 mg PO Q8H PRN pain #30 tabs 11/20/23 Allergies Allergy/AdvReac Type Severity Reaction Status Date / Time No Known Allergies Allergy Verified 11/24/23 21:00 [No Known Allergies*] PMFSH Past Medical History Medical History Polysubstance (including opioids) dependence with physiol dependence Asthma Hypothyroid Social History Social History Alcohol intake: current Alcohol intake frequency: a few times a week Substance Use Type: Crack/Cocaine and Other Advance Directives: No Advance Directives Information Provided: Yes Physical Exam ED Vital Signs: Vital Signs - 24 hr 11/24/23 20:58 Temperature 97.1 F Pulse Rate 91 Respiratory Rate 16 Blood Pressure 138/96 H Pulse Oximetry 97 Oxygen Delivery Method Room Air BMI result Body Mass Index 25.0 Course Course Course Narrative: RME: DOne by MARIA ESTHER Lovett. 33-year-old female presents to ED for left axilla abscess check. Patient denies any increase or worsening of abscess. Patient to be evaluated in the ED. Discharge Plan Discharge Clinical Impression: Abscess of skin or subcutaneous tissue Patient Disposition: Left W/O Completing Treatment Prescriptions: No Action levofloxacin 750 mg tablet 750 mg PO DAILY 7 Days Qty: 7 0RF clindamycin HCl 300 mg capsule 300 mg PO Q6H 7 Days Qty: 28 0RF chlorhexidine gluconate [Peridex] 0.12 % mouthwash 15 ml buccal BID Qty: 473 0RF valacyclovir [Valtrex] 1 gram tablet 1,000 mg PO BID Qty: 14 0RF ibuprofen 600 mg tablet 600 mg PO Q8H PRN (Reason: fever or pain) Qty: 30 0RF clindamycin HCl 300 mg capsule 300 mg PO Q6H Qty: 40 0RF doxycycline hyclate 100 mg capsule 100 mg PO BID Qty: 13 0RF cephalexin 500 mg capsule 500 mg PO QID Qty: 27 0RF ibuprofen 600 mg tablet 600 mg PO Q8H PRN (Reason: pain) Qty: 30 0RF Discharge Date/Time: 11/25/23 01:03
== END 2023-11-25 01:03 | disposition left against medical advice (07) ==
PROVIDERS: Emergency Provider Emergency Medicine; PCP Family Medicine
DX: L02.412 Cutaneous abscess of left axilla (principal)
CPT/HCPCS: 99281

== ENCOUNTER 2024-03-29 15:12 | Emergency (ER) | payer MEDICAID, SELFPAY | END 2024-03-29 17:38 | disposition left against medical advice (07) | PROVIDERS: Emergency Provider Emergency Medicine | DX: Z53.21 Procedure and treatment not carried out due to patient leaving prior to being seen by health care provider (principal); R50.9 Fever, unspecified; R05.9 Cough, unspecified; R09.81 Nasal congestion ==

== ENCOUNTER 2024-05-16 14:27 | Emergency (ER) | payer MEDICAID, SELFPAY ==
[2024-05-16] VITALS (7 sets, daily range): BP systolic 103–140; BP diastolic 69–98; PULSE 77–128; RESP 16–20; TEMP 37–38.3; O2SAT 94–98; BMI 22.7
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
--- NOTE | ~2024-05-16 | CT_ITS ---
CLINICAL HISTORY: L CP, tachycardic, SOB, IVDU CT angiography chest with contrast. 3D Postprocessing. Comparison: None Findings: The heart size is normal. RV/LV ratio is normal. Unremarkable thoracic aorta and great vessels. No aneurysm. No acute pulmonary embolus. Several nodular opacities in the lingula and left lung base and hazy opacities. 6 mm noncalcified pulmonary nodule in right upper lobe on image 53/137 series 5. Bilateral dependent atelectasis. No pleural effusion or pneumothorax. Small bilateral hilar nodes and subcarinal mediastinal nodes nonspecific could be reactive. Thyroid grossly within normal limits. The upper abdomen demonstrates no acute process No acute fractures. Multilevel degenerative disc disease. IMPRESSION: 1. No pulmonary emboli. 2. Nodular opacities in the lingula and left lung base with hazy opacities may represent pneumonia but nonspecific. 6 mm right upper lobe nodule. Small bilateral hilar and subcarinal mediastinal nodes could be reactive but nonspecific. A short-term follow-up is recommended after appropriate treatment to document resolution and ensure no underlying mass. This document has been electronically signed by: Julia Hansen MD on 05/16/2024 18:57:58
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
--- NOTE | 2024-05-16 14:29 | ECG_ITS ---
Test Reason : CHEST PAIN Blood Pressure : */* mmHG Vent. Rate : 123 BPM Atrial Rate : 123 BPM P-R Int : 128 ms QRS Dur : 74 ms QT Int : 286 ms P-R-T Axes : 51 57 24 degrees QTcB Int : 409 ms Sinus tachycardia Nonspecific ST and T wave abnormality Abnormal ECG When compared with ECG of 26-Aug-2021 22:03, Vent. rate has increased by 77 bpm lateral T inversion Referred By: Generic ED Physician Electronically Signed By: SANJUANA HUITRON
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
--- NOTE | 2024-05-16 16:13 | PC.NURSE ---
Multiple nurses and techs attempted to draw cultures/ labs without success. Dr. Schuler aware. Boom Cat Operator coming to place iv guided IV
[2024-05-16 16:50] LABS: MANUAL DIFF FLAG NO
[2024-05-16 16:52] LABS: Basophils Percent Auto 0.2 % (0-2); Hematocrit 40.9 % (37.0-47.0); Hemoglobin 13.9 g/dl (12.0-16.0); Imm Gran Abs Auto 0.25 X10*3/uL (0.00-0.03); Imm Gran Pct Auto 1.3 % (0.0-0.4); Lymphocytes Absolute Auto 1.2 X10*3/uL (1.2-4.9); Lymphocytes Percent Auto 6.1 % (20-40); Mean Corpuscular Hemoglobin 31.1 pg (27.0-33.0); Mean Corpuscular Volume 91.5 fL (80.0-98.0); Mean Platelet Volume 8.6 fL (9.4-12.3); Monocytes Absolute Auto 1.1 X10*3/uL (0.1-1.2); Monocytes Percent Auto 5.4 % (2-11); Neutrophils Absolute Auto 17.2 x10*3/uL (2.0-8.3); Platelet Count 272 X10*3/uL (160-400); Red Blood Count 4.47 X10*6/uL (4.20-5.50); Red Cell Distribution Width 12.7 % (11.0-16.0); White Blood Count 19.7 X10*3/uL (4.8-10.8)
[2024-05-16] MEDS: 0.9 % Sodium Chloride 1,000 ML 999 ML IVCONT ×2 (16:54→17:32)
[2024-05-16] MEDS: Ketorolac Tromethamine 30 MG/ML VIAL IVPUSH (16:54)
[2024-05-16 16:58] LABS: Appearance Urine Cloudy; Color Urine Dark Yellow; Glucose Urine UA Negative (Negative); Leukocyte Esterase Urine Trace (Negative); Nitrite Urine Negative (Negative); PH 5.5 (5.0-9.0); Specific Gravity - Urine >= 1.030 (1.005-1.025); UMIC TRIGGER UACC YES; Urine Blood Trace (Negative); Urine Ketones Trace mg/dL (Negative); Urine Protein 100 (2+) mg/dL (Neg-Trace)
[2024-05-16 17:01] LABS: Influenza A PCR NEGATIVE (Negative); Influenza B PCR NEGATIVE (Negative); Resp Syncy Virus RNA Qual PCR NEGATIVE (Negative); SARS COV2 PCR INHOUSE NEGATIVE (Negative)
[2024-05-16 17:03] LABS: Bacteria Urine None Seen (None Seen); UACC Culture Trigger YES
[2024-05-16 17:04] LABS: Ethanol < 10 mg/dL
[2024-05-16 17:07] LABS: Lactic Acid 1.5 mmol/L (0.5-2.0)
[2024-05-16 17:19] LABS: Troponin-I High Sensitivity < 2.7 ng/L (<3.5-17.0)
[2024-05-16] MEDS: Piperacillin Sodium/Tazobactam 3.375 GM in 0.9 % Sodium Chloride 50 ML IV (17:20)
[2024-05-16 17:25] LABS: Alanine Aminotransferase 10 U/L (0-31); Albumin Level 3.8 g/dL (3.5-5.0); Alkaline Phosphatase 122 U/L (39-117); Anion Gap 11 (12-20); Aspartate Amino Transferase 32 U/L (5-31); Bilirubin Direct 0.2 mg/dL (0.0-0.5); Blood Urea Nitrogen 16 mg/dL (9-16); C Reactive Protein 33.36 mg/dL (< or = 0.50); Calcium 9.2 mg/dL (8.4-10.2); Carbon Dioxide 27 mmol/L (22-29); Chloride 101 mmol/L (96-108); Creatinine Clr Calc Pharmacy 87.5; Estimated Glomerular Filt Rate > 60; Glucose Random 108 mg/dL (60-115); Magnesium 1.6 mg/dL (1.6-2.6); Potassium 3.7 mmol/L (3.3-5.1); Sodium 135 mmol/L (135-145); Total Protein 7.3 g/dL (6.5-8.0)
[2024-05-16] MEDS: vancomycin HCL 1,500 MG in 0.9 % Sodium Chloride 500 ML 333.33 MG IV (17:44)
--- NOTE | 2024-05-16 17:51 | PC.NURSE ---
Security looked through patients personal belongings. No contraband found
[2024-05-16 17:59] LABS: UPreg QC Valid YES; Urine Pregnancy NEGATIVE (NEGATIVE)
[2024-05-16] MEDS: Acetaminophen 325 MG TABLET 975 MG PO (18:03)
[2024-05-16] MEDS: Morphine Sulfate 4 MG/ML CARTRIDGE IVPUSH (18:03)
[2024-05-16 18:05] LABS: Erythrocyte Sedimentation Rate 39 MM/HR (0-20)
[2024-05-16 18:07] LABS: Bilirubin Total 0.4 mg/dL (0.0-1.0)
--- NOTE | 2024-05-16 18:08 | PC.NURSE ---
Patient requesting to leave . Dr. Schuler at bedside reviewed the risks of leaving ama, patient agreeable to stay until CT scan is obtained
[2024-05-16] MEDS: iohexoL 350 MG/ML 100 ML INFUS..BTL IV (18:14)
--- OUTSIDE RECORDS SUMMARY | 2024-05-16 18:57 | XMS_ITS | Clinical Summary ---
Author Organization [facility] ity Address [address] [place] [address] Care Team Providers Care Customer Assistance Associate Name Role Phone Maya Mendiola MD Primary Care Provi roberto Social History Tobacco Use Types Packs/Day Years Used Date Smoking Tobacco: Never Assessed Comments Unknown Sex and Gender Information Value Date Recorded Sex Assigned at Not on file Legal Sex Female 5:04 AM EST Gender Identity Not on file Sexual Orientation Not on file Plan of Treatment Health Maintenance Due Date Last Done Comments DTaP,Tdap,and Td Vaccines (1 - Tdap) 04/24/2007 Hepatitis B Vaccines (1 of 3 - 19+ 3-dose series) 04/24/2007 Cervical Cancer Screening: P ap Smear 2009 Depression Screening 01/18/2022 HIV Screening 01/18/2022 Hepatitis C Screening 01/18/2022 Social Influencers of Health Screening 01/18/2022 COVID-19 Vaccine ( - 2023-2 5 season) 2023 Influenza Vaccine (#1) 2023 HIB Vaccines Aged Out No longer eligi ble based on patient's age to complete this topic HPV Vaccines Aged Out No longer eligi ble based on patient's age to complete this topic Hepatitis A Vaccines Aged Out No long er eligible based on patient's age to complete this topic IPV Vaccines Aged Out No longer eligi ble based on patient's age to complete this topic MMR Vaccines Aged Out No longer eligi ble based on patient's age to complete this topic Meningococcal ACWY Vaccine Aged Out N o longer eligible based on patient's age to complete this topic Meningococcal B Vacine Aged Out No lo nger eligible based on patient's age to complete this topic Pneumococcal Vaccine: Pediat rics (0 to 5 Years) and At-Risk Patients (6 to 64 Years) Aged Out No longer eligible b ased on patient's age to complete this topic RSV Immunization Patients Un roberto 20 months Aged Out No longer eligible b ased on patient's age to complete this topic Varicella Vaccines Aged Out No longer eligible based on patient's age to complete this topic Care Teams Customer Assistance Associate Relationship Specialty Start Date End Date Maya Mendiola MD [address] [place] [address] PCP - General Internal Medicine 05/31/18
--- NOTE | 2024-05-16 19:33 | PC.NURSE ---
Assumed care for pt. Pt states wanting to leave AMA as pt has things to settle at home before being admitted for treatment. MD at bedside. Pt agrees to return tomorrow for treatment. Risk of leaving AMA discussed with pt by this quality analyst/technical writer and the MD. Pt verbally states understating the risks and expresses a desire to leave. Pt signed AMA form. U/S IV line removed with no complication.
[2024-05-16 22:30] LABS: Amphetamine Screen Urine POSITIVE (Not Detect); Barbiturates, Urine Not Detected (Not Detect); Benzodiazepines Screen Urine Not Detected (Not Detect); Buprenorphine Scr Not Detected (Not Detect); Cannabinoid Screen Urine Not Detected (Not Detect); Cocaine Screen Urine POSITIVE (Not Detect); Fentanyl, urine POSITIVE (Not Detect); Methadone Screen, Urine Not Detected (Not Detect); Opiate Screen Urine POSITIVE (Not Detect); Oxycodone Screen Urine Not Detected (Not Detect); Phencyclidine Screen Urine Not Detected (Not Detect)
== END 2024-05-16 19:36 | disposition left against medical advice (07) ==
PROVIDERS: Physician Assistant Medical; Emergency Provider Emergency Medicine
DX: J18.9 Pneumonia, unspecified organism (principal); L02.415 Cutaneous abscess of right lower limb; R07.9 Chest pain, unspecified; R06.02 Shortness of breath; R50.9 Fever, unspecified; R00.0 Tachycardia, unspecified; F10.20 Alcohol dependence, uncomplicated; Y90.0 Blood alcohol level of less than 20 mg/100 ml; F19.20 Other psychoactive substance dependence, uncomplicated; F11.20 Opioid dependence, uncomplicated; J45.909 Unspecified asthma, uncomplicated; E03.9 Hypothyroidism, unspecified; Z03.818 Encounter for observation for suspected exposure to other biological agents ruled out; Z53.29 Procedure and treatment not carried out because of patient's decision for other reasons
CPT/HCPCS: 0241U; 70450; 71275; 72125; 80048; 80076; 80307; 81001; 81003; 81025; 83605; 83735; 84484; 85025; 85652; 86140; 87040; 87086; 87147; 87205; 93005; 96365; 96375; 99285; J1885; J2270; J2543; J3371; Q9967

== ENCOUNTER → 2024-05-16 14:29 | Outpatient (BNV) | payer MEDICAID, SELFPAY | PROVIDERS: Emergency Provider Emergency Medicine; Visit Provider Internal Medicine | DX: R00.0 Tachycardia, unspecified (principal) | CPT/HCPCS: 93010 ==

== ENCOUNTER → 2024-05-16 15:02 | Outpatient (BNV) | payer MEDICAID, SELFPAY | PROVIDERS: Emergency Provider Emergency Medicine; Visit Provider Radiology Diagnostic Radiology | DX: R91.8 Other nonspecific abnormal finding of lung field (principal); L02.91 Cutaneous abscess, unspecified | CPT/HCPCS: 70450; 71275; 72125 ==

== ENCOUNTER 2024-05-17 10:03 | Inpatient (IN) | payer MEDICAID, SELFPAY ==
[2024-05-17 10:05] VITALS: BP 132/80; PULSE 112; RESP 20; TEMP 37.1; O2SAT 98; BMI 23.8
[2024-05-17 12:12] VITALS: BP 129/86; PULSE 100; RESP 18; TEMP 37.2; O2SAT 97
--- NOTE | 2024-05-17 12:12 | ED_ITS ---
HPI - SOB/Dyspnea General Chief Complaint: Dyspnea Stated Complaint: left ama 05/16, Wants To Be Admitted Time Seen by Provider: 05/17/24 12:37 Source: patient, RN notes reviewed and old records reviewed Mode of arrival: ambulatory Limitations: no limitations History of Present Illness ED Provider: Ada HPI Narrative: Patient is a 34-year-old female with pmhx of IVDA with abscesses, recently presented to the ED with complaint of left sided chest pain, was diagnosed with pneumonia and admission recommended, but left AMA presenting today with ongoing pain, states she is agreeable to admission today. CTA chest showed no evidence of PE. Blood cultures positive for gram positive cocci in chains in 2/2 sets. She reports subjective fevers, sweats/chills. MD elicited complaint: pain with inspiration Onset (ago): day(s) Related Data Previous Rx's ?Medication ?Instructions ?Recorded clindamycin HCl 300 mg capsule 300 mg PO Q6H #40 caps 04/10/21 levofloxacin 750 mg tablet 750 mg PO DAILY 7 days #7 tabs 01/07/22 chlorhexidine gluconate 0.12 % 15 ml buccal BID #473 mL 04/30/22 mouthwash (Peridex) clindamycin HCl 300 mg capsule 300 mg PO Q6H 7 days #28 caps 04/30/22 ibuprofen 600 mg tablet 600 mg PO Q8H PRN fever or pain 04/30/22 #30 tabs valacyclovir 1 gram tablet 1,000 mg PO BID #14 tabs 04/30/22 (Valtrex) cephalexin 500 mg capsule 500 mg PO QID #27 caps 11/20/23 doxycycline hyclate 100 mg capsule 100 mg PO BID #13 caps 11/20/23 ibuprofen 600 mg tablet 600 mg PO Q8H PRN pain #30 tabs 11/20/23 cefuroxime axetil 500 mg tablet 500 mg PO BID #14 tabs 05/16/24 doxycycline hyclate 100 mg capsule 100 mg PO BID #14 caps 05/16/24 Allergies Allergy/AdvReac Type Severity Reaction Status Date / Time No Known Allergies Allergy Verified 05/17/24 10:06 [No Known Allergies*] Review of Systems 2 Review of Systems: As per HPI Yes all other systems are reviewed and are negative Constitutional: Constitutional: Reports as per HPI PMFSH Past Medical History Medical History Alcohol abuse Polysubstance (including opioids) dependence with physiol dependence Asthma Hypothyroid Social History Social History Alcohol intake: current Alcohol intake frequency: 3 or more drinks per day Alcohol type: hard liquor Substance Use Type: Crack/Cocaine and Heroin Advance Directives: No Advance Directives Information Provided: Yes Do you have a plan to hurt others: No Plan Physical Exam 2 Vital Signs: Vital Signs: Last Vital Signs Temp 99 F 05/17/24 12:12 Pulse 100 05/17/24 12:12 Resp 18 05/17/24 12:12 BP 129/86 05/17/24 12:12 Pulse Ox 97 05/17/24 12:12 O2 Del Method Room Air 05/17/24 12:12 BMI result Body Mass Index 23.8 Vital signs have been reviewed and appear to be correct. Blood pressure normal. Heart rate normal. Respiratory rate normal. Temperature normal. Oxygen saturation normal. Const: General: cooperative and no acute distress O rientation/consciousness: oriented to person, oriented to place, oriented to time and patient oriented x3 Limitations: no limitations HEENT: Head: Yes normocephalic and Yes atraumatic Ears: external ears normal General nose exam: Normal external nose present Face and sinus: Yes face symmetric Mouth: oropharynx normal and moist mucous membranes Throat: Yes uvula midline Eyes: Pupils: Equal, round and reactive pupils present Neck: Neck: Yes normal visual inspection and Yes supple Resp: Effort & Inspection: normal respiratory effort and able to speak in complete sentences Auscultation: clear to auscultation bilaterally Cardio: Rate: regular rate Rhythm: regular rhythm Heart sounds: S1 normal heart sound present and S2 normal heart sound present GI: Palpation (GI): Soft to palpation and nontender Auscultation: n ormoactive bowel sounds : General: Yes no CVA tenderness Back/Spine/Pelvis: Back: no CVA tenderness Skin: General skin exam: elasticity normal and turgor normal Neuro: General: oriented to person, oriented to place, oriented to time, patient oriented x3, moves all extremities, no focal motor deficits and CN's II- XI intact bilaterally Cranial nerves: Yes Equal, round and reactive pupils present Cognition (Neuro): normal cognition Extrem: General: Yes full ROM, Yes no pedal edema and Yes no calf tenderness Right lower extremity: hip/thigh Details: other (abscess with erythema/warmth posterior thigh) Course Course Course Narrative: 34 yo female with PMH of IVDA prior hx of abscess - she was seen yesterday 05/16 for dyspnea and L lung pain dx with pneumonia and she already has 2/2 GPC in chains from yesterdays. Blood culture. She is interested in starting methadone. She was not able to fill any abx after leaving AMA. At this time would repeat labs, cultures, lactic acid and start on ceftriaxone/vanco/40mg methadone. She agrees to stay this time. No prior hx of endocarditis. CTA no PE yesterday this is a RAPID medical screening exam the rest of the history and physical exam is to be done by the main provider. MANUEL 05/17/24 1214pm Medications Administered Discontinued Medications Generic Name Dose Route Start Last Admin Trade Name Freq PRN Reason Stop Dose Admin Ceftriaxone Sodium 2 gm 05/17/24 12:31 05/17/24 13:11 Ceftriaxone Sodium 2 Gm Vial IVPUSH 05/17/24 12:32 2 gm ONCE ONE Administration Ketorolac Tromethamine 15 mg 05/17/24 13:19 05/17/24 13:36 Ketorolac Tromethamine 15 Mg/Ml Vial IVPUSH 05/17/24 13:20 15 mg ONCE ONE Administration Methadone HCl 40 mg 05/17/24 12:31 05/17/24 12:58 Methadone Hcl 20 Mg/2 Ml Oral.Conc PO 05/17/24 12:32 40 mg ONCE ONE Administration Medical Decision Making Medical Decision Making [facility] Narrative: Patient is a 34-year-old female with pmhx of IVDA with abscesses, recently presented to the ED with complaint of left sided chest pain, was diagnosed with pneumonia and admission recommended, but left AMA presenting today with ongoing pain, states she is agreeable to admission today. On exam patient is awake, A+Ox3, VS WNL, afebrile, normal neurological exam without focal deficits, physical exam findings as above. Given reported symptoms and physical exam findings, initial differential includes but is not limited to pneumonia, bacteremia. Do not suspect sepsis at this time (13:00). Labs notable for leukocytosis, normal lactic, mild hypokalemia. PO potassium ordered. CTA chest obtained yesterday, 05/16/24, notable for no evidence of PE, lingular and left basilar opacities as well as 6mm RUL nodule. My interpretation is in agreement with the radiologist's interpretation. Case discussed with Dr. Bravo who accepts admission. Differential Diagnosis Differential Diagnoses: The differential diagnosis associated with the presentation includes As per [facility] Admission/Observation Consideration of admission/observation: Escalation of care including admission/observation considered Consult Healthcare Provider Management of the patient was discussed with: Hospitalist Lab Data [facility] Lab Attestation statement: I reviewed the patient's lab results. As per [facility] 05/17/24 13:10 05/17/24 13:10 Labs: Lab Results 05/17/24 05/17/24 05/17/24 Range/Units 13:10 13:10 13:10 WBC 19.4 H (4.8-10.8) X10*3/uL RBC 4.29 (4.20-5.50) X10*6/uL Hgb 13.7 (12.0-16.0) g/dl Hct 39.6 (37.0-47.0) % MCV 92.3 (80.0-98.0) fL MCH 31.9 (27.0-33.0) pg MCHC 34.6 (31.0-35.0) g/dl RDW 12.9 (11.0-16.0) % Plt Count 271 (160-400) X10*3/uL MPV 8.8 L (9.4-12.3) fL Immature Gran % (Auto) 0.6 H (0.0-0.4) % Neut % (Auto) 89.8 H (45-73) % Lymph % (Auto) 5.4 L (20-40) % [place] % (Auto) 3.8 (2-11) % Eos % (Auto) 0.1 (0-4) % Baso % (Auto) 0.3 (0-2) % Lymph # (Auto) 1.0 L (1.2-4.9) X10*3/uL [place] # (Auto) 0.7 (0.1-1.2) X10*3/uL Eos # (Auto) 0.0 (0.0-0.4) X10*3/uL Baso # (Auto) 0.1 (0.0-0.2) X10*3/uL Abs Immat Gran (auto) 0.12 H (0.00-0.03) X10*3/uL Absolute Neuts (auto) 17.4 H (2.0-8.3) x10*3/uL Absolute Nucleated RBC 0.000 (0.0-0.012) X10*3/uL Nucleated RBC % (auto) 0.0 (0.0-0.2) /100WBC Sodium 138 (135-145) mmol/L Potassium 3.1 L (3.3-5.1) mmol/L Chloride 105 (96-108) mmol/L Carbon Dioxide 26 (22-29) mmol/L Anion Gap 10 L (12-20) BUN 11 (9-16) mg/dL Creatinine 0.67 0.67 (0.5-1.4) mg/dL Estim Creat Clear Calc 104.4 104.4 Estimated GFR > 60 Random Glucose (60-115) mg/dL Lactic Acid (0.5-2.0) mmol/L Calcium (8.4-10.2) mg/dL Total Bilirubin (0.0-1.0) mg/dL AST (5-31) U/L ALT (0-31) U/L Alkaline Phosphatase (39-117) U/L Troponin I High Sens (<3.5-17.0) ng/L Total Protein (6.5-8.0) g/dL Albumin (3.5-5.0) g/dL 05/17/24 Range/Units 13:10 WBC (4.8-10.8) X10*3/uL RBC (4.20-5.50) X10*6/uL Hgb (12.0-16.0) g/dl Hct (37.0-47.0) % MCV (80.0-98.0) fL MCH (27.0-33.0) pg MCHC (31.0-35.0) g/dl RDW (11.0-16.0) % Plt Count (160-400) X10*3/uL MPV (9.4-12.3) fL Immature Gran % (Auto) (0.0-0.4) % Neut % (Auto) (45-73) % Lymph % (Auto) (20-40) % [place] % (Auto) (2-11) % Eos % (Auto) (0-4) % Baso % (Auto) (0-2) % Lymph # (Auto) (1.2-4.9) X10*3/uL [place] # (Auto) (0.1-1.2) X10*3/uL Eos # (Auto) (0.0-0.4) X10*3/uL Baso # (Auto) (0.0-0.2) X10*3/uL Abs Immat Gran (auto) (0.00-0.03) X10*3/uL Absolute Neuts (auto) (2.0-8.3) x10*3/uL Absolute Nucleated RBC (0.0-0.012) X10*3/uL Nucleated RBC % (auto) (0.0-0.2) /100WBC Sodium (135-145) mmol/L Potassium (3.3-5.1) mmol/L Chloride (96-108) mmol/L Carbon Dioxide (22-29) mmol/L Anion Gap (12-20) BUN (9-16) mg/dL Creatinine (0.5-1.4) mg/dL Estim Creat Clear Calc Estimated GFR > 60 Random Glucose 98 (60-115) mg/dL Lactic Acid 1.6 (0.5-2.0) mmol/L Calcium 9.1 (8.4-10.2) mg/dL Total Bilirubin 0.4 (0.0-1.0) mg/dL AST 54 H (5-31) U/L ALT 19 (0-31) U/L Alkaline Phosphatase 122 H (39-117) U/L Troponin I High Sens < 2.7 (<3.5-17.0) ng/L Total Protein 7.2 (6.5-8.0) g/dL Albumin 3.5 (3.5-5.0) g/dL External Record Review External record reviewed: Inpatient record, Office record and Outpatient record Prescription Management I considered prescription management with: Antibiotic and Other Discharge Plan Discharge Prescriptions: No Action levofloxacin 750 mg tablet 750 mg PO DAILY 7 Days Qty: 7 0RF clindamycin HCl 300 mg capsule 300 mg PO Q6H 7 Days Qty: 28 0RF chlorhexidine gluconate [Peridex] 0.12 % mouthwash 15 ml buccal BID Qty: 473 0RF valacyclovir [Valtrex] 1 gram tablet 1,000 mg PO BID Qty: 14 0RF ibuprofen 600 mg tablet 600 mg PO Q8H PRN (Reason: fever or pain) Qty: 30 0RF clindamycin HCl 300 mg capsule 300 mg PO Q6H Qty: 40 0RF doxycycline hyclate 100 mg capsule 100 mg PO BID Qty: 13 0RF cephalexin 500 mg capsule 500 mg PO QID Qty: 27 0RF ibuprofen 600 mg tablet 600 mg PO Q8H PRN (Reason: pain) Qty: 30 0RF cefuroxime axetil 500 mg tablet 500 mg PO BID Qty: 14 0RF doxycycline hyclate 100 mg capsule 100 mg PO BID Qty: 14 0RF Print Language: [place]
--- NOTE | 2024-05-17 12:14 | ECG_ITS ---
Test Reason : QTC Blood Pressure : */* mmHG Vent. Rate : 103 BPM Atrial Rate : 103 BPM P-R Int : 128 ms QRS Dur : 76 ms QT Int : 324 ms P-R-T Axes : 55 62 41 degrees QTcB Int : 424 ms Sinus tachycardia Nonspecific T wave abnormality Abnormal ECG When compared with ECG of 16-May-2024 14:41, No significant change was found Referred By: Jasmin Estes Electronically Signed By: SANJUANA HUITRON
[2024-05-17] MEDS: methADONE HCl 20 MG/2 ML ORAL.CONC 40 MG PO (12:58)
[2024-05-17] MEDS: cefTRIAXone sodium 2 GM VIAL IVPUSH (13:11)
[2024-05-17 13:23] LABS: MANUAL DIFF FLAG NO
[2024-05-17 13:29] LABS: Basophils Absolute Auto 0.1 X10*3/uL (0.0-0.2); Basophils Percent Auto 0.3 % (0-2); Eosinophils Percent Auto 0.1 % (0-4); Hematocrit 39.6 % (37.0-47.0); Hemoglobin 13.7 g/dl (12.0-16.0); Imm Gran Abs Auto 0.12 X10*3/uL (0.00-0.03); Imm Gran Pct Auto 0.6 % (0.0-0.4); Lymphocytes Percent Auto 5.4 % (20-40); Mean Corpuscular HGB Conc 34.6 g/dl (31.0-35.0); Mean Corpuscular Hemoglobin 31.9 pg (27.0-33.0); Mean Corpuscular Volume 92.3 fL (80.0-98.0); Mean Platelet Volume 8.8 fL (9.4-12.3); Monocytes Absolute Auto 0.7 X10*3/uL (0.1-1.2); Monocytes Percent Auto 3.8 % (2-11); Neutrophils Absolute Auto 17.4 x10*3/uL (2.0-8.3); Neutrophils Percent Auto 89.8 % (45-73); Platelet Count 271 X10*3/uL (160-400); Red Blood Count 4.29 X10*6/uL (4.20-5.50); Red Cell Distribution Width 12.9 % (11.0-16.0); White Blood Count 19.4 X10*3/uL (4.8-10.8)
[2024-05-17] MEDS: Ketorolac Tromethamine 15 MG/ML VIAL IVPUSH (13:36)
[2024-05-17 13:44] LABS: Lactic Acid 1.6 mmol/L (0.5-2.0)
[2024-05-17 13:54] LABS: Creatinine Clr Calc Pharmacy 104.4; Estimated Glomerular Filt Rate > 60
[2024-05-17 14:00] LABS: Alanine Aminotransferase 19 U/L (0-31); Albumin Level 3.5 g/dL (3.5-5.0); Alkaline Phosphatase 122 U/L (39-117); Anion Gap 10 (12-20); Aspartate Amino Transferase 54 U/L (5-31); Bilirubin Total 0.4 mg/dL (0.0-1.0); Blood Urea Nitrogen 11 mg/dL (9-16); Calcium 9.1 mg/dL (8.4-10.2); Carbon Dioxide 26 mmol/L (22-29); Chloride 105 mmol/L (96-108); Creatinine Clr Calc Pharmacy 104.4; Estimated Glomerular Filt Rate > 60; Glucose Random 98 mg/dL (60-115); Potassium 3.1 mmol/L (3.3-5.1); Sodium 138 mmol/L (135-145); Total Protein 7.2 g/dL (6.5-8.0)
[2024-05-17 14:13] LABS: Troponin-I High Sensitivity < 2.7 ng/L (<3.5-17.0)
[2024-05-17] MEDS: Potassium Chloride Packet 20 MEQ PACKET 40 MEQ PO (14:53)
[2024-05-17 14:55] VITALS: BP 116/77; PULSE 90; RESP 16; O2SAT 95
--- OUTSIDE RECORDS SUMMARY | 2024-05-17 15:06 | XMS_ITS | Clinical Summary ---
Author Organization [facility] ity Address [address] [place] [address] Care Team Providers Care Radiologic Technologist Mammogram Name Role Phone Maya Mendiola MD Primary [...] Influencers of Health Screening 01/18/2022 COVID-19 Vaccine (2023-2 5 season) 2023 Influenza Vaccine (#1) 2023 [...] age to complete this topic Care Teams Radiologic Technologist Mammogram Relationship Specialty Start Date End Date Maya Medniola MD [address] [place] [address] PCP - General Internal Medicine 05/31/18
--- NOTE | 2024-05-17 15:10 | PM.IMHP ---
History of Present Illness Date of Service: 05/17/24 Chief Complaint: left chest pain, R thigh pain The patient is a 34-year-old female with a past medical history of reported seizures on gabapentin, hypothyroidism not on replacement for many years, active polysubstance abuse, heavy alcohol intake over the last month who presents to [facility] ED today, 1 day after leaving against medical advice. The patient reports left-sided chest pain which has been progressively increasing over the last 4 days prior to hospitalization. Reports a chronic cough. She reports pleuritic chest pain. She reports subjective fevers and chills. She reports generalized malaise. Patient reports polysubstance abuse including opiates as well as crack/cocaine. She reports injection use when using cocaine. She reports last use several days prior. She reports injecting in her right thigh with subsequent erythema and induration. Furthermore, the patient also endorses heavy alcohol use of 1 pt daily for the last month. In regards to her medical history, the patient reports that she is on gabapentin due to seizures and has been on it for nearly 10 years. She also reports a history of hypothyroidism and was previously on Synthroid but has not taken it for many years. During her ED visit on 05/16/2024, the patient was diagnosed with what appeared to be a left-sided pneumonia. She had blood cultures drawn which have now turned positive for Gram-positive cocci in chains. Further workup reveals leukocytosis of 19,000. Vitals show tachycardia, tachypnea and a T-max of 100.9 degrees. The patient has had repeat blood cultures drawn, has been given methadone, IV Toradol and IV ceftriaxone. She will now be admitted for further care. Review of Systems Review of Systems: Negative except HPI/interval history. 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 stopped going a year ago.) Advance Directives: No Advance Directives Information Provided: Yes Do you have a plan to hurt others: No Plan Patient : No Meds Allergies Allergy/AdvReac Type Severity Reaction Status Date / Time No Known Allergies Allergy Verified 05/17/24 10:06 [No Known Allergies*] Active Medications: Current Medications Acetaminophen (Acetaminophen 325 Mg Tablet) 650 mg PO Q6H PRN PRN Reason: Pain, Mild 1-3,fever,headache Calcium Carbonate (Calcium Carbonate 750 Mg Tab.Chew) 750 mg PO Q4H PRN PRN Reason: Heartburn Enoxaparin Sodium (Enoxaparin Sodium 40 Mg/0.4 Ml Syringe) 40 mg SUBCUT Q24H TIMMY Magnesium Hydroxide (Milk Of Magnesia 30 Ml Oral.Susp) 30 ml PO DAILY PRN PRN Reason: Constipation Melatonin (Melatonin 3 Mg Tablet) 6 mg PO BEDTIME PRN PRN Reason: Insomnia Morphine Sulfate (Morphine Sulfate 4 Mg/Ml Cartridge) 4 mg IVPUSH Q4H PRN; Protocol PRN Reason: Pain, Severe (Pain Scale 7-10) Sodium Chloride (0.9 % Sodium Chloride Flush 3 Ml Syringe) 3 ml IVFLUSH QSHIFT [facility] Physical Exam Vital Signs and Narrative: Vital Signs: Last Vital Signs Temp 99 F 05/17/24 12:12 Pulse 90 05/17/24 14:55 Resp 16 05/17/24 14:55 BP 116/77 05/17/24 14:55 Pulse Ox 95 05/17/24 14:55 O2 Del Method Room Air 05/17/24 14:55 BMI result Body Mass Index 23.8 Const: Other: Constitutional - Awake and Alert, No apparent distress Eyes - PERRLA, EOMI Cardiovascular - S1S2, RRR, No edema Respiratory - Rales L base; chest wall TTP Gastrointestinal - NT / ND; +BS; No rebound or guarding - No CVA tenderness Extremities - no calf tenderness bilaterally Musculoskeletal - Normal inspection, normal ROM Skin - R lateral thigh with patchy erythema and induration about 5cm with fluctuance; no creptius Neurological - Alert & oriented x3, No focal deficit Psychological - Appropriate affect Results Labs 05/17/24 13:10 05/17/24 13:10 Labs: Laboratory Results - last 24 hr 05/17/24 05/17/24 05/17/24 13:10 13:10 13:10 MCV 92.3 MCH 31.9 MCHC 34.6 RDW 12.9 Plt Count 271 MPV 8.8 L Immature Gran % (Auto) 0.6 H Neut % (Auto) 89.8 H Lymph % (Auto) 5.4 L [place] % (Auto) 3.8 Eos % (Auto) 0.1 Baso % (Auto) 0.3 Lymph # (Auto) 1.0 L [place] # (Auto) 0.7 Eos # (Auto) 0.0 Baso # (Auto) 0.1 Abs Immat Gran (auto) 0.12 H Absolute Neuts (auto) 17.4 H Absolute Nucleated RBC 0.000 Nucleated RBC % (auto) 0.0 Anion Gap 10 L Estim Creat Clear Calc 104.4 104.4 Estimated GFR > 60 > 60 Random Glucose 98 Lactic Acid 1.6 Calcium 9.1 Total Bilirubin 0.4 AST 54 H ALT 19 Alkaline Phosphatase 122 H Total Protein 7.2 Albumin 3.5 Procalcitonin 0.30 Assessment and Plan (1) Bacteremia: Status: Acute (2) Left lower lobe pneumonia: Status: Acute Plan 34 yo F with intravenous/injection polysubstance abuse who is being intubated for Gram-positive bacteremia, pneumonia and, suspected R thigh abscess. 1. Sepsis No severe features; meets sepsis criteria with tachycardia, temp, leukocytosis Likely due to gram positive bacteremia Given IV ropcehin in the ED, will add on IV vancomcyin 2. GPC in chains bacteremia Pulm vs Skin source vs secondary to IV drug use await speciation rocephin 2g, IV vacomcyin per pharmacy dosing repeat blood cultures sent consider further work up (echo, ID consult, etc) pending results 3. L sided pneumonia and pleuritic chest pain antibiotics as above IV analgesics 4. R thigh abscess will consult Gen surg to see I&D indicated antibiotics as above 5. Self reported history of seizures reports she is on 600mg TID (states she obtains it on the street) monitor for now 6. Opiate dependence interested in methadone -- given a dose in the ED, will consult addiction med to help titrate 7. Alcohol abuse reports heavy drinking x 1 month (more than 1 pint of spirits per day) no signs of withdrawal at this time; monitor with CIWA initiate phenobarb if needed 8. Hypothyroidism not on therapy will check TSH/reflex FT4 Full Code DVT pptx -- Lovenox Quality Stroke Does the patient have a stroke diagnosis?: No VTE Prior VTE?: No VTE Risk Level:: Medical - moderate - high VTE Device Contraindication: N/A - Device Ordered VTE Drug Contraindication: N/A - Med Ordered
[2024-05-17 15:48] LABS: TSH reflex Free T4 10.46 uIU/mL (0.32-4.0)
--- NOTE | 2024-05-17 15:52 | PHA.MEDREC ---
Pharmacy Consult ? Medication Reconciliation Pharmacy has completed the medication reconciliation.
[2024-05-17 16:38] LABS: Free T4 (Free Thyroxine) 0.73 ng/dL (0.71-1.85)
--- NOTE | 2024-05-17 16:56 | PM.CNGS ---
History of Present Illness Consult details Consult date: 05/17/24 Narrative: 34F here in the ED for left sided chest pain. She says that this has been going on for about 5 days. She denies coughing. She was noted to have a fever here in the ED. She also complained of pain on the right thigh. This is an area which she uses for IV drug use.She had actually sihned out AMA yesterday from the ED after being diagnosed with a pneumonia. She has known polysubstance abuse including ETOH and has apparently been bingeing at home. She has a long hx of IVDA and has had previous infections of the skin from this before as well. She describes her pain on her chest as worse with deep inspiration. I was consulted because of her right thigh cellulitis. Review of Systems Constitutional: Constitutional: Reports chills and Reports fever(s) Cardiovascular: Cardiovascular: Reports chest pain at rest Respiratory: Respiratory: Reports cough and Reports pain with cough Gastrointestinal: Gastrointestinal: Denies abdominal pain Genitourinary: Genitourinary: Denies dysuria [facility] Past Medical History Medical History (Updated 05/17/24 @ 17:02 by Angel Mca MD) Cellulitis of right thigh Alcohol abuse Polysubstance (including opioids) dependence with physiol dependence Asthma Hypothyroid Social History Social History Household Members: Other Housing: House Do you presently have visiting nurse or other home services: No Alcohol intake: current Alcohol intake frequency: a few times a week Alcohol type: hard liquor Patient Tobacco Use Status: Current everyday Tobacco user Substance Use Type: Crack/Cocaine and Heroin service: No Meds Allergies Allergy/AdvReac Type Severity Reaction Status Date / Time No Known Allergies Allergy Verified 05/17/24 10:06 [No Known Allergies*] Active Medications: Current Medications Acetaminophen (Acetaminophen 325 Mg Tablet) 650 mg PO Q6H PRN PRN Reason: Pain, Mild 1-3,fever,headache Calcium Carbonate (Calcium Carbonate 750 Mg Tab.Chew) 750 mg PO Q4H PRN PRN Reason: Heartburn Ceftriaxone Sodium (Ceftriaxone Sodium 2 Gm Vial) 2 gm IVPUSH Q24H [facility] Enoxaparin Sodium (Enoxaparin Sodium 40 Mg/0.4 Ml Syringe) 40 mg SUBCUT Q24H [facility] Vancomycin HCl 1,000 mg/ (Sodium Chloride) 270 mls @ 270 mls/hr IV Q12H [facility] Lactated Ringer's (Lr) 1,000 mls @ 100 mls/hr IVCONT .Q10H [facility] Stop: 05/18/24 11:29 Magnesium Hydroxide (Milk Of Magnesia 30 Ml Oral.Susp) 30 ml PO DAILY PRN PRN Reason: Constipation Melatonin (Melatonin 3 Mg Tablet) 6 mg PO BEDTIME PRN PRN Reason: Insomnia Morphine Sulfate (Morphine Sulfate 4 Mg/Ml Cartridge) 4 mg IVPUSH Q4H PRN; Protocol PRN Reason: Pain, Severe (Pain Scale 7-10) Pharmacy Consult (Consult Rx Vancomycin Dosing) 1 each MISCELLANE DAILY PRN PRN Reason: Consult order Sodium Chloride (0.9 % Sodium Chloride Flush 3 Ml Syringe) 3 ml IVFLUSH QSHIFT [facility] Physical Exam Vital Signs: Vital Signs: Last Vital Signs Temp 99 F 05/17/24 12:12 Pulse 90 05/17/24 14:55 Resp 16 05/17/24 14:55 BP 116/77 05/17/24 14:55 Pulse Ox 95 05/17/24 14:55 O2 Del Method Room Air 05/17/24 14:55 BMI result Body Mass Index 23.8 Const: General: comfortable and no acute distress Resp: Effort & Inspection: normal respiratory effort Cardio: Rate: regular rate GI: Palpation (GI): Soft to palpation, not firm, nontender and no guarding Extrem: Other: right thigh laterally - area of cellulitis,about 15 cm in widest dimension, mild induration, no obvious fluctuance, no drainage at this time, with tenderness Results Labs 05/18/24 04:49 05/18/24 04:49 Labs: Abnormal lab results 05/17/24 Range/Units 13:10 WBC 19.4 H (4.8-10.8) X10*3/uL MPV 8.8 L (9.4-12.3) fL Immature Gran % (Auto) 0.6 H (0.0-0.4) % Neut % (Auto) 89.8 H (45-73) % Lymph % (Auto) 5.4 L (20-40) % Lymph # (Auto) 1.0 L (1.2-4.9) X10*3/uL Abs Immat Gran (auto) 0.12 H (0.00-0.03) X10*3/uL Absolute Neuts (auto) 17.4 H (2.0-8.3) x10*3/uL Potassium 3.1 L (3.3-5.1) mmol/L Anion Gap 10 L (12-20) AST 54 H (5-31) U/L Alkaline Phosphatase 122 H (39-117) U/L TSH 10.46 H (0.32-4.0) uIU/mL Short CBC 05/17/24 Range/Units 13:10 WBC 19.4 H (4.8-10.8) X10*3/uL Hgb 13.7 (12.0-16.0) g/dl Hct 39.6 (37.0-47.0) % Plt Count 271 (160-400) X10*3/uL BMP 05/17/24 05/17/24 13:10 13:10 Sodium 138 Potassium 3.1 L Chloride 105 Carbon Dioxide 26 BUN 11 Creatinine 0.67 0.67 Calcium 9.1 Liver Function 05/17/24 Range/Units 13:10 Total Bilirubin 0.4 (0.0-1.0) mg/dL AST 54 H (5-31) U/L ALT 19 (0-31) U/L Alkaline Phosphatase 122 H (39-117) U/L Albumin 3.5 (3.5-5.0) g/dL All other labs normal. Assessment and Plan (1) Cellulitis of right thigh: Status: Acute Plan She has cellulitis of the right thigh on an area which she has been using for IV access for drugs of abuse. I do not feel any fluctuance at this time. Currently, there does not seem to be a drainable abscess. However, I will follow along while she is in the hospital. I have marked the area with a pen to allow better evaluation of progression or improvement. She has been started on IV abx. She also has a pneumonia on the left as well. She currently appears comfortable and is not toxic looking. Procedures Date of Service Date of Service: 05/18/24
[2024-05-17] MEDS: 0.9 % Sodium Chloride Flush 3 ML SYRINGE IVFLUSH (16:57)
[2024-05-17] MEDS: Enoxaparin Sodium 40 MG/0.4 ML SYRINGE SUBCUT (16:58)
[2024-05-17] MEDS: vancomycin HCL 1,500 MG in 0.9 % Sodium Chloride 500 ML 333.33 MG IV (16:59)
[2024-05-17] MEDS: Lactated Ringers 1,000 ML 100 ML IVCONT (17:00)
--- NOTE | 2024-05-17 17:24 | PHA.PROG ---
Admission Date/Time: May 17, 2024 15:04 Indication: skin Weight in k kg Serum Creatinine - Last 168 Hours 05/17/24 05/17/24 13:10 13:10 Creatinine 0.67 0.67 Estimated CrCl and GFR - Last 168 Hours 05/17/24 05/17/24 05/17/24 13:10 13:10 13:10 Estim Creat Clear Calc 104.4 104.4 Estimated GFR > 60 > 60 Vancomycin Loading Dose: 1500mg once on 05/16 ([id number]), and then re-loaded 1500mg once on 05/17 based on insight results Current Vancomycin Dosing Regimen: 1000mg q12h Vancomycin Monitoring using AUC goal of 400 - 600 range with trough as surrogate marker: 444 AUC, predicted trough 12.7 Date and Time for next Vancomycin Level to be drawn: 05/18 @ 1500 Pharmacist Comments on Vancomycin Plan: Vancomycin dosing will take advantage of [employer] as a clinical decision support tool that uses Bayesian modeling to calculate individual patient's pharmacokinetic parameters and forecast the patient's drug concentration time course with the target goal AUC 24 range of 400 - 600 mg/L/hr.
[2024-05-17] MEDS: Morphine Sulfate 4 MG/ML CARTRIDGE IVPUSH (18:06)
[2024-05-17 18:31] VITALS: BP 126/84; PULSE 103; RESP 16; TEMP 37.7; O2SAT 98
[2024-05-17 19:44] VITALS: BP 121/83; PULSE 118; RESP 16; O2SAT 97
[2024-05-17 22:17] VITALS: BP 109/71; PULSE 118; RESP 18; TEMP 37.8; O2SAT 96
[2024-05-18] VITALS (7 sets, daily range): BP systolic 109–137; BP diastolic 66–92; PULSE 85–111; RESP 16–20; TEMP 36.3–37.3; O2SAT 93–99
[2024-05-18] MEDS: Morphine Sulfate 4 MG/ML CARTRIDGE IVPUSH ×6 (00:04→23:26)
[2024-05-18] MEDS: Lactated Ringers 1,000 ML 100 ML IVCONT (02:25)
[2024-05-18] MEDS: Milk of Magnesia 30 ML ORAL.SUSP PO (03:12)
--- NOTE | 2024-05-18 03:17 | PC.NURSE ---
pt c/o constipation, has to have BM but hurts to strain. MOM given PRN per request
[2024-05-18] MEDS: vancomycin HCL 1,000 MG in 0.9 % Sodium Chloride 250 ML 270 MG IV (05:05)
[2024-05-18 05:17] LABS: Hematocrit 34.1 % (37.0-47.0); Mean Corpuscular HGB Conc 35.2 g/dl (31.0-35.0); Mean Corpuscular Hemoglobin 31.9 pg (27.0-33.0); Mean Corpuscular Volume 90.7 fL (80.0-98.0); Mean Platelet Volume 8.8 fL (9.4-12.3); Platelet Count 259 X10*3/uL (160-400); Red Blood Count 3.76 X10*6/uL (4.20-5.50); Red Cell Distribution Width 12.9 % (11.0-16.0)
[2024-05-18 05:35] LABS: Anion Gap 11 (12-20); Blood Urea Nitrogen 8 mg/dL (9-16); Calcium 8.2 mg/dL (8.4-10.2); Carbon Dioxide 26 mmol/L (22-29); Chloride 106 mmol/L (96-108); Creatinine Clr Calc Pharmacy 109.3; Estimated Glomerular Filt Rate > 60; Glucose Random 93 mg/dL (60-115); Potassium 3.3 mmol/L (3.3-5.1); Sodium 140 mmol/L (135-145)
[2024-05-18] MEDS: Acetaminophen 325 MG TABLET 650 MG PO (07:49)
--- NOTE | 2024-05-18 07:50 | PC.NURSE ---
pt requested tylenol for pain 07/25
--- NOTE | 2024-05-18 07:57 | PM.PNGS ---
Subjective Subjective Date of Service: 05/18/24 <Gretel Cole PA-C - Last Filed: 05/18/24 08:00> 05/18/24 <Angel Mac MD - Last Filed: 05/18/24 09:20> Interval history: C/o left rib pain and pain at right thigh, some what improved. <Gretel Cole PA-C - Last Filed: 05/18/24 08:00> Physical Exam Vital Signs: Vital Signs: Last Vital Signs Temp 100.1 F 05/17/24 22:17 Pulse 101 H 05/18/24 04:55 Resp 20 05/18/24 04:55 BP 121/83 05/18/24 04:55 Pulse Ox 94 05/18/24 04:55 O2 Del Method Room Air 05/18/24 04:55 BMI result Body Mass Index 23.8 <HIMA Soliman Last Filed: 05/18/24 08:00> Const: General: no acute distress, alert and anxious <Gretel Cole PA-C - Last Filed: 05/18/24 08:00> Orientation/consciousness: patient oriented x3 <HIMA Soliman Last Filed: 05/18/24 08:00> Resp: Effort & Inspection: normal respiratory effort, able to speak in complete sentences and Actively coughing <Gretel Cole PA-C - Last Filed: 05/18/24 08:00> Neuro: General: patient oriented x3 <Gretel Cole PA-C - Last Filed: 05/18/24 08:00> Extrem: Other: right lateral thigh with erythema, recessed from line of demarcation, some bogginess at medial/distal aspect of cellulitic region with surrounding induration <HIMA Soliman Last Filed: 05/18/24 08:00> Objective Data Active Medications Acetaminophen (Acetaminophen 325 Mg Tablet) 650 mg PO Q6H PRN PRN Reason: Pain, Mild 1-3,fever,headache Last Admin: 05/18/24 07:49 Dose: 650 mg Documented By: MAKEDA Calcium Carbonate (Calcium Carbonate 750 Mg Tab.Chew) 750 mg PO Q4H PRN PRN Reason: Heartburn Ceftriaxone Sodium (Ceftriaxone Sodium 2 Gm Vial) 2 gm IVPUSH Q24H [facility] Enoxaparin Sodium (Enoxaparin Sodium 40 Mg/0.4 Ml Syringe) 40 mg SUBCUT Q24H [facility] Last Admin: 05/17/24 16:58 Dose: 40 mg Documented By: MECHELLE Vancomycin HCl 1,000 mg/ (Sodium Chloride) 270 mls @ 270 mls/hr IV Q12H [facility] Last Infusion: 05/18/24 06:05 Dose: Infused Documented By: LUIS M Lactated Ringer's (Lr) 1,000 mls @ 100 mls/hr IVCONT .Q10H [facility] Stop: 05/18/24 11:29 Last Admin: 05/18/24 02:25 Dose: 100 mls/hr Documented By: LUIS M Magnesium Hydroxide (Milk Of Magnesia 30 Ml Oral.Susp) 30 ml PO DAILY PRN PRN Reason: Constipation Last Admin: 05/18/24 03:12 Dose: 30 ml Documented By: LUIS M Melatonin (Melatonin 3 Mg Tablet) 6 mg PO BEDTIME PRN PRN Reason: Insomnia Morphine Sulfate (Morphine Sulfate 4 Mg/Ml Cartridge) 4 mg IVPUSH Q4H PRN; Protocol PRN Reason: Pain, Severe (Pain Scale 7-10) Last Admin: 05/18/24 04:57 Dose: 4 mg Documented By: ROMINA Pharmacy Consult (Consult Rx Vancomycin Dosing) 1 each MISCELLANE DAILY PRN PRN Reason: Consult order Sodium Chloride (0.9 % Sodium Chloride Flush 3 Ml Syringe) 3 ml IVFLUSH QSHIFT [facility] Last Admin: 05/18/24 01:10 Dose: Not Given Documented By: LUIS M Non-Admin Reason: IV Running <Gretel Cole PA-C - Last Filed: 05/18/24 08:00> Labs CBC & Chem 7: 05/18/24 04:49 05/18/24 04:49 <Gretel Cole PA-C - Last Filed: 05/18/24 08:00> Labs: Laboratory Results - last 24 hr 05/17/24 05/17/24 05/17/24 13:10 13:10 13:10 MCV 92.3 MCH 31.9 MCHC 34.6 RDW 12.9 Plt Count 271 MPV 8.8 L Immature Gran % (Auto) 0.6 H Neut % (Auto) 89.8 H Lymph % (Auto) 5.4 L Grand % (Auto) 3.8 Eos % (Auto) 0.1 Baso % (Auto) 0.3 Lymph # (Auto) 1.0 L [place] # (Auto) 0.7 Eos # (Auto) 0.0 Baso # (Auto) 0.1 Abs Immat Gran (auto) 0.12 H Absolute Neuts (auto) 17.4 H Absolute Nucleated RBC 0.000 Nucleated RBC % (auto) 0.0 Anion Gap 10 L Estim Creat Clear Calc 104.4 104.4 Estimated GFR > 60 > 60 Random Glucose 98 Lactic Acid 1.6 Calcium 9.1 Total Bilirubin 0.4 AST 54 H ALT 19 Alkaline Phosphatase 122 H Total Protein 7.2 Albumin 3.5 Procalcitonin 0.30 TSH 10.46 H Free T4 0.73 05/18/24 04:49 MCV 90.7 MCH 31.9 MCHC 35.2 H RDW 12.9 Plt Count 259 MPV 8.8 L Immature Gran % (Auto) Neut % (Auto) Lymph % (Auto) Grand % (Auto) Eos % (Auto) Baso % (Auto) Lymph # (Auto) Grand # (Auto) Eos # (Auto) Baso # (Auto) Abs Immat Gran (auto) Absolute Neuts (auto) Absolute Nucleated RBC 0.000 Nucleated RBC % (auto) 0.0 Anion Gap 11 L Estim Creat Clear Calc 109.3 Estimated GFR > 60 Random Glucose 93 Lactic Acid Calcium 8.2 L D Total Bilirubin AST ALT Alkaline Phosphatase Total Protein Albumin Procalcitonin TSH Free T4 <Gretel Cole PA-C - Last Filed: 05/18/24 08:00> Procedures Date of Service Date of Service: 05/18/24 <Gretel Cole PA-C - Last Filed: 05/18/24 08:00> 05/18/24 <Angel Mac MD - Last Filed: 05/18/24 09:20> Progress Note: A&P Assessment and plan (1) Cellulitis of right thigh: Status: Acute <Gretel Cole PA-C - Last Filed: 05/18/24 08:00> Assessment and Plan: Says she has pain all over No fever Cellulitic area improved No fluctuance currently No obvious drainable abscess Continue IV antibiotics We will follow up Seen and examined independently <Angel Mac MD - Last Filed: 05/18/24 09:20> Assessment and Plan: Overall cellulitis improving. Cont IV abx. Some bogginess at medial/distal aspect with surrounding induration, may be developing abscess but currently nothing to open. Will cont to follow to see if abscess develops. <Gretel Cole PA-C - Last Filed: 05/18/24 08:00> Time Spent With Patient Time: Total time managing care of this patient today ____ minutes. <Gretel Cole PA-C - Last Filed: 05/18/24 08:00> Quality Stroke Does the patient have a stroke diagnosis?: No <Gretel Cole PA-C - Last Filed: 05/18/24 08:00> VTE Prior VTE?: No <Gretel Cole PA-C - Last Filed: 05/18/24 08:00> VTE Risk Level:: Medical - moderate - high <Gretel Cole PA-C - Last Filed: 05/18/24 08:00> VTE Device Contraindication: N/A - Device Ordered <Gretel Cole PA-C - Last Filed: 05/18/24 08:00> VTE Drug Contraindication: N/A - Med Ordered <Gretel Cole PA-C - Last Filed: 05/18/24 08:00>
--- NOTE | 2024-05-18 08:38 | HO.ADDICT_ITS ---
History of Present Illness Date of Service: 05/18/2024 Chief Complaint: Bacteremia,pneumonia,sepsis Reason for Consult: EDER Sources of Information: patient interviewed and chart reviewed HPI Narrative: Patient is a 34 year old female with hisotry of AUD and OUD, medically admitted with bacteremia and pneumonia Consult requested due to current substance use and request for MOUD Seen in room 353, awake, alert, engaged in interview. Substance use history reviewed: -currently using approx a bundle of fentanyl daily with cocaine IV. Last use prior to coming to ED. -has abscess on thigh where she reports she often injects. -reports history of several overdoses -numerous admissions to various levels of care including [facility] and [address] [facility] -Previously engaged in treatment for OUD with [facility]. Most recent dose 110mg about a year ago -Reports daily alcohol use (pint) that started a couple of months ago . States she started drinking as a way to use less opiates. -Reported withdrawal seizure, however unclear if this was actually a seizure as she states it occurred in [facility] bathroom and did not seek medical attn Appears comfortable overall, denies any withdrawal sx, but is experiencing left sided lower chest/rib pain No signs of alcohol withdrawal - Last HIV and Hepatitis screen in 2018 [facility] Brief Intervention This ad copy writer met with patient to discuss current alcohol use and concerns related to increased risk of alcohol related problems. Discussed how alcohol use has impacted health, including negative impact on mental health and overall physical wellbeing. Discussed risk reduction strategies including drinking below the recommended limit. Medical Evaluation Reviewed: Yes Review of Systems Constitutional: Reports as per HPI, Denies chills and Reports malaise Cardiovascular: Reports dyspnea Respiratory: Reports pain on inspiration, Reports pain with cough and Reports dyspnea Gastrointestinal: Denies diarrhea, Denies loose stools, Denies nausea and Denies vomiting Denies tremor(s) Diagnostics Vital Signs (24Hr): Vital Signs - 24 hr 05/17/24 10:05 05/17/24 12:12 05/17/24 14:55 Temperature 98.8 F 99 F Pulse Rate 112 H 100 90 Respiratory Rate 20 18 16 Blood Pressure 132/80 129/86 116/77 Pulse Oximetry 98 97 95 Oxygen Delivery Method Room Air Room Air Room Air 05/17/24 18:31 05/17/24 19:44 05/17/24 22:17 Temperature 99.9 F 100.1 F Pulse Rate 103 H 118 H 118 H Respiratory Rate 16 16 18 Blood Pressure 126/84 121/83 109/71 Pulse Oximetry 98 97 96 Oxygen Delivery Method Room Air Room Air Room Air 05/18/24 01:21 05/18/24 04:55 05/18/24 08:00 Temperature 97.6 F Pulse Rate 101 H 105 H Respiratory Rate 16 20 18 Blood Pressure 121/83 109/66 Pulse Oximetry 94 94 Oxygen Delivery Method Room Air Room Air BMI result Body Mass Index 23.8 Labs 05/18/24 04:49 05/18/24 04:49 Labs: Laboratory Results - last 48 hr 05/17/24 05/17/24 05/17/24 13:10 13:10 13:10 WBC 19.4 H RBC 4.29 Hgb 13.7 Hct 39.6 MCV 92.3 MCH 31.9 MCHC 34.6 RDW 12.9 Plt Count 271 MPV 8.8 L Immature Gran % (Auto) 0.6 H Neut % (Auto) 89.8 H Lymph % (Auto) 5.4 L [place] % (Auto) 3.8 Eos % (Auto) 0.1 Baso % (Auto) 0.3 Lymph # (Auto) 1.0 L [place] # (Auto) 0.7 Eos # (Auto) 0.0 Baso # (Auto) 0.1 Abs Immat Gran (auto) 0.12 H Absolute Neuts (auto) 17.4 H Absolute Nucleated RBC 0.000 Nucleated RBC % (auto) 0.0 Sodium 138 Potassium 3.1 L Chloride 105 Carbon Dioxide 26 Anion Gap 10 L BUN 11 Creatinine 0.67 0.67 Estim Creat Clear Calc 104.4 104.4 Estimated GFR > 60 Random Glucose Lactic Acid Calcium Total Bilirubin AST ALT Alkaline Phosphatase Troponin I High Sens Total Protein Albumin Procalcitonin TSH Free T4 05/17/24 05/18/24 13:10 04:49 WBC 15.0 H RBC 3.76 L Hgb 12.0 Hct 34.1 L MCV 90.7 MCH 31.9 MCHC 35.2 H RDW 12.9 Plt Count 259 MPV 8.8 L Immature Gran % (Auto) Neut % (Auto) Lymph % (Auto) [place] % (Auto) Eos % (Auto) Baso % (Auto) Lymph # (Auto) [place] # (Auto) Eos # (Auto) Baso # (Auto) Abs Immat Gran (auto) Absolute Neuts (auto) Absolute Nucleated RBC 0.000 Nucleated RBC % (auto) 0.0 Sodium 140 Potassium 3.3 Chloride 106 Carbon Dioxide 26 Anion Gap 11 L BUN 8 L Creatinine 0.64 Estim Creat Clear Calc 109.3 Estimated GFR > 60 > 60 Random Glucose 98 93 Lactic Acid 1.6 Calcium 9.1 8.2 L D Total Bilirubin 0.4 AST 54 H ALT 19 Alkaline Phosphatase 122 H Troponin I High Sens < 2.7 Total Protein 7.2 Albumin 3.5 Procalcitonin 0.30 TSH 10.46 H Free T4 0.73 Mental Status Exam Mental Status Exam Patient Appearance: Well Grooomed and Appropriate Patient Orientation: Person, Place, Time and Situation Level of Consciousness: Awake, Appropriate and Alert Patient Behavior: Appropriate, Talkative and Cooperative Mood Description: Calm Affect Description: Calm Speech Pattern: Clear Hallucinations: None Thought Content: positive for Intact Judgement: Good Medications Medications Current Medications Acetaminophen (Acetaminophen 325 Mg Tablet) 650 mg PO Q6H PRN PRN Reason: Pain, Mild 1-3,fever,headache Last Admin: 05/18/24 07:49 Dose: 650 mg Calcium Carbonate (Calcium Carbonate 750 Mg Tab.Chew) 750 mg PO Q4H PRN PRN Reason: Heartburn Ceftriaxone Sodium (Ceftriaxone Sodium 2 Gm Vial) 2 gm IVPUSH Q24H [facility] Enoxaparin Sodium (Enoxaparin Sodium 40 Mg/0.4 Ml Syringe) 40 mg SUBCUT Q24H [facility] Last Admin: 05/17/24 16:58 Dose: 40 mg Vancomycin HCl 1,000 mg/ (Sodium Chloride) 270 mls @ 270 mls/hr IV Q12H [facility] Last Infusion: 05/18/24 06:05 Dose: Infused Lactated Ringer's (Lr) 1,000 mls @ 100 mls/hr IVCONT .Q10H [facility] Stop: 05/18/24 11:29 Last Admin: 05/18/24 02:25 Dose: 100 mls/hr Magnesium Hydroxide (Milk Of Magnesia 30 Ml Oral.Susp) 30 ml PO DAILY PRN PRN Reason: Constipation Last Admin: 05/18/24 03:12 Dose: 30 ml Melatonin (Melatonin 3 Mg Tablet) 6 mg PO BEDTIME PRN PRN Reason: Insomnia Morphine Sulfate (Morphine Sulfate 4 Mg/Ml Cartridge) 4 mg IVPUSH Q4H PRN; Protocol PRN Reason: Pain, Severe (Pain Scale 7-10) Last Admin: 05/18/24 04:57 Dose: 4 mg Pharmacy Consult (Consult Rx Vancomycin Dosing) 1 each MISCELLANE DAILY PRN PRN Reason: Consult order Sodium Chloride (0.9 % Sodium Chloride Flush 3 Ml Syringe) 3 ml IVFLUSH QSHIFT [facility] Last Admin: 05/18/24 01:10 Dose: Not Given Allergies Allergies Allergy/AdvReac Type Severity Reaction Status Date / Time No Known Allergies Allergy Verified 05/17/24 10:06 [No Known Allergies*] Assessment & Plan Assessment & Plan (1) Opioid use disorder, severe, dependence: Status: Acute Code(s): F11.20 - Opioid dependence, uncomplicated Assessment and Plan: * methadone 45mg today and 50mg in AM ---leather cleaner to send referral to [facility] * clonidine PRN for restlessness or anxiety related to opiate withdrawal * HIV and hepatitis screens ordered * will follow up in AM * * CIWA in place for possible alcohol withdrawal. Will address if sx develop. Total time managing care of this patient today _45___ minutes. PMFSH Past Medical History Medical History (Updated 05/18/24 @ 16:55 by April Reddy CNP) Cellulitis of right thigh Alcohol abuse Polysubstance (including opioids) dependence with physiol dependence Asthma Hypothyroid Social History Social History Household Members: Other Housing: House Do you presently have visiting nurse or other home services: No Alcohol intake: current Alcohol intake frequency: a few times a week Alcohol type: hard liquor Patient Tobacco Use Status: Current everyday Tobacco user Substance Use Type: Crack/Cocaine and Heroin service: No
--- NOTE | 2024-05-18 09:48 | HO.PM.IMPN ---
Subjective Subjective Date of Service: 05/18/24 Interval History: seen and examined reports L sided chest pain leg pain tolerable current analgesic regiment helping reports no other complaints Review of Systems Negative except HPI/interval history. Physical Exam Vital Signs: Vital Signs: Last Vital Signs Temp 97.6 F 05/18/24 08:00 Pulse 105 H 05/18/24 08:00 Resp 18 05/18/24 08:00 BP 109/66 05/18/24 08:00 Pulse Ox 94 05/18/24 08:00 O2 Del Method Room Air 05/18/24 08:00 BMI result Body Mass Index 23.8 Const: Other: General - no acute distress, appears comfortable Cardiovascular - regular rate and rhythm, S1-S2 Lungs - dim sounds left base Abdomen - soft, nontender, no rebound or guarding Extremities - improving erythema Neuro - awake and alert, no focal deficits Objective Data Active Medications Acetaminophen (Acetaminophen 325 Mg Tablet) 650 mg PO Q6H PRN PRN Reason: Pain, Mild 1-3,fever,headache Last Admin: 05/18/24 07:49 Dose: 650 mg Documented By: MAKEDA Calcium Carbonate (Calcium Carbonate 750 Mg Tab.Chew) 750 mg PO Q4H PRN PRN Reason: Heartburn Ceftriaxone Sodium (Ceftriaxone Sodium 2 Gm Vial) 2 gm IVPUSH Q24H [facility] Enoxaparin Sodium (Enoxaparin Sodium 40 Mg/0.4 Ml Syringe) 40 mg SUBCUT Q24H [facility] Last Admin: 05/17/24 16:58 Dose: 40 mg Documented By: MECHELLE Vancomycin HCl 1,000 mg/ (Sodium Chloride) 270 mls @ 270 mls/hr IV Q12H [facility] Last Infusion: 05/18/24 06:05 Dose: Infused Documented By: LUIS M Lactated Ringer's (Lr) 1,000 mls @ 100 mls/hr IVCONT .Q10H [facility] Stop: 05/18/24 11:29 Last Admin: 05/18/24 02:25 Dose: 100 mls/hr Documented By: LUIS M Magnesium Hydroxide (Milk Of Magnesia 30 Ml Oral.Susp) 30 ml PO DAILY PRN PRN Reason: Constipation Last Admin: 05/18/24 03:12 Dose: 30 ml Documented By: LUIS M Melatonin (Melatonin 3 Mg Tablet) 6 mg PO BEDTIME PRN PRN Reason: Insomnia Methadone HCl (Methadone Hcl 20 Mg/2 Ml Oral.Conc) 50 mg PO DAILY@0800 [facility] Morphine Sulfate (Morphine Sulfate 4 Mg/Ml Cartridge) 4 mg IVPUSH Q4H PRN; Protocol PRN Reason: Pain, Severe (Pain Scale 7-10) Last Admin: 05/18/24 04:57 Dose: 4 mg Documented By: ROMINA Pharmacy Consult (Consult Rx Vancomycin Dosing) 1 each MISCELLANE DAILY PRN PRN Reason: Consult order Sodium Chloride (0.9 % Sodium Chloride Flush 3 Ml Syringe) 3 ml IVFLUSH QSHIFT [facility] Last Admin: 05/18/24 08:44 Dose: Not Given Documented By: CELESTINE Non-Admin Reason: IV Running Labs 05/18/24 04:49 05/18/24 04:49 Labs: Laboratory Results - last 24 hr 05/17/24 05/17/24 05/17/24 13:10 13:10 13:10 MCV 92.3 MCH 31.9 MCHC 34.6 RDW 12.9 Plt Count 271 MPV 8.8 L Immature Gran % (Auto) 0.6 H Neut % (Auto) 89.8 H Lymph % (Auto) 5.4 L [place] % (Auto) 3.8 Eos % (Auto) 0.1 Baso % (Auto) 0.3 Lymph # (Auto) 1.0 L [place] # (Auto) 0.7 Eos # (Auto) 0.0 Baso # (Auto) 0.1 Abs Immat Gran (auto) 0.12 H Absolute Neuts (auto) 17.4 H Absolute Nucleated RBC 0.000 Nucleated RBC % (auto) 0.0 Anion Gap 10 L Estim Creat Clear Calc 104.4 104.4 Estimated GFR > 60 > 60 Random Glucose 98 Lactic Acid 1.6 Calcium 9.1 Total Bilirubin 0.4 AST 54 H ALT 19 Alkaline Phosphatase 122 H Total Protein 7.2 Albumin 3.5 Procalcitonin 0.30 TSH 10.46 H Free T4 0.73 05/18/24 04:49 MCV 90.7 MCH 31.9 MCHC 35.2 H RDW 12.9 Plt Count 259 MPV 8.8 L Immature Gran % (Auto) Neut % (Auto) Lymph % (Auto) [place] % (Auto) Eos % (Auto) Baso % (Auto) Lymph # (Auto) [place] # (Auto) Eos # (Auto) Baso # (Auto) Abs Immat Gran (auto) Absolute Neuts (auto) Absolute Nucleated RBC 0.000 Nucleated RBC % (auto) 0.0 Anion Gap 11 L Estim Creat Clear Calc 109.3 Estimated GFR > 60 Random Glucose 93 Lactic Acid Calcium 8.2 L D Total Bilirubin AST ALT Alkaline Phosphatase Total Protein Albumin Procalcitonin TSH Free T4 Assessment and Plan (1) Bacteremia: Status: Acute (2) Cellulitis of right thigh: Status: Acute Plan 34 yo F with intravenous/injection polysubstance abuse who is being intubated for Gram-positive bacteremia, pneumonia and, suspected R thigh abscess. 1. Sepsis No severe features; meets sepsis criteria with tachycardia, temp, leukocytosis Likely due to gram positive bacteremia still with wbc and tachycardia continue rocephin/vancomycin for now 2. GPC in chains bacteremia Pulm vs Skin source vs secondary to IV drug use await speciation - still pending; repeat blood cultures without growth thus far, but has been less than 24 hours rocephin 2g, IV vacomcyin per pharmacy dosing consider further work up (echo, ID consult, etc) pending results 3. L sided pneumonia and pleuritic chest pain antibiotics as above IV analgesics 4. R thigh cellulitis gen surg input appreciated -- do no feel abscess developed yet -- continue with IV antibiotics 5. Self reported history of seizures reports she is on 600mg TID (states she obtains it on the street) monitor for now 6. Opiate dependence addiction medicine appreciated on methadone 50mg this AM 7. Alcohol abuse reports heavy drinking x 1 month (more than 1 pint of spirits per day) no signs of withdrawal at this time; monitor with CIWA continue monitoring, last CIWA 3 8. Hypothyroidism not on therapy will check TSH/reflex FT4 Full Code DVT pptx -- Lovenox Quality Stroke Does the patient have a stroke diagnosis?: No VTE Prior VTE?: No VTE Risk Level:: Medical - moderate - high VTE Device Contraindication: N/A - Device Ordered VTE Drug Contraindication: N/A - Med Ordered
[2024-05-18] MEDS: methADONE HCl 20 MG/2 ML ORAL.CONC 45 MG PO (10:38)
[2024-05-18] MEDS: Nicotine 21 MG PATCH.TD24 TRANSDERMA (10:38)
[2024-05-18] MEDS: cefTRIAXone sodium 2 GM VIAL IVPUSH (12:14)
--- NOTE | 2024-05-18 12:56 | MHC.CM.PN ---
PT LIVES WITH FRIENDS HAS A RIDE HOME AYDE DCD WILL BE FOLLOWED BY [facility]CTION [facility]IC[facility]
[2024-05-18] MEDS: Enoxaparin Sodium 40 MG/0.4 ML SYRINGE SUBCUT (15:26)
[2024-05-18] MEDS: 0.9 % Sodium Chloride Flush 3 ML SYRINGE IVFLUSH ×2 (15:29→19:43)
--- NOTE | 2024-05-18 19:08 | PC.NURSE ---
Patient arrived to the unit from ED in the hospital bed 0820. Alert and oriented, drowsy on arrival. VSS, RA sats 94%, c/o cough and severe pain, PRN Morphine administered. Independent in the room, compliant with meals and medication. Slept most of the shift. At 1800 patient requested another dose of Morphine, unable to give, next dose not due until 1930, provider notified. Per MD Morphine dose given early, night RN notified.
[2024-05-19] VITALS (7 sets, daily range): BP systolic 116–135; BP diastolic 8–89; PULSE 81–99; RESP 18; TEMP 36–37.2; O2SAT 92–96
[2024-05-19] MEDS: Morphine Sulfate 4 MG/ML CARTRIDGE IVPUSH ×5 (03:28→21:14)
[2024-05-19 06:59] LABS: Hematocrit 37.2 % (37.0-47.0); Hemoglobin 12.6 g/dl (12.0-16.0); Mean Corpuscular HGB Conc 33.9 g/dl (31.0-35.0); Mean Corpuscular Hemoglobin 31.3 pg (27.0-33.0); Mean Corpuscular Volume 92.5 fL (80.0-98.0); Mean Platelet Volume 8.6 fL (9.4-12.3); Platelet Count 293 X10*3/uL (160-400); Red Blood Count 4.02 X10*6/uL (4.20-5.50); White Blood Count 11.9 X10*3/uL (4.8-10.8)
--- NOTE | 2024-05-19 07:00 | CA_ITS ---
Transthoracic Echocardiogram Patient (Last, First, Middle): Lona Taylor, Gender: Female Date of : 1990 Age: 34 Procedure Date: 05/19/2024 Procedure Type: Transthoracic Echocardiogram Location: S3E Height: 165.1 cm Weight: 64.86 kg BSA: 1.72 m2 Heart Rate: bpm BP: 135 / 89 mmHg Teaching Pastor: TO Referring MD: Asha Addison MD Symptoms: group a strep bacteraemia Study Quality: Adequate ECG Rhythm: Sinus Conclusions: - The left ventricular systolic function is normal. The visually estimated ejection fraction is between 55-60%. - No obvious valvular pathology seen on this study. Findings Left Ventricle Normal left ventricular cavity size. There is mildly increased left ventricular wall thickness. The left ventricular systolic function is normal. The visually estimated ejection fraction is between 55-60%. Diastolic function is normal for age. Right Ventricle Normal right ventricular cavity size and systolic function. Atria Both atria are normal in size. Aortic Valve There is a normal trileaflet aortic valve. There is no aortic valve stenosis. There is no aortic valve regurgitation. Mitral Valve The mitral valve appears normal. There is no mitral valve regurgitation. There is no mitral valve stenosis. Pulmonic Valve There is trace pulmonic valve regurgitation. Tricuspid Valve Normal tricuspid valve structure. There is trace tricuspid valve regurgitation. There is no evidence of pulmonary hypertension. Great Vessels The asc aorta is normal in size. Venous The inferior vena cava is mildly dilated and collapses less than 50% with inspiration. Pericardium/Pleural There is a trivial pericardial effusion. Prior Study Comparison No prior study available for comparison. Recommendations, Care & Conclusions No obvious valvular pathology seen on this study. Measurements 2D Linear Measurements IVSd: 1.05 0.6-0.9/0.6-1.0 cm LVIDd: 4.02 3.9-5.3/4.2-5.9 cm LVIDd Index: 2.34 2.4-3.2/2.2-3.1 cm/m2 LVIDs: 2.85 2.0-3.6 cm LVPWd: 1.05 0.7-1.1 cm LA Diam: 3.00 2.7-3.8/3.0-4.0 cm LAIDs Index: 1.74 1.5-2.3 cm/m2 LV Mass: 170.83 67-162/88-224 g LV Mass Index: 99.32 43-95/49-115 g/m2 LVOT Diam: 2.10 3.0+(-)1.3 cm 2D Systolic Function EF 4C: 53.60 >55% EF 2C: 52.00 >55% EF BiP: 51.50 >55% Mitral Valve MV Pk E: 0.80 MV PK A: 0.35 MV Decel Time: 223.00 E/A: 2.30 E'Lateral: 13.20 E'Medial: 10.40 E/E' Med: 7.70 E/E' Lat: 6.10 PHT: 65.00 MVA PHT: 3.38 Decel Rice: 3.59 Aortic Valve AoV Pk Florian: 1.18 AoV Mn Florian: 0.89 AoV VTI: 0.25 AoV Pk Grad: 6.00 Aov Mn Grad: 3.00 TYLOR Cont.VTI: 3.19 LVOT LVOT Pk Florian: 1.06 LVOT Mn Florian: 0.74 LVOT VTI: 0.23 LVOT Pk Grad: 4.00 LVOT Mn Grad: 2.00 LVOT Diam: 2.10 LVOT Area: 3.46 Diastolic Function MV Pk E: 0.80 MV Pk A: 0.35 E/A: 2.30 E'Medial: 10.40 E/E' Med: 7.70 E' Laterial: 13.20 E/E' Lat: 6.10 Right Ventricle TAPSE (mm): 23.00 TVS' Florian: 14.00 Tricuspid Valve TR Pk Florian: 1.90 TR Pk Grad: 14.00 RA Press: 8.00 RVSP: 22.00 Great Vessels Aorta Sinus of Valsalva: 3.11 2.0-3.5 cm Ao Asc: 3.50 2.1-3.4 cm Updated in Other Vendor System with Status of Final Chris Whitney MD electronically signed on 05/19/2024 4:05:03 PM with status of Final
[2024-05-19 07:14] LABS: Anion Gap 11 (12-20); Blood Urea Nitrogen 6 mg/dL (9-16); Calcium 8.4 mg/dL (8.4-10.2); Carbon Dioxide 29 mmol/L (22-29); Chloride 104 mmol/L (96-108); Creatinine Clr Calc Pharmacy 116.6; Estimated Glomerular Filt Rate > 60; Glucose Random 81 mg/dL (60-115); Potassium 3.5 mmol/L (3.3-5.1); Sodium 140 mmol/L (135-145)
[2024-05-19] MEDS: methADONE HCl 20 MG/2 ML ORAL.CONC 50 MG PO (08:06)
[2024-05-19] MEDS: Nicotine 21 MG PATCH.TD24 TRANSDERMA (08:07)
[2024-05-19 08:08] LABS: HBS Num1 57.18 mIU/mL (0-7.99); HBc Num1 0.18 S/CO (0.00-0.79); HBsAGNum1 0.38 S/CO (0.00-0.99); HIV AB/AG Nonreactive (Nonreactive); HIV Num 1 0.06 S/CO (0.00-0.99); Hepatitis B Core Antibody Nonreactive (Nonreactive); Hepatitis B Surface Antigen Negative (Negative); ~HepC Num1 7.36 S/CO (0.00-0.79); ~Hepatitis B Surface Antibody REACTIVE (Nonreactive); ~Hepatitis C Antibody Reactive (Nonreactive)
[2024-05-19 08:09] LABS: Hepatitis A Antibody IgM 0.14 Index (0-0.79); ~Hepatitis A Antibody IgM Nonreactive (Nonreactive)
[2024-05-19] MEDS: 0.9 % Sodium Chloride Flush 3 ML SYRINGE IVFLUSH ×3 (08:11→23:36)
--- NOTE | 2024-05-19 09:21 | PM.PNGS ---
Subjective Subjective Date of Service: 05/19/24 Interval history: No new complaints No fever Says she feels ?okay? Physical Exam Vital Signs: Vital Signs: Last Vital Signs Temp 96.9 F 05/19/24 07:19 Pulse 95 05/19/24 07:19 Resp 18 05/19/24 07:19 BP 135/89 05/19/24 07:19 Pulse Ox 95 05/19/24 07:19 O2 Del Method Room Air 05/19/24 07:19 BMI result Body Mass Index 23.8 Const: General: comfortable and no acute distress Resp: Effort & Inspection: normal respiratory effort Cardio: Rate: regular rate Extrem: Other: Right thigh area of cellulitis is much improved. Small residual area of redness and induration, no fluctuance Objective Data Active Medications Acetaminophen (Acetaminophen 325 Mg Tablet) 650 mg PO Q6H PRN PRN Reason: Pain, Mild 1-3,fever,headache Last Admin: 05/18/24 07:49 Dose: 650 mg Documented By: MAKEDA Calcium Carbonate (Calcium Carbonate 750 Mg Tab.Chew) 750 mg PO Q4H PRN PRN Reason: Heartburn Ceftriaxone Sodium (Ceftriaxone Sodium 2 Gm Vial) 2 gm IVPUSH Q24H [facility] Last Admin: 05/18/24 12:14 Dose: 2 gm Documented By: CELESTINE Clonidine HCl (Clonidine Hcl 0.1 Mg Tablet) 0.1 mg PO BID PRN; Protocol PRN Reason: anxiety/restlessness Enoxaparin Sodium (Enoxaparin Sodium 40 Mg/0.4 Ml Syringe) 40 mg SUBCUT Q24H [facility] Last Admin: 05/18/24 15:26 Dose: 40 mg Documented By: CELESTINE Magnesium Hydroxide (Milk Of Magnesia 30 Ml Oral.Susp) 30 ml PO DAILY PRN PRN Reason: Constipation Last Admin: 05/18/24 03:12 Dose: 30 ml Documented By: LUIS M Melatonin (Melatonin 3 Mg Tablet) 6 mg PO BEDTIME PRN PRN Reason: Insomnia Methadone HCl (Methadone Hcl 20 Mg/2 Ml Oral.Conc) 50 mg PO DAILY@0800 [facility] Last Admin: 05/19/24 08:06 Dose: 50 mg Documented By: ROMAIN Co-signed By: LAM Morphine Sulfate (Morphine Sulfate 4 Mg/Ml Cartridge) 4 mg IVPUSH Q4H PRN; Protocol PRN Reason: Pain, Severe (Pain Scale 7-10) Last Admin: 05/19/24 08:08 Dose: 4 mg Documented By: ROMAIN Nicotine (Nicotine 21 Mg Patch.Td24) 21 mg TRANSDERMA DAILY [facility] Last Admin: 05/19/24 08:07 Dose: 21 mg Documented By: ROMAIN Sodium Chloride (0.9 % Sodium Chloride Flush 3 Ml Syringe) 3 ml IVFLUSH QSHIFT [facility] Last Admin: 05/19/24 08:11 Dose: 3 ml Documented By: ROMAIN Labs 05/19/24 06:36 05/19/24 06:36 Labs: Laboratory Results - last 24 hr 05/19/24 06:36 MCV 92.5 MCH 31.3 MCHC 33.9 RDW 13.0 Plt Count 293 MPV 8.6 L Absolute Nucleated RBC 0.000 Nucleated RBC % (auto) 0.0 Anion Gap 11 L Estim Creat Clear Calc 116.6 Estimated GFR > 60 Random Glucose 81 Calcium 8.4 Microbiology Microbiology Results: Microbiology 05/17/24 13:10 Blood Culture - Preliminary Blood - Venous No growth after 24 hours. 05/17/24 13:10 Blood Culture - Preliminary Blood - Venous No growth after 24 hours. Procedures Date of Service Date of Service: 05/19/24 Progress Note: A&P Assessment and plan (1) Cellulitis of right thigh: Status: Acute Assessment and Plan: Area of cellulitis has improved significantly Does not appear to need I and D at this time White count down No area of fluctuance Continue antibiotics Also being treated for pneumonia Time Spent With Patient Time: Total time managing care of this patient today ____ minutes. Quality Stroke Does the patient have a stroke diagnosis?: No VTE Prior VTE?: No VTE Risk Level:: Medical - moderate - high VTE Device Contraindication: N/A - Device Ordered VTE Drug Contraindication: N/A - Med Ordered
[2024-05-19] MEDS: Ibuprofen 600 MG TABLET PO ×2 (12:23→20:32)
[2024-05-19] MEDS: cefTRIAXone sodium 2 GM VIAL IVPUSH (12:25)
--- NOTE | 2024-05-19 13:36 | MHC.RECOVRN ---
Met with pt to follow up. Pt sitting in bed, awake, alert, easily engages in conversation. Pt reports continued withdrawal symptoms including diaphoresis, chills, anxiety. Would like to continue methadone titration. MQ aware.
--- NOTE | 2024-05-19 13:46 | MHC.RECOVRN ---
Pts referral sent to [facility] to continue receiving methadone after discharge.
--- NOTE | 2024-05-19 14:00 | P.PNIM_ITS ---
Subjective Subjective Date of Service: 05/19/24 Interval History: no fever R thigh redness/swelling improved Review of Systems Review of Systems: Yes all other systems are reviewed and are negative Physical Exam 2 Vital Signs: Vital Signs: Last Vital Signs Temp 96.8 F 05/19/24 12:00 Pulse 82 05/19/24 12:00 Resp 18 05/19/24 12:00 BP 116/8 L 05/19/24 12:00 Pulse Ox 96 05/19/24 12:00 O2 Del Method Room Air 05/19/24 12:00 BMI result Body Mass Index 23.8 Gen: in no acute distress HEENT: sclera anicteric, moist mucus membranes Neck: supple Lungs: clear to auscultation bilaterally Heart: regular rate and rhythm, no murmurs Abd: soft, non-tender, non-distended Ext: no edema Skin: warm/well-perfused, R thigh with erythema and induration, no fluctuance Neuro: alert and oriented x3, no focal findings Psych: appropriate affect Objective Data Active Medications Acetaminophen (Acetaminophen 325 Mg Tablet) 650 mg PO Q6H PRN PRN Reason: Pain, Mild 1-3,fever,headache Last Admin: 05/18/24 07:49 Dose: 650 mg Documented By: MAKEDA Calcium Carbonate (Calcium Carbonate 750 Mg Tab.Chew) 750 mg PO Q4H PRN PRN Reason: Heartburn Ceftriaxone Sodium (Ceftriaxone Sodium 2 Gm Vial) 2 gm IVPUSH Q24H [facility] Last Admin: 05/19/24 12:25 Dose: 2 gm Documented By: ROMAIN Clonidine HCl (Clonidine Hcl 0.1 Mg Tablet) 0.1 mg PO BID PRN; Protocol PRN Reason: anxiety/restlessness Enoxaparin Sodium (Enoxaparin Sodium 40 Mg/0.4 Ml Syringe) 40 mg SUBCUT Q24H [facility] Last Admin: 05/18/24 15:26 Dose: 40 mg Documented By: DOBROB Gabapentin (Gabapentin 100 Mg Capsule) 100 mg PO TID [facility] Ibuprofen (Ibuprofen 600 Mg Tablet) 600 mg PO Q6H PRN PRN Reason: Pain, Moderate(Pain Scale 4-6) Last Admin: 05/19/24 12:23 Dose: 600 mg Documented By: ROMAIN Magnesium Hydroxide (Milk Of Magnesia 30 Ml Oral.Susp) 30 ml PO DAILY PRN PRN Reason: Constipation Last Admin: 05/18/24 03:12 Dose: 30 ml Documented By: LUIS M Melatonin (Melatonin 3 Mg Tablet) 6 mg PO BEDTIME PRN PRN Reason: Insomnia Methadone HCl (Methadone Hcl 20 Mg/2 Ml Oral.Conc) 50 mg PO DAILY@0800 [facility] Last Admin: 05/19/24 08:06 Dose: 50 mg Documented By: ROMAIN Co-signed By: LAM Morphine Sulfate (Morphine Sulfate 4 Mg/Ml Cartridge) 4 mg IVPUSH Q4H PRN; Protocol PRN Reason: Pain, Severe (Pain Scale 7-10) Last Admin: 05/19/24 12:24 Dose: 4 mg Documented By: ROMAIN Nicotine (Nicotine 21 Mg Patch.Td24) 21 mg TRANSDERMA DAILY [facility] Last Admin: 05/19/24 08:07 Dose: 21 mg Documented By: ROMAIN Sodium Chloride (0.9 % Sodium Chloride Flush 3 Ml Syringe) 3 ml IVFLUSH QSHIFT [facility] Last Admin: 05/19/24 12:25 Dose: 3 ml Documented By: ROMAIN Labs 05/19/24 06:36 05/19/24 06:36 Labs: Laboratory Results - last 24 hr 05/19/24 05/19/24 06:31 06:36 MCV 92.5 MCH 31.3 MCHC 33.9 RDW 13.0 Plt Count 293 MPV 8.6 L Absolute Nucleated RBC 0.000 Nucleated RBC % (auto) 0.0 Anion Gap 11 L Estim Creat Clear Calc 116.6 Estimated GFR > 60 Random Glucose 81 Calcium 8.4 Hepatitis A IgM Ab Nonreactive Hep Bs Antigen Negative Hep Bs Antibody REACTIVE Hep B Core Total Ab Nonreactive Hepatitis C Ab (EIA) Reactive H HIV 1&2 Ab/P24 Ag 4thGn Nonreactive Microbiology Microbiology Results: Microbiology 05/17/24 13:10 Blood Culture - Preliminary Blood - Venous No growth after 24 hours. 05/17/24 13:10 Blood Culture - Preliminary Blood - Venous No growth after 24 hours. Assessment and Plan (1) Bacteremia: Status: Acute (2) Cellulitis of right thigh: Status: Acute Plan d3 for 34yo F with IDU presenting with chest pain, found to have group A Streptococcus bacteremia sepsis due to group A Streptococcus bacteremia/cellulitis/pneumonia - ceftriaxone 4/3- - surveillance cultures from 05/17 no growth to date - ID consult pending - Gen Surg following, no I+D needed seizure history - resume gabapentin 100 mg tid, increase as needed OUD - methadone AUD - last CIWA 0, no withdrawal HCV - viral load pending subclinical hypothyroidism - recheck TFTs in 4-6 wk tobacco abuse - NRT VTE prophylaxis - enoxaparin dispo - TBD Total time managing care of this patient today: 35 minutes. Quality Stroke Does the patient have a stroke diagnosis?: No VTE Prior VTE?: No VTE Risk Level:: Medical - moderate - high VTE Device Contraindication: N/A - Device Ordered VTE Drug Contraindication: N/A - Med Ordered
[2024-05-19] MEDS: Gabapentin 100 MG CAPSULE PO ×2 (15:31→20:32)
--- NOTE | 2024-05-19 18:32 | P.PNADD_ITS ---
Subjective Subjective Date of Service: 05/19/24 Reason For Visit: Bacteremia,pneumonia,sepsis Interim History: Patient seen in follow up for OUD and AUD Awake, alert, enanged in interview Tolerating methadone 50mg daily--would like to continue titrating dose No alcohol withdrawal sx reported or observed Appetite and sleep okay Denies nausea Review of Systems Constitutional: Reports as per HPI Mental Status Exam Mental Status Exam Patient Appearance: Well Grooomed and Appropriate Level of Consciousness: Awake, Appropriate and Alert Patient Behavior: Appropriate and Talkative Mood Description: Calm Affect Description: Calm Speech Pattern: Clear Thought Process: Intact Thought Content: positive for Intact Diagnostics Vital Signs (24Hr): Vital Signs - 24 hr 05/18/24 19:30 05/18/24 23:19 05/19/24 02:57 Temperature 99.1 F 98.0 F 99.0 F Pulse Rate 111 H 98 94 Respiratory Rate 18 18 18 Blood Pressure 137/87 131/89 123/81 Pulse Oximetry 93 93 92 Oxygen Delivery Method Room Air Room Air Room Air 05/19/24 07:19 05/19/24 12:00 05/19/24 15:10 Temperature 96.9 F 96.8 F 96.9 F Pulse Rate 95 82 81 Respiratory Rate 18 18 18 Blood Pressure 135/89 116/8 L 134/81 Pulse Oximetry 95 96 95 Oxygen Delivery Method Room Air Room Air Room Air BMI result Body Mass Index 23.8 Labs 05/19/24 06:36 05/19/24 06:36 Labs: Laboratory Results - last 48 hr 05/18/24 05/19/24 05/19/24 04:49 06:31 06:36 WBC 15.0 H 11.9 H RBC 3.76 L 4.02 L Hgb 12.0 12.6 Hct 34.1 L 37.2 MCV 90.7 92.5 MCH 31.9 31.3 MCHC 35.2 H 33.9 RDW 12.9 13.0 Plt Count 259 293 MPV 8.8 L 8.6 L Absolute Nucleated RBC 0.000 0.000 Nucleated RBC % (auto) 0.0 0.0 Sodium 140 140 Potassium 3.3 3.5 Chloride 106 104 Carbon Dioxide 26 29 Anion Gap 11 L 11 L BUN 8 L 6 L Creatinine 0.64 0.60 Estim Creat Clear Calc 109.3 116.6 Estimated GFR > 60 > 60 Random Glucose 93 81 Calcium 8.2 L D 8.4 Hepatitis A IgM Ab Nonreactive Hep Bs Antigen Negative Hep Bs Antibody REACTIVE Hep B Core Total Ab Nonreactive Hepatitis C Ab (EIA) Reactive H HIV 1&2 Ab/P24 Ag 4thGn Nonreactive Medications Medications Current Medications Acetaminophen (Acetaminophen 325 Mg Tablet) 650 mg PO Q6H PRN PRN Reason: Pain, Mild 1-3,fever,headache Last Admin: 05/18/24 07:49 Dose: 650 mg Calcium Carbonate (Calcium Carbonate 750 Mg Tab.Chew) 750 mg PO Q4H PRN PRN Reason: Heartburn Ceftriaxone Sodium (Ceftriaxone Sodium 2 Gm Vial) 2 gm IVPUSH Q24H [facility] Last Admin: 05/19/24 12:25 Dose: 2 gm Clonidine HCl (Clonidine Hcl 0.1 Mg Tablet) 0.1 mg PO BID PRN; Protocol PRN Reason: anxiety/restlessness Enoxaparin Sodium (Enoxaparin Sodium 40 Mg/0.4 Ml Syringe) 40 mg SUBCUT Q24H [facility] Last Admin: 05/19/24 15:33 Dose: Not Given Gabapentin (Gabapentin 100 Mg Capsule) 100 mg PO TID [facility] Last Admin: 05/19/24 15:31 Dose: 100 mg Ibuprofen (Ibuprofen 600 Mg Tablet) 600 mg PO Q6H PRN PRN Reason: Pain, Moderate(Pain Scale 4-6) Last Admin: 05/19/24 12:23 Dose: 600 mg Magnesium Hydroxide (Milk Of Magnesia 30 Ml Oral.Susp) 30 ml PO DAILY PRN PRN Reason: Constipation Last Admin: 05/18/24 03:12 Dose: 30 ml Melatonin (Melatonin 3 Mg Tablet) 6 mg PO BEDTIME PRN PRN Reason: Insomnia Methadone HCl (Methadone Hcl 20 Mg/2 Ml Oral.Conc) 60 mg PO DAILY@0800 [facility] Morphine Sulfate (Morphine Sulfate 4 Mg/Ml Cartridge) 4 mg IVPUSH Q4H PRN; Protocol PRN Reason: Pain, Severe (Pain Scale 7-10) Last Admin: 05/19/24 16:47 Dose: 4 mg Nicotine (Nicotine 21 Mg Patch.Td24) 21 mg TRANSDERMA DAILY [facility] Last Admin: 05/19/24 08:07 Dose: 21 mg Sodium Chloride (0.9 % Sodium Chloride Flush 3 Ml Syringe) 3 ml IVFLUSH QSHIFT [facility] Last Admin: 05/19/24 12:25 Dose: 3 ml Allergies Allergies Allergy/AdvReac Type Severity Reaction Status Date / Time No Known Allergies Allergy Verified 05/17/24 10:06 [No Known Allergies*] Assessment & Plan Assessment & Plan (1) Opioid use disorder, severe, dependence: Status: Acute Code(s): F11.20 - Opioid dependence, uncomplicated Assessment and Plan: * methadone 60mg in AM (05/20) * Referral sent to [facility] for continuation of treatment once discharged (2) Alcohol use disorder, moderate, dependence: Status: Acute Code(s): F10.20 - Alcohol dependence, uncomplicated Assessment and Plan: * no withdrawal sx reported --and CIWA continues to be 0 Total time managing care of this patient today _25___ minutes.
--- NOTE | 2024-05-19 22:25 | P.CNID_ITS ---
History of Present Illness Data of Consult Service Date: 05/19/24 Requesting physician: Asha Addison Primary Care Provider: None Physician HPI Reason for consult: Group A strep bacteremia She presents with right thigh pain and redness for a week. She has injected into thigh area. She has Group A strep infection blood 4/1 x 2. She feels better although some raised area remains on thight. Review of Systems 2 Review of Systems: Yes all other systems are reviewed and are negative PMFSH Past Medical History Medical History Cellulitis of right thigh Alcohol abuse Polysubstance (including opioids) dependence with physiol dependence Asthma Hypothyroid Family History Family history: reviewed and not pertinent Social History Social History Household Members: Other Housing: House Do you presently have visiting nurse or other home services: No Alcohol intake: current Alcohol intake frequency: a few times a week Alcohol type: hard liquor Comment: steady gait. refusing bed alarm Patient Tobacco Use Status: Current everyday Tobacco user Substance Use Type: Crack/Cocaine and Heroin service: No Meds Allergies Allergy/AdvReac Type Severity Reaction Status Date / Time No Known Allergies Allergy Verified 05/17/24 10:06 [No Known Allergies*] Active Medications: Current Medications Acetaminophen (Acetaminophen 325 Mg Tablet) 650 mg PO Q6H PRN PRN Reason: Pain, Mild 1-3,fever,headache Last Admin: 05/18/24 07:49 Dose: 650 mg Calcium Carbonate (Calcium Carbonate 750 Mg Tab.Chew) 750 mg PO Q4H PRN PRN Reason: Heartburn Ceftriaxone Sodium (Ceftriaxone Sodium 2 Gm Vial) [address] [facility] Last Admin: 05/19/24 12:25 Dose: 2 gm Clonidine HCl (Clonidine Hcl 0.1 Mg Tablet) 0.1 mg PO BID PRN; Protocol PRN Reason: anxiety/restlessness Enoxaparin Sodium (Enoxaparin Sodium 40 Mg/0.4 Ml Syringe) [address] [facility] Last Admin: 05/19/24 15:33 Dose: Not Given Gabapentin (Gabapentin 100 Mg Capsule) [address] [facility] Last Admin: 05/19/24 20:32 Dose: 100 mg Ibuprofen (Ibuprofen 600 Mg Tablet) 600 mg PO Q6H PRN PRN Reason: Pain, Moderate(Pain Scale 4-6) Last Admin: 05/19/24 20:32 Dose: 600 mg Magnesium Hydroxide (Milk Of Magnesia 30 Ml Oral.Susp) 30 ml PO DAILY PRN PRN Reason: Constipation Last Admin: 05/18/24 03:12 Dose: 30 ml Melatonin (Melatonin 3 Mg Tablet) 6 mg PO BEDTIME PRN PRN Reason: Insomnia Methadone HCl (Methadone Hcl 20 Mg/2 Ml Oral.Conc) 60 mg PO DAILY@0800 [facility] Morphine Sulfate (Morphine Sulfate 4 Mg/Ml Cartridge) 4 mg IVPUSH Q4H PRN; Protocol PRN Reason: Pain, Severe (Pain Scale 7-10) Last Admin: 05/19/24 21:14 Dose: 4 mg Nicotine (Nicotine 21 Mg Patch.Td24) [address] [facility] Last Admin: 05/19/24 08:07 Dose: 21 mg Sodium Chloride (0.9 % Sodium Chloride Flush 3 Ml Syringe) [address] [facility] Last Admin: 05/19/24 12:25 Dose: 3 ml Physical Exam 2 Vital Signs: Vital Signs: Last Vital Signs Temp 96.9 F 05/19/24 19:16 Pulse 99 05/19/24 19:16 Resp 18 05/19/24 21:14 BP 127/87 05/19/24 19:16 Pulse Ox 96 05/19/24 19:16 O2 Del Method Room Air 05/19/24 19:16 BMI result Body Mass Index 23.8 Const: General: cooperative HEENT: Head: Yes normal to inspection Face and sinus: Yes normal facial exam Mouth: Normal oral and palatal mucosa present Teeth and gingiva: d entition normal Eyes: General: appearance normal, both eyes and all related structures P upils: Equal, round and reactive pupils present Resp: Effort & Inspection: normal respiratory effort Cardio: Rate: regular rate Rhythm: regular rhythm GI: Palpation (GI): Soft to palpation and nontender : General: Yes no CVA tenderness Back/Spine/Pelvis: Back: no CVA tenderness Skin: General skin exam: no rashes or lesions noted Neuro: General: moves all extremities Cranial nerves: Yes Equal, round and reactive pupils present Extrem: Other: swelling but cool area right lateral thigh,receding cellulitis Psych: Appearance: grossly normal Results Labs 05/19/24 06:36 05/19/24 06:36 Labs: Short CBC 05/19/24 Range/Units 06:36 WBC 11.9 H (4.8-10.8) X10*3/uL Hgb 12.6 (12.0-16.0) g/dl Hct 37.2 (37.0-47.0) % Plt Count 293 (160-400) X10*3/uL BMP 05/19/24 06:36 Sodium 140 Potassium 3.5 Chloride 104 Carbon Dioxide 29 BUN 6 L Creatinine 0.60 Calcium 8.4 Microbiology Microbiology Results: Microbiology 05/17/24 13:10 Blood - Venous Blood Culture - Preliminary No growth after 48 hours. 05/17/24 13:10 Blood - Venous Blood Culture - Preliminary No growth after 48 hours. Assessment and Plan (1) Cellulitis of right thigh: Status: Acute (2) Bacteremia: Status: Acute Plan Strep A bacteremia She has IV drug use as source as uses saliva on works There is no endocarditis seen. Would continue Ceftriaxone As long as continues to improve and no drainage needs to be done would switch to po cephalosporins for total 14 days.
[2024-05-19] MEDS: Melatonin 3 MG TABLET 6 MG PO (23:33)
[2024-05-20 01:20] VITALS: RESP 17
[2024-05-20] MEDS: Morphine Sulfate 4 MG/ML CARTRIDGE IVPUSH ×3 (01:20→10:32)
[2024-05-20 03:46] VITALS: BP 101/70; PULSE 68; RESP 18; TEMP 36.6; O2SAT 94
[2024-05-20 05:56] VITALS: BP 113/72; PULSE 67; RESP 18; O2SAT 97
[2024-05-20 07:14] LABS: Anion Gap 14 (12-20); Blood Urea Nitrogen 11 mg/dL (9-16); Calcium 8.4 mg/dL (8.4-10.2); Carbon Dioxide 26 mmol/L (22-29); Chloride 108 mmol/L (96-108); Creatinine Clr Calc Pharmacy 116.6; Estimated Glomerular Filt Rate > 60; Glucose Random 77 mg/dL (60-115); Potassium 3.5 mmol/L (3.3-5.1); Sodium 144 mmol/L (135-145)
[2024-05-20 07:16] VITALS: BP 109/71; PULSE 72; RESP 16; TEMP 36.3; O2SAT 100
[2024-05-20] MEDS: Gabapentin 100 MG CAPSULE PO (08:02)
[2024-05-20] MEDS: Nicotine 21 MG PATCH.TD24 TRANSDERMA (08:02)
[2024-05-20] MEDS: methADONE HCl 20 MG/2 ML ORAL.CONC 60 MG PO (08:02)
[2024-05-20] MEDS: 0.9 % Sodium Chloride Flush 3 ML SYRINGE IVFLUSH (08:04)
--- NOTE | 2024-05-20 09:38 | MHC.CM.PN ---
Patient is discharged to home today self care. Patient has arranged for private transport home.
--- NOTE | 2024-05-20 11:00 | P.DS_ITS ---
DS: Providers Provider Date of Service: 05/20/24 Date of admission: 05/17/24 15:04 Date of discharge: 05/20/24 Primary care physician: None Physician Consults: 05/17/24 15:04 Consult to General Surgery Routine Consulting Provider: [facility] Reason for consultation: R thigh abscess, IVDU 05/17/24 15:10 Addiction Medicine Provider Routine Consulting Provider: Addiction Covering Reason for consultation: opiate use disorder, interested in methadone 05/18/24 08:40 Inpt - Recovery Team Routine Comment: Reason for consultation: EDER eval 05/18/24 14:11 Consult to Infectious Diseases Routine Consulting Provider: [facility] Infect[facility] Disease [facility] Reason for consultation: group A bacteremia, IVDU DS: Diagnosis Discharge Diagnosis (1) Cellulitis of right thigh: Status: Acute (2) Bacteremia: Status: Acute (3) Opioid use disorder, severe, dependence: Status: Acute (4) Alcohol use disorder, moderate, dependence: Status: Acute (5) Left lower lobe pneumonia: Status: Acute (6) Group A streptococcal infection: Status: Acute (7) Sepsis: Status: Acute DS: Summary Hospital Course Hospital Course: From the history and physical by the admitting hospitalist, Marcellus Hoffman MD, 05/17/24: The patient is a 34-year-old female with a past medical history of reported seizures on gabapentin, hypothyroidism not on replacement for many years, active polysubstance abuse, heavy alcohol intake over the last month who presents to [facility] ED today, 1 day after leaving against medical advice. The patient reports left-sided chest pain which has been progressively increasing over the last 4 days prior to hospitalization. Reports a chronic cough. She reports pleuritic chest pain. She reports subjective fevers and chills. She reports generalized malaise. Patient reports polysubstance abuse including opiates as well as crack/cocaine. She reports injection use when using cocaine. She reports last use several days prior. She reports injecting in her right thigh with subsequent erythema and induration. Furthermore, the patient also endorses heavy alcohol use of 1 pt daily for the last month. In regards to her medical history, the patient reports that she is on gabapentin due to seizures and has been on it for nearly 10 years. She also reports a history of hypothyroidism and was previously on Synthroid but has not taken it for many years. During her ED visit on 05/16/2024, the patient was diagnosed with what appeared to be a left-sided pneumonia. She had blood cultures drawn which have now turned positive for Gram-positive cocci in chains. Further workup reveals leukocytosis of 19,000. Vitals show tachycardia, tachypnea and a T-max of 100.9 degrees. The patient has had repeat blood cultures drawn, has been given methadone, IV Toradol and IV ceftriaxone. She will now be admitted for further care. 34yo F with IDU presenting with chest pain, found to have group A Streptococcus bacteremia, admitted to the medical-surgical unit. Hospital course by problem: sepsis due to group A Streptococcus bacteremia/cellulitis/pneumonia - Treated with ceftriaxone 05/17-05/20/24. Repeat blood cultures from 05/17 negative. Infectious Disease consulted and recommended 14 days of total treatment with PO cephalosporin. She was discharged on cefadroxil for 11 more days. General Surgery was consulted and no I+D was indicated as she had no organized abscess. seizure history - Resumed gabapentin 100 mg tid OUD - Addiction Medicine consulted. Started on methadone, titrated to 60 mg/d, and referred to [facility]. AUD - Did not require medical treatment for alcohol withdrawal. HCV - Antibody positive. Viral load pending and she will need to establish primary care as soon as possible. subclinical hypothyroidism - TSH high and free T4 normal. Recheck TFTs in 4-6 wk. tobacco abuse - Started on NRT. Time Attestation Discharge Coordination Time (in mins): 35 Quality: Safe Use of Opioids Does Pt have an Active Cancer Diagnosis on the Problem List?: No Quality: Stroke Does the patient have a stroke diagnosis?: No Physical Exam Vital Signs: Vital Signs: Last Vital Signs Temp 97.4 F 05/20/24 07:16 Pulse 72 05/20/24 07:16 Resp 16 05/20/24 07:16 BP 109/71 05/20/24 07:16 Pulse Ox 100 05/20/24 07:16 O2 Del Method Room Air 05/20/24 07:16 BMI result Body Mass Index 23.8 Gen: in no acute distress HEENT: sclera anicteric, moist mucus membranes Neck: supple Lungs: clear to auscultation bilaterally Heart: regular rate and rhythm, no murmurs Abd: soft, non-tender, non-distended Ext: no edema Skin: warm/well-perfused, R thigh with erythema and induration, no fluctuance Neuro: alert and oriented x3, no focal findings Psych: appropriate affect DS: Data Data Completed and Pending Completed studies during hospitalization [Text1]: Laboratory Results WBC 11.9 X10*3/uL (4.8-10.8) H 05/19/24 06:36 RBC 4.02 X10*6/uL (4.20-5.50) L 05/19/24 06:36 Hgb 12.6 g/dl (12.0-16.0) 05/19/24 06:36 Hct 37.2 % (37.0-47.0) 05/19/24 06:36 MCV 92.5 fL (80.0-98.0) 05/19/24 06:36 MCH 31.3 pg (27.0-33.0) 05/19/24 06:36 MCHC 33.9 g/dl (31.0-35.0) 05/19/24 06:36 RDW 13.0 % (11.0-16.0) 05/19/24 06:36 Plt Count 293 X10*3/uL (160-400) 05/19/24 06:36 MPV 8.6 fL (9.4-12.3) L 05/19/24 06:36 Immature Gran % (Auto) 0.6 % (0.0-0.4) H 05/17/24 13:10 Neut % (Auto) 89.8 % (45-73) H 05/17/24 13:10 Lymph % (Auto) 5.4 % (20-40) L 05/17/24 13:10 [place] % (Auto) 3.8 % (2-11) 05/17/24 13:10 Eos % (Auto) 0.1 % (0-4) 05/17/24 13:10 Baso % (Auto) 0.3 % (0-2) 05/17/24 13:10 Lymph # (Auto) 1.0 X10*3/uL (1.2-4.9) L 05/17/24 13:10 [place] # (Auto) 0.7 X10*3/uL (0.1-1.2) 05/17/24 13:10 Eos # (Auto) 0.0 X10*3/uL (0.0-0.4) 05/17/24 13:10 Baso # (Auto) 0.1 X10*3/uL (0.0-0.2) 05/17/24 13:10 Abs Immat Gran (auto) 0.12 X10*3/uL (0.00-0.03) H 05/17/24 13:10 Absolute Neuts (auto) 17.4 x10*3/uL (2.0-8.3) H 05/17/24 13:10 Absolute Nucleated RBC 0.000 X10*3/uL (0.0-0.012) 05/19/24 06:36 Nucleated RBC % (auto) 0.0 /100WBC (0.0-0.2) 05/19/24 06:36 Sodium 144 mmol/L (135-145) 05/20/24 06:40 Potassium 3.5 mmol/L (3.3-5.1) 05/20/24 06:40 Chloride 108 mmol/L (96-108) 05/20/24 06:40 Carbon Dioxide 26 mmol/L (22-29) 05/20/24 06:40 Anion Gap 14 (12-20) 05/20/24 06:40 BUN 11 mg/dL (9-16) 05/20/24 06:40 Creatinine 0.60 mg/dL (0.5-1.4) 05/20/24 06:40 Estim Creat Clear Calc 116.6 05/20/24 06:40 Estimated GFR > 60 05/20/24 06:40 Random Glucose 77 mg/dL (60-115) 05/20/24 06:40 Lactic Acid 1.6 mmol/L (0.5-2.0) 05/17/24 13:10 Calcium 8.4 mg/dL (8.4-10.2) 05/20/24 06:40 Total Bilirubin 0.4 mg/dL (0.0-1.0) 05/17/24 13:10 AST 54 U/L (5-31) H 05/17/24 13:10 ALT 19 U/L (0-31) 05/17/24 13:10 Alkaline Phosphatase 122 U/L (39-117) H 05/17/24 13:10 Troponin I High Sens < 2.7 ng/L (<3.5-17.0) 05/17/24 13:10 Total Protein 7.2 g/dL (6.5-8.0) 05/17/24 13:10 Albumin 3.5 g/dL (3.5-5.0) 05/17/24 13:10 Procalcitonin 0.30 ng/mL 05/17/24 13:10 TSH 10.46 uIU/mL (0.32-4.0) H 05/17/24 13:10 Free T4 0.73 ng/dL (0.71-1.85) 05/17/24 13:10 Hepatitis A IgM Ab Nonreactive (Nonreactive) 05/19/24 06:31 Hep Bs Antigen Negative (Negative) 05/19/24 06:36 Hep Bs Antibody REACTIVE (Nonreactive) 05/19/24 06:36 Hep B Core Total Ab Nonreactive (Nonreactive) 05/19/24 06:36 Hepatitis C Ab (EIA) Reactive (Nonreactive) H 05/19/24 06:36 HIV 1&2 Ab/P24 Ag 4thGn Nonreactive (Nonreactive) 05/19/24 06:36 Discharge Plan Discharge Anticipated Discharge Date/Time: 05/20/24 10:54 Patient Disposition: Home, Self-Care Discharge Diagnosis: group A streptococcal bacteremia, pneumonia, and cellulitis opioid use disorder hepatitis C antibody positive Referrals: [facility] [Provider Group] - 1 Week Physician,Afsaneh [Primary Care Provider] - 1 Week Discharge Medications: New nicotine 21 mg/24 hr Patch 24 Hour 21 mg transdermal DAILY Qty: 30 0RF gabapentin 100 mg Capsule 100 mg PO TID Qty: 90 0RF methadone [Methadose] 10 mg/mL Concentrate 60 mg PO DAILY@0800 Qty: 1 0RF Rx Instructions: Partial Fill upon patient request. ibuprofen 600 mg Tablet 600 mg PO Q6H PRN (Reason: Pain, Moderate(Pain Scale 4-6)) Qty: 30 0RF cefadroxil 1 gram tablet 1,000 mg PO BID Qty: 22 0RF Discontinued doxycycline hyclate 100 mg capsule 100 mg PO BID Qty: 13 0RF cefuroxime axetil 500 mg tablet 500 mg PO BID Qty: 14 0RF Discharge Orders: Discharge Order (Routine); Ordered 05/20/24 Ordered By: Asha Addison Diet: Advance to usual diet Activity on Discharge: As tolerated Stand Alone Forms: Patient Portal Discharge page Print Language: Slovak Other Ambulatory Orders: TSH reflex Free T4 (Routine) Timeframe: 1 Week Facility: [facility] - Location: Laboratory Ordered By: Asha Addison Care Plan Goals: cure of infection sobriety Health Concerns: group A streptococcal bacteremia, pneumonia, and cellulitis opioid use disorder hepatitis C antibody positive Plan of Treatment: take cefadroxil 1 gram twice daily for 11 days methadone through [facility] avoid substance abuse nicotine patch establish primary care as soon as possible hepatitis C viral load pending recheck thyroid function in 4-6 weeks Assessment: See Discharge Summary.
--- NOTE | 2024-05-20 11:14 | MHC.CM.PN ---
Patient is discharged today. Methadone will continue @ [facility]. RN provided Last dose letter. Patient has arranged for transportation home.
[2024-05-20] MEDS: cefTRIAXone sodium 2 GM VIAL IVPUSH (11:30)
--- NOTE | 2024-05-20 12:05 | MHC.RECOVRN ---
Met with pt in [phone] to follow up and provide support.? Pt awake, alert, easily engages in conversation, getting dressed and ready for D/C. Pt reports fthat she plans on continuing her methadone tx on an outpt. basis. She has clinic information for outpt f/u and will receive last dose letter from nurse. She is concerned that the clinic will turn her away due to not having picture ID Resources provided to pt. re: where to get assist with obtaining a photo ID Pt reports she has Narcan.?? Pt denies other concerns at this time.? T/w available as needed.
[2024-05-22 14:52] LABS: HCV Log PCR <1.18 NOT DETECTED Log IU/mL (NOT DETECTED); HepC Viral Load <15 NOT DETECTED IU/mL (NOT DETECTED)
[2024-05-24 04:42] LABS: Hepatitis A Antibody IgG REACTIVE (Nonreactive); ~Hepatitis A Antibody IgG 1.78 S/CO (0.00-0.99)
== END 2024-05-20 12:11 | disposition home or self-care (01) | DRG 720 ==
LOC: HO.ED 14:22 → HO.EDOVER 15:09 → HO.S3 05-18 07:17
PROVIDERS: Emergency Medicine; Nurse Practitioner Psychiatric/Mental Health; Admitting Provider Family Medicine; Emergency Provider Emergency Medicine; Visit Provider Family Medicine
DX: A40.0 Sepsis due to streptococcus, group A (principal); J18.9 Pneumonia, unspecified organism; L03.115 Cellulitis of right lower limb; F11.20 Opioid dependence, uncomplicated; E03.8 Other specified hypothyroidism; B19.20 Unspecified viral hepatitis C without hepatic coma; F17.210 Nicotine dependence, cigarettes, uncomplicated; Z71.6 Tobacco abuse counseling; F19.10 Other psychoactive substance abuse, uncomplicated; Z79.890 Hormone replacement therapy; Z79.899 Other long term (current) drug therapy
CPT/HCPCS: 36415; 80048; 80053; 82565; 83605; 84145; 84439; 84443; 84484; 85025; 85027; 86704; 86706; 86708; 86709; 86803; 87040; 87340; 87389; 87522; 93005; 93306; 99285; J0696; J1650; J1885; J2270; J3370; J3371; J7120; Q9957; S9485

== ENCOUNTER → 2024-05-17 12:14 | Outpatient (BNV) | payer MEDICAID, SELFPAY | PROVIDERS: Admitting Provider Family Medicine; Emergency Provider Emergency Medicine; Visit Provider Internal Medicine | DX: R00.0 Tachycardia, unspecified (principal) | CPT/HCPCS: 93010 ==

== ENCOUNTER 2024-05-17 15:04 | Outpatient (BNV) | payer MEDICAID, SELFPAY | END 2024-05-19 07:00 | PROVIDERS: Admitting Provider Family Medicine; Emergency Provider Emergency Medicine; Visit Provider Internal Medicine | DX: R78.81 Bacteremia (principal) | CPT/HCPCS: 93306 ==

== ENCOUNTER → 2024-05-17 15:04 | Outpatient (BNV) | payer MEDICAID, SELFPAY | PROVIDERS: Admitting Provider Family Medicine; Emergency Provider Emergency Medicine; Visit Provider Physician Assistant Surgical | DX: L03.115 Cellulitis of right lower limb (principal) | CPT/HCPCS: 99222; 99232 ==

== ENCOUNTER → 2024-05-17 15:04 | Outpatient (BNV) | payer OTHER, SELFPAY | PROVIDERS: Admitting Provider Family Medicine; Emergency Provider Emergency Medicine; Visit Provider Nurse Practitioner Psychiatric/Mental Health | DX: F11.20 Opioid dependence, uncomplicated (principal); F10.20 Alcohol dependence, uncomplicated | CPT/HCPCS: 99222; 99231 ==

== ENCOUNTER → 2024-05-17 15:04 | Outpatient (BNV) | payer MEDICAID, SELFPAY | PROVIDERS: Admitting Provider Family Medicine; Emergency Provider Emergency Medicine; Visit Provider Family Medicine | DX: A40.0 Sepsis due to streptococcus, group A (principal); L03.115 Cellulitis of right lower limb; F11.20 Opioid dependence, uncomplicated; F10.20 Alcohol dependence, uncomplicated; J18.9 Pneumonia, unspecified organism | CPT/HCPCS: 99223; 99232; 99233; 99239 ==

== ENCOUNTER → 2024-05-17 15:04 | Outpatient (BNV) | payer MEDICAID, SELFPAY | PROVIDERS: Admitting Provider Family Medicine; Emergency Provider Emergency Medicine; Visit Provider Internal Medicine | DX: L03.115 Cellulitis of right lower limb (principal); R78.81 Bacteremia | CPT/HCPCS: 99222 ==

== ENCOUNTER 2024-09-17 21:23 | Emergency (ER) | payer MEDICAID, SELFPAY ==
[2024-09-17 21:31] VITALS: BP 138/80; PULSE 120; O2SAT 95
[2024-09-17 21:36] VITALS: BP 135/88; PULSE 105; RESP 18; TEMP 37; O2SAT 97; BMI 26.6
--- NOTE | 2024-09-17 21:44 | ED_ITS ---
HPI - Overdose General Chief Complaint: Overdose Stated Complaint: OD, found on stree, narcan given, SI Time Seen by Provider: 09/17/24 21:37 Source: patient and EMS Mode of arrival: EMS Limitations: other (agitation, aggressive behavior) History of Present Illness ED Provider: Dr. Keira Ram HPI Narrative: 34 year old female with history of substance use disorder, bipolar disorder and depression presenting after an apparent accidental opioid overdose. EMS reports they are called to the scene him a patient at the [facility] festival found to be slumped over on the side of the street. She had received 4 mg of intranasal Narcan by a bystander and by the time EMS arrived, the patient was agitated and awake. She reportedly wanted to come to the hospital for evaluation. EMS r eports intermittently throughout transport, patient was somnolent and then awake. By the time she arrived to the emergency department however, patient is extremely agitated and refusing to answer questions. States ?I just want to go home? admits that she used 2 bags of heroin today. Reports that she ?sniffed them?. Uses about 1-2 bundles of heroin daily. She is also on methadone but reports her last dose was yesterday morning. Admits that she did miss the methadone clinic today. Also admits to using alcohol. Drank several nips of hard liquor. Admits to daily alcohol use as well. Denies suicidal ideations. Admits to nausea and feels as though she is in withdrawal now. MD complaint: accidental overdose Related Data Previous Rx's ?Medication ?Instructions ?Recorded cefadroxil 1 gram tablet 1,000 mg PO BID #22 tabs 07/09 fluconazole 150 mg tablet 150 mg PO Q3D PRN yeast infe ction 05/20/24 2 doses #2 tabs gabapentin 100 mg capsule 100 mg PO TID #90 caps 05/20 ibuprofen 600 mg tablet 600 mg PO Q6H PRN Pain, 07/09 Moderate(Pain Scale 4-6) #30 tabs methadone 10 mg/mL oral 60 mg (6 mL) PO DAILY@0800 # 1 mL 05/20/24 concentrate (Methadose) nicotine 21 mg/24 hr daily 21 mg transdermal DAILY #30 ea 05/20/24 transdermal patch valacyclovir 1 gram tablet 1,000 mg PO DAILY PRN cold sore 05/20/24 infection #5 tabs Allergies Allergy/AdvReac Type Severity Reaction Status Date / Time No Known Allergies (No Known Allergy Verified 09/17/24 21:42 Allergies*) Review of Systems Review of Systems: Yes Other (Patient uncooperative) [facility] Past Medical History [facility] Narrative: Daily heroin, alcohol use Medical History Alcohol use disorder, moderate, dependence Opioid use disorder, severe, dependence Bacteremia Left lower lobe pneumonia Cellulitis of right thigh Alcohol abuse Polysubstance (including opioids) dependence with physiol dependence Asthma Hypothyroid Social History Social History Household Members: Other Housing: House Do you presently have visiting nurse or other home services: No Alcohol intake: current Alcohol intake frequency: a few times a week Alcohol type: hard liquor Comment: rings appropriately, steady gait Patient Tobacco Use Status: Current everyday Tobacco user Substance Use Type: Crack/Cocaine and Heroin service: No Physical Exam Exam: Exam: GENERAL: Anxious, agitated, uncontrolled movements. SKIN: Normal skin color for ethnicity, warm, dry, multiple skin excoriations of various degrees of healing, no crepitus, no petechiae, no blistering. HEENT: Normocephalic, atraumatic, no stridor, posterior oropharynx nonerythematous, poor [place] dentition, dry mucous membranes, EOMI. NECK: Soft, supple, full ROM, midline structures nontender, no step-offs, no deformities, no lymphadenopathy. CHEST: Heart regular tachycardia, no murmurs, symmetric chest rise and fall, no crepitus. PULMONARY: Clear to auscultation bilaterally, no labored breathing, no wheezes/rhales/rhonchi. ABDOMINAL: Soft, nondistended, nontender, positive bowel sounds in all quadrants. : Deferred. MUSCULOSKELETAL: Normal tone, full range of motion, no deformities, no peripheral edema. NEURO: Alert and oriented to person, CN II through XII intact, equal strength and sensation bilateral upper and lower extremities, no focal neurologic deficits. PSYCHIATRIC: Anxious affect, agitated, aggressive behavior,, poor eye contact and psychomotor agitation. Vital Signs: Vital Signs: Last Vital Signs Temp 98.6 F 09/17/24 21:36 Pulse 105 H 09/17/24 21:36 Resp 18 09/17/24 21:36 BP 135/88 09/17/24 21:36 Pulse Ox 97 09/17/24 21:36 O2 Del Method Room Air 09/17/24 21:36 BMI result Body Mass Index 26.6 Medical Decision Making Medical Decision Making MDM Narrative: Patient presents with a chief complaint of possible overdose. Differential diagnosis includes life-threatening toxidrome such as anticholinergic syndrome, serotonin syndrome, sympathomimetic, opioid induced, among others. Also includes co-ingestions, acidosis, intracranial process such as mass, hemorrhage, or CVA. Patient evaluated to determine if there is adequate GCS to maintain their airway as well as for hemodynamic stability. 9:56 PM 09/17/2024 (Dr. Keira Ram, D.O.) patient extremely agitated, requesting discharge. She is refusing any further care or observation. I do feel that she has capacity to make decisions and is maintaining her airway. Aside from tachycardia, she is hemodynamically stable. Provided with Narcan kit at discharge. Differential Diagnosis Differential Diagnoses: The differential diagnosis associated with the presentation includes (As above) Admission/Observation Consideration of admission/observation: Escalation of care including admission/observation considered Independent Interpretation I performed an independent interpretation of an: Rhythm Strip Interpretation: Sinus tachycardia Independent Historian Clinical information obtained from an independent historian. History obtained from or confirmed by: EMS Prescription Management I considered prescription management with: Other (Narcan kit) Chronic Conditions Patient?s care impacted by: Other (Bipolar disorder, depression, substance use disorder) Social Determinants Patient?s care significantly limited by Social Determinants of Health including: Inadequate housing and Alcoholism and drug addiction in family Discharge Plan Discharge Clinical Impression: Opiate overdose, Alcohol intoxication Patient Disposition: Home, Self-Care Instructions: Prescription Narcotic Overdose (ED) Additional Instructions: Keep your Narcan kit on your person at all times. Return to the emergency department for further care or treatment of opioid use disorder. Prescriptions: No Action nicotine 21 mg/24 hr Patch 24 Hour 21 mg transdermal DAILY Qty: 30 0RF gabapentin 100 mg Capsule 100 mg PO TID Qty: 90 0RF methadone [Methadose] 10 mg/mL Concentrate 60 mg PO DAILY@0800 Qty: 1 0RF Rx Instructions: Partial Fill upon patient request. ibuprofen 600 mg Tablet 600 mg PO Q6H PRN (Reason: Pain, Moderate(Pain Scale 4-6)) Qty: 30 0RF cefadroxil 1 gram tablet 1,000 mg PO BID Qty: 22 0RF valacyclovir 1 gram tablet 1,000 mg PO DAILY PRN (Reason: cold sore infection) Qty: 5 0RF fluconazole 150 mg tablet 150 mg PO Q3D PRN (Reason: yeast infection) Qty: 2 0RF Rx Instructions: may repeat second dose 72 hrs after first dose if symptoms persist Print Language: Slovak
--- NOTE | 2024-09-17 21:45 | PC.NURSE ---
PT spitting on floor and asked to stop, became irate at the request. PT calling TW racial slurs and other derogatory names. security called to bedside for safety. PT got OOB independently and stating Get me the fuck out of here Staff with pt by ED rear exit attempting to de-esclate however pt continued to yelling and threaten staff. called to PT for assessment in which she felt that pt was able to safely discharge. PT refused take home narcan, and any further care. Security escorted pt out of ED>
== END 2024-09-17 22:00 | disposition home or self-care (01) ==
PROVIDERS: Emergency Provider Emergency Medicine
DX: T40.601A Poisoning by unspecified narcotics, accidental (unintentional), initial encounter (principal); Y92.410 Unspecified street and highway as the place of occurrence of the external cause; F10.129 Alcohol abuse with intoxication, unspecified; Y90.9 Presence of alcohol in blood, level not specified; F31.9 Bipolar disorder, unspecified
CPT/HCPCS: 99281; 99282

== ENCOUNTER 2024-12-03 13:23 | Emergency (ER) | payer MEDICAID, SELFPAY ==
--- NOTE | ~2024-12-03 | XR_ITS ---
CLINICAL HISTORY: cough, dyspnea Exam: PA and lateral views of the chest. Comparison: Chest CT may 16, 2024. Findings: Mediastinal contours, cardiac silhouette, and pulmonary vasculature are within normal limits. Lungs are clear. No pleural effusion or pneumothorax. Impression: No acute findings. This document has been electronically signed by: Bradford Langley MD on 12/03/2024 15:10:21
--- NOTE | 2024-12-03 13:44 | ED.GENADULT ---
HPI - General Adult General Chief complaint: General Medical Stated complaint: coughing, sob Related Data Previous Rx's ?Medication ?Instructions ?Recorded cefadroxil 1 gram tablet 1,000 mg PO BID #22 tabs 05/20/24 fluconazole 150 mg tablet 150 mg PO Q3D PRN yeast infection 05/20/24 2 doses #2 tabs gabapentin 100 mg capsule 100 mg PO TID #90 caps 05/20/24 ibuprofen 600 mg tablet 600 mg PO Q6H PRN Pain, 05/20/24 Moderate(Pain Scale 4-6) #30 tabs methadone 10 mg/mL oral 60 mg (6 mL) PO DAILY@0800 #1 mL 05/20/24 concentrate (Methadose) nicotine 21 mg/24 hr daily 21 mg transdermal DAILY #30 ea 05/20/24 transdermal patch valacyclovir 1 gram tablet 1,000 mg PO DAILY PRN cold sore 05/20/24 infection #5 tabs Allergies Allergy/AdvReac Type Severity Reaction Status Date / Time No Known Allergies (No Known Allergy Verified 12/03/24 13:47 Allergies*) [facility] Past Medical History Medical History Alcohol use disorder, moderate, dependence Opioid use disorder, severe, dependence Bacteremia Left lower lobe pneumonia Cellulitis of right thigh Alcohol abuse Polysubstance (including opioids) dependence with physiol dependence Asthma Hypothyroid Social History Social History Household Members: Other Housing: House Do you presently have visiting nurse or other home services: No Alcohol intake: current Alcohol intake frequency: a few times a week Alcohol type: hard liquor Comment: rings appropriately, steady gait Patient Tobacco Use Status: Current everyday Tobacco user Substance Use Type: Crack/Cocaine and Heroin Advance Directives: No Advance Directives Information Provided: No Do you have a plan to hurt others: No Plan service: No Physical Exam ED Vital Signs: BMI result Body Mass Index 24.8 Course Course Course Narrative: This is a rapid medical exam performed by April Caballero NP: Additional HPI, ROS, PE not included below will be deferred to primary provider. Patient is a 34y/o F presenting to the ED with complaint of cough, states she is concerned she has pna again. Reports that she is currently homeless, using drugs but not currently injecting regularly (has occasionally), has abscess between toes of R foot but did not inject there. States after she was discharged from here recently she went [facility] to [facility] and her symptoms worsened. Plan: labs including cxs, CXR, ekg Patient left the emergency department before myself or any of the other clinicians could review or explain physical exam findings, test results, need or lack there of for additional testing, treatment options, or a treatment plan. Discharge Plan Discharge Clinical Impression: Cough Patient Disposition: Left W/O Completing Treatment Prescriptions: No Action nicotine 21 mg/24 hr Patch 24 Hour 21 mg transdermal DAILY Qty: 30 0RF gabapentin 100 mg Capsule 100 mg PO TID Qty: 90 0RF methadone [Methadose] 10 mg/mL Concentrate 60 mg PO DAILY@0800 Qty: 1 0RF Rx Instructions: Partial Fill upon patient request. ibuprofen 600 mg Tablet 600 mg PO Q6H PRN (Reason: Pain, Moderate(Pain Scale 4-6)) Qty: 30 0RF cefadroxil 1 gram tablet 1,000 mg PO BID Qty: 22 0RF valacyclovir 1 gram tablet 1,000 mg PO DAILY PRN (Reason: cold sore infection) Qty: 5 0RF fluconazole 150 mg tablet 150 mg PO Q3D PRN (Reason: yeast infection) Qty: 2 0RF Rx Instructions: may repeat second dose 72 hrs after first dose if symptoms persist Discharge Date/Time: 12/03/24 17:37
[2024-12-03 13:45] VITALS: BP 148/96; PULSE 97; RESP 18; TEMP 37; O2SAT 98; BMI 24.8
--- NOTE | 2024-12-03 13:48 | ECG_ITS ---
Test Reason : SOB Blood Pressure : */* mmHG Vent. Rate : 81 BPM Atrial Rate : 81 BPM P-R Int : 130 ms QRS Dur : 86 ms QT Int : 412 ms P-R-T Axes : 47 61 23 degrees QTcB Int : 478 ms Normal sinus rhythm Minimal voltage criteria for LVH, may be normal variant ( Sokolow-Pires ) Nonspecific ST abnormality Abnormal ECG When compared with ECG of 17-May-2024 13:25, QT has lengthened Referred By: Julia Caballero Electronically Signed By: KAMAR ROJAS MD
--- NOTE | 2024-12-03 14:18 | MHC.EDTECH ---
Pt is a very difficult stick. unable to obtain labs in triage.
--- OUTSIDE RECORDS SUMMARY | 2024-12-03 17:35 | XMS_ITS | Clinical Summary ---
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 Role Phone Maya Mendiola MD Primary [...] Cervical Cancer Screening: P ap Smear 2009 HPV Vaccines (1 - 3-dose SCD M series) 04/24/2015 HIV Screening 01/18/2022 Hepatitis C Screening 01/18/2022 Social Influencers of Health Screening 01/18/2022 Depression Screening 02/16/2024 COVID-19 Vaccine ( - 2023-2 5 season) 2024 Influenza Vaccine (#1) 2024 RSV Immunization Adult Patie nts (1 - 1-dose 75+ series) 04/24/2063 HIB Vaccines Aged Out No longer eligi [...] age to complete this topic Meningococcal B Vaccine Aged Out No l onger eligible based on patient's age to complete this topic Pneumococcal Vaccine: Pediat rics (0 to 5 Years) and At-Risk Patients (6 to 49 Years) Aged Out No longer eligible b ased on patient's age to complete this topic RSV Immunization Patients Un roberto 20 months Aged Out No longer eligible b ased on patient's age to complete this topic Varicella Vaccines Aged Out No longer eligible based on patient's age to complete this topic Care Teams Die Storage Worker Relationship Specialty Start Date End Date Maya Mendiola MD [address] [place] [address] PCP - General Internal Medicine 05/31/18
== END 2024-12-03 17:37 | disposition left against medical advice (07) ==
LOC: HO.ED 17:33
PROVIDERS: Emergency Provider Emergency Medicine
DX: R05.9 Cough, unspecified (principal); R06.02 Shortness of breath; R94.31 Abnormal electrocardiogram [ECG] [EKG]
CPT/HCPCS: 71046; 93005; 99283

== ENCOUNTER → 2024-12-03 13:47 | Outpatient (BNV) | payer MEDICAID, SELFPAY | PROVIDERS: Visit Provider Radiology Diagnostic Radiology | DX: R05.9 Cough, unspecified (principal) | CPT/HCPCS: 71046 ==

== ENCOUNTER → 2024-12-03 13:48 | Outpatient (BNV) | payer MEDICAID, SELFPAY | PROVIDERS: Emergency Provider Emergency Medicine; Visit Provider Internal Medicine Cardiovascular Disease | DX: R94.31 Abnormal electrocardiogram [ECG] [EKG] (principal); R06.02 Shortness of breath | CPT/HCPCS: 93010 ==